=== PATIENT | male | born 1955 ===

== ENCOUNTER 2018-12-29 13:56 | Inpatient (IN) | payer MEDICARE, MEDICAID ==
[~2018-12-29] VITALS: Ht 172.7 cm; Wt 90.1 kg
[2018-12-29] VITALS (33 sets, daily range): BP systolic 80–128; BP diastolic 47–98; BMI 29.4
--- NOTE | 2018-12-29 15:40 | NUR ---
REC'D VIA STRETCHER, AFVSS ON LEVOPHED.
--- NOTE | 2018-12-29 16:00 | NUR ---
ASSESSED. SPEECH UNCLEAR BUT CAN STATE NAME AND THAT HE IS IN HOSPITAL. BLE CEDRICK-WRAPPED TOES TO ABOVE KNEE- REMOVED- SKIN INTACT.
--- NOTE | 2018-12-29 17:00 | NUR ---
FAMILY IN AND UPDATED, HISTORY OBTAINED FROM DTR & MOM.
--- NOTE | 2018-12-29 17:45 | NUR ---
CONSENTS FOR CVL/ BLOOD TRANSFUSION OBTAINED FROM DTR.
--- NOTE | 2018-12-29 18:20 | NUR ---
UNSUCCESFUL IN PLACING NGT X 20MIN.
[2018-12-29 20:18] LABS: APTT 34.1 SECONDS (22.8-39.4); INR 1.62 (0.85-1.17); PROTIME 18.6 SECONDS (11.6-15.0)
[2018-12-29 20:48] LABS: BASOPHILS 0.6 % (0-2); HEMOGLOBIN 14.9 g/dL (13.5-17.5); IMMATURE GRANULOCYTES 1.6 % (0-5); LYMPHOCYTES 5.4 % (15-50); MCH 25.2 pg (26.0-34.0); MCHC 34.7 g/dL (31.0-37.0); MCV 72.6 fL (80.0-100.0); MONOCYTES 5.5 % (2-11); NEUTROPHILS 78.9 % (40-80); PLATELET COUNT 55 10x3/uL (130-400); RBC 5.92 10x6/uL (4.20-6.10); RDW 21.2 % (11.5-14.5); WBC 12.4 10x3/uL (4.8-10.8)
[2018-12-29 20:49] LABS: % SATURATION 90 % (15-55); IRON 104 ug/dl (35-150); TOTAL IRON BIND CAPACITY 115 ug/dl (260-445)
[2018-12-29 20:50] LABS: UNSAT IRON BIND CAPACITY 11 ug/dl (150-375)
[2018-12-29 21:05] LABS: ALBUMIN 1.8 g/dL (3.4-5.0); ANION GAP 21.5 mmol/L (8-16); CARBON DIOXIDE 10.6 mmol/L (21.0-32.0); CREATININE - SERUM 4.6 mg/dL (0.6-1.3); MAGNESIUM - SERUM 1.6 mg/dL (1.8-2.4); POTASSIUM - SERUM 4.1 mmol/L (3.5-5.1); PROTEIN - SERUM 4.7 g/dL (6.4-8.2)
[2018-12-29 21:07] LABS: CALCIUM 6.5 mg/dL (8.5-10.1)
[2018-12-29 21:08] LABS: PLATELET ESTIMATE DECREASED
[2018-12-30] VITALS (109 sets, daily range): BP systolic 72–130; BP diastolic 47–96; Ht 172.7 cm; Wt 90.1 kg
--- NOTE | 2018-12-30 00:27 | NUR ---
1900 ASSEMENT COMPLETED AT THIS TIME, GETTING SETUP FOR BEDSIE CVL PLACEMENT. PT ALERT AND AWAKES. PT ORIENTED ONLY TO PERSON. 1934 DR NGUYEN AT BEDSIDE FOR CVL PLACEMENT 1944 LAB AT BESIDE, BLOOD DRAWN AND GIVEN TO COMMERCIAL INTERN FOR PROCESSING
--- NOTE | 2018-12-30 00:34 | NUR ---
6934 DR RALPH CALLED ABOUT ABNORMAL PABS. NEW ORDERS GIVEN AT THIS TIME
--- NOTE | 2018-12-30 00:35 | NUR ---
1939 CVL IN GOOD PLACEMENT, AND OK TO USE PER DR. NGUYEN
--- NOTE | 2018-12-30 00:36 | NUR ---
2300 REASSESSMENT COMPLETED AT THIS TIME. PT MORE ALERT AND TALKING AT THIS TIME. HEMODYNAMICS STABLE AND WILL CONTINUE TO MONITOR
--- NOTE | 2018-12-30 01:09 | NUR ---
PT O2 SAT DECREASED TO 85 %, PT COULD NOT UNDERSTAND TO CLOSE HIS MOUTH TO BREATH. PT WAS PLACED ON VENT-MASK AT 40% SPO2 INCREASED TO 92%
--- NOTE | 2018-12-30 01:22 | NUR ---
PT IV TO LEFT HAND WAS NOTED TO BE LEAKING, IVF WAS MOVED TO THE IV IN LEFT FOREARM
--- NOTE | 2018-12-30 05:36 | NUR ---
DR RALPH CALLED ABOUT ABG RESULTS, ORDERED TO CALL ANESTHIA FOR INTUBATION
[2018-12-30 06:08] LABS: ALBUMIN 1.6 g/dL (3.4-5.0); BILIRUBIN - DIRECT 3.04 mg/dL (0.00-0.30); BILIRUBIN - INDIRECT 0.95 mg/dL (0.00-1.00); BILIRUBIN - TOTAL 3.99 mg/dL (0.2-1.3); CREATININE - SERUM 4.8 mg/dL (0.6-1.3); MAGNESIUM - SERUM 1.6 mg/dL (1.8-2.4); POTASSIUM - SERUM 4.5 mmol/L (3.5-5.1); PROTEIN - SERUM 4.9 g/dL (6.4-8.2)
--- NOTE | 2018-12-30 06:15 | NUR ---
PT INTUBATED WITH 8.0 ETT @ 22 CM AT THE LIP PLACEMENT CONFIRMED WITH COLOMETERIC ETCO2 AND 5 POINT AUSCULTATION
--- NOTE | 2018-12-30 06:16 | NUR ---
PROFILE GRINDER AT BEDSIDE FOR INTUBATION
[2018-12-30 06:20] LABS: HEMATOCRIT 43.4 % (42.0-54.0); MCH 25.4 pg (26.0-34.0); MCHC 34.6 g/dL (31.0-37.0); MCV 73.6 fL (80.0-100.0); PLATELET COUNT 54 10x3/uL (130-400); RDW 21.7 % (11.5-14.5); WBC 12.9 10x3/uL (4.8-10.8)
[2018-12-30 06:39] LABS: ANION GAP 17.3 mmol/L (8-16); CALCIUM 6.3 mg/dL (8.5-10.1); CARBON DIOXIDE 14.2 mmol/L (21.0-32.0)
--- NOTE | 2018-12-30 07:00 | NUR ---
REPORT RECEIVED. ASSESSMENT COMPLETE PER FLOW SHEET. VSS. PT RESTING COMFORTABLY WILL CONTINUE TO MONITOR
--- NOTE | 2018-12-30 07:54 | NUR ---
RADIOLOGY CALLED GIVEN UDPATE STATED PT ETT MAY NEED REPOSITIONING TO REVIEW WITH PHYSICIAN. RESP GIVEN UDPATE.
--- NOTE | 2018-12-30 09:25 | NUR ---
DR RIDLEY GIVEN UPDATE REGAURDING CONSULT
[2018-12-30 09:52] LABS: EOSINOPHILS 5 % (0-7); LYMPHOCYTES 7 % (15-50); MONOCYTES 16 % (2-11); NEUTROPHILS 66 % (40-80); PLATELET ESTIMATE DECREASED
[2018-12-30 09:53] LABS: ACANTHOCYTES OCC; ANISOCYTOSIS OCC; BURR CELLS OCC; CRENATED CELLS 1+
--- NOTE | 2018-12-30 11:15 | NUR ---
REASSESSMENT COMPLET EPER FLOW SHEET. VSS. NO NEW CHANGES WILL CONTINUE TO MONITOR
--- NOTE | 2018-12-30 13:15 | NUR ---
DR NGUYEN AT BEDSIDE GIVEN UPDATE NEW ORDERS RECEIVED
--- NOTE | 2018-12-30 15:00 | NUR ---
REASSESSMENT COMPLETE PER FLOW SHEET. VSS. NO NEW CHANGES WILL CONTINUE TO MONITOR
--- NOTE | 2018-12-30 17:20 | NUR ---
FAMILY CALLED GIVEN UPDATE NO NEW CHANGES
--- NOTE | 2018-12-30 18:18 | NUR ---
CHG BATH ADM
[2018-12-31] VITALS (99 sets, daily range): BP systolic 78–130; BP diastolic 40–99
--- NOTE | 2018-12-31 07:00 | NUR ---
REPORT RECEIVED. ASSESSMENT COMPLETE PER FLOW SHEET. VSS. PT RESTING COMFORTABLY WILL CONTINUE TO MONITOR
[2018-12-31 07:10] LABS: BASOPHILS 0.5 % (0-2); EOSINOPHILS 0.4 % (0-7); HEMATOCRIT 34.9 % (42.0-54.0); HEMOGLOBIN 12.4 g/dL (13.5-17.5); IMMATURE GRANULOCYTES 2.2 % (0-5); LYMPHOCYTES 7.4 % (15-50); MCH 25.2 pg (26.0-34.0); MCHC 35.5 g/dL (31.0-37.0); MONOCYTES 4.5 % (2-11); RBC 4.92 10x6/uL (4.20-6.10); RDW 20.9 % (11.5-14.5); WBC 10.2 10x3/uL (4.8-10.8)
--- NOTE | 2018-12-31 07:13 | NUR ---
1900 ASSESSMENT COMPLETED AT THIS TIME, TEMP WAS NOTED TO BE 94.6, WARMING BLANKET PLACED ON PATIENT. 2100 MEDICINES GIVEN AT THIS TIME. TEMP WAS IMPROVING. 2300 REASSESSMENT COMPLETED AT THIS TIME, TEMP IMPROVING 0100 PT TUENED AND REPOSTITIONED AT THIS TIME. NO CHANGES NOTED. 0300 REASSESSMENT COMPLETED AT THIS TIME. NO DISTRESS NOTED. WILL CONTINUE TO MONITOR. 0500 PT WAS TURNED AT THIS TIME AND SMALL BM NOTED, PERICARE WAS GIVEN. PT ILAN WELL.
[2018-12-31 07:16] LABS: MCV 70.9 fL (80.0-100.0)
[2018-12-31 07:17] LABS: PLATELET COUNT 41 10x3/uL (130-400)
[2018-12-31 07:31] LABS: CREATININE - SERUM 4.6 mg/dL (0.6-1.3); MAGNESIUM - SERUM 1.6 mg/dL (1.8-2.4); PHOSPHOROUS 3.3 mg/dL (2.5-4.9)
[2018-12-31 07:38] LABS: CARBON DIOXIDE 18.3 mmol/L (21.0-32.0)
--- NOTE | 2018-12-31 08:12 | NUR ---
DR NGUYEN AT BEDSIDE. GIVEN UDPATE REGUARDING CRITICAL LABS. NO NEW ORDERS AT THIS TIME WILL CONTINUE TO MONITOR
[2018-12-31 08:26] LABS: ANION GAP 17.2 mmol/L (8-16); POTASSIUM - SERUM 3.5 mmol/L (3.5-5.1)
--- NOTE | 2018-12-31 09:20 | NUR ---
DR RIDLEY AT BEDSIDE GIVEN UDPATE
--- NOTE | 2018-12-31 10:15 | NUR ---
DR RALPH AT BEDSIDE GIVEN UDPATE
--- NOTE | 2018-12-31 11:00 | NUR ---
REASSESSMENT COMPLETE PER FLOW SHEET. VSS. NO NEW CHNGES WILL CONTINUE TO MONITOR
--- NOTE | 2018-12-31 12:10 | NUR ---
DR SEAMAN CALLED [facility] CONSULT. STATED OKAY
--- NOTE | 2018-12-31 12:11 | NUR ---
DR WALTERS OFFICE CALLED GIVEN UPDATE REGUARIND CONSULT
[2018-12-31 12:50] LABS: COMPLEMENT C4 8.1 mg/dL (17.4-52.2)
[2018-12-31 13:05] LABS: APTT 39.3 SECONDS (22.8-39.4); INR 1.59 (0.85-1.17); PROTIME 18.3 SECONDS (11.6-15.0)
[2018-12-31 13:07] LABS: APPEARANCE CLOUDY (CLEAR); BILIRUBIN NEGATIVE (NEGATIVE); COLOR DK YELLOW (YELLOW); EPITHELIAL CELLS 0-5 /hpf (0-5); GLUCOSE NEGATIVE (NEGATIVE); KETONE NEGATIVE (NEGATIVE); NITRITE NEGATIVE (NEGATIVE); PROTEIN TRACE mg/dL (NEGATIVE); SPECIFIC GRAVITY 1.015 (1.005-1.020); UROBILINOGEN NORMAL (NORMAL)
[2018-12-31 13:08] LABS: AMORPHOUS SEDIMENT >1+ /lpf (NONE SEEN); BACTERIA FEW /hpf (NONE SEEN); GRANULAR CAST 0-5 /lpf (NONE SEEN); MUCUS <1+ /lpf (NONE SEEN)
[2018-12-31 14:25] LABS: ERYTHROCYTE SEDIMENTATION RATE 0 mm/hr (0-20)
--- NOTE | 2018-12-31 15:15 | NUR ---
REASSESSMENT COMPLETE PER FLOW SHEET. VSS. NO NEW CHANGES WILL CONTINUE TO MONTIOR
--- NOTE | 2018-12-31 15:54 | MORECARE ---
CASE MANAGEMENT DISCHARGE SUMMARY PATIENT: GUMARO EVANS UNIT: [id number] ADM DATE: 12/29/18 AGE: 63 : 53 SEX: M ROOM/BED: D.2301 AUTHOR: CAROLINE PARKER PHYSICIAN: REFERRING PHYSICIAN: KEMAL RALPH MD DATE OF SERVICE: 12/31/18 Discharge Plan Patient Name: GUMARO EVANS [facility] : 1955 Planned Disposition: Home Anticipated Discharge Date: Discharge Date: Expected LOS: Initial Reviewer: [email or web address] Initial Review Date: 12/31/2018 Generated: 12/31/18 4:54 pm DCPIA - Discharge Planning Initial Assessment Updated by [email or web address]: Amelia Fontaine on 12/31/18 3:47 pm * Is the patient Alert and Oriented? No * How many steps to enter\exit or inside your home? * PCP Faith Paige APN * Pharmacy [facility] currently doesn't have one in [place] * Preadmission Environment Home with Family * ADLs Independent * Equipment Cane * List name and contact numbers for known caregivers / representatives who currently or will assist patient after discharge: Dasha Ellington - mother- [phone], lBanche Aguilar - daughter- [phone] * Verbal permission to speak to the caregivers and representatives has been obtained from the patient. N/A * Community resources currently utilized None * Additional services required to return to the preadmission environment? No * Can the patient safely return to the preadmission environment? Yes * Has this patient been hospitalized within the prior 30 days at any hospital? No Patient Name: GUMARO EVANS Page [phone] at 1554 All edits/amendments must be made on the electronic document DICTATION DATE: 12/31/181553 PEN RIDER: ROBERTO 12/31/181553 RPT#: [id number] DC DATE: STATUS: ADM IN [facility] [address] [place] [address] END OF REPORT
--- NOTE | 2018-12-31 16:04 | MORECARE ---
CASE MANAGEMENT DISCHARGE SUMMARY PATIENT: GUMARO EVANS UNIT: [id number] ADM DATE: 12/29/18 AGE: 63 : 53 SEX: M ROOM/BED: D.2301 AUTHOR: KEITH,DOC PHYSICIAN: REFERRING PHYSICIAN: KEMAL RALPH MD DATE OF SERVICE: 12/31/18 Discharge Plan Patient Name: GUMARO EVANS Facility: [facility]:[place] : 1955 Planned Disposition: Home Anticipated Discharge Date: Discharge Date: Expected LOS: Initial Reviewer: [email or web address] Initial Review Date: 12/31/2018 Generated: 12/31/18 5:03 pm Comments DCP- Discharge Planning Updated by [email or web address]: Amelia Fontaine on 12/31/18 2:[address] Patient Name: GUMARO EVANS Admission Status: Elective Accout number: [id number] Admission Date: 12-29-2018 : 1955 Admission Diagnosis: Attending: KEMAL RALPH Current LOS: 2 Anticipated DC Date: Planned Disposition: Home Primary Insurance: [facility] [employer] [employer]UT[employer] Discharge Planning Comments: CM met with patient's Mother Dasha and daughter Blanche at bedside after explaining CM role and obtaining verbal consent. Patient is currently sedated on vent. Patient lives at home with his mother and plans to return there upon discharge. Dasha states that she recently moved the patient in with her in [place] from [place]. CM discussed availability / needs of home health and medical equipment. Dasha states that the patient has a cane but no other medical equipment. Dasha states he may need home health upon discharge. Patient may require Hemodialysis as an outpatient CM will continue to follow and assist as needed with discharge planning / needs. Paving Contractor: Amelia Fontaine DCPIA - Discharge Planning Initial Assessment Updated by [id number]: Amelia Fontaine on 12/31/18 3:47 pm * Is the patient Alert and Oriented? No * How many steps to enter\exit or inside your home? * PCP Faith Paige APN * Pharmacy [facility] currently doesn't have one in [place] * Preadmission Environment Home with Family * ADLs Independent * Equipment Cane * List name and contact numbers for known caregivers / representatives who currently or will assist patient after discharge: Dasha Ellington - mother- [phone], Blanche Aguilar - daughter- [phone] * Verbal permission to speak to the caregivers and representatives has been obtained from the patient. N/A * Community resources currently utilized None * Additional services required to return to the preadmission environment? No * Can the patient safely return to the preadmission environment? Yes * Has this patient been hospitalized within the prior 30 days at any hospital? No Last DP export: 12/31/18 2:54 p Patient Name: GUMARO EVANS Page [phone] at 1604 All edits/amendments must be made on the electronic document DICTATION DATE: 12/31/181602 TRAINING SYSTEMS OFFICER: ROBERTO 12/31/181602 RPT#: [id number] DC DATE: STATUS: ADM IN [facility] [address] [place] [address] END OF REPORT
--- NOTE | 2018-12-31 16:15 | NUR ---
DR NGUYEN CALLED AWAITING CALL BACK
--- NOTE | 2018-12-31 17:50 | NUR ---
DR NGUYEN AT BEDSIDE. L IJ TRAIALYSIS CATH ADM
--- NOTE | 2018-12-31 19:00 | NUR ---
REPORT RECEIVED. RECEIVED PATIENT IN BED, SEDATED/INTUBATED. ROUSES TO LIGHT TOUCH. ETT INTACT/SECURE/PATENT AND CONNECTED TO [facility] VENT WITH SETTINGS ORDERED. HOB UP 30 DEGREES. MONITORS CONNECTED TO PATIENT WITH ALARMS SET. VSS. ON LEVOPHED GTT TITRATED PER ORDER. RECEIVING HD AT THIS TIME. DIALYSIS NURSE AT BEDSIDE. SHIFT ASSESSMENT COMPLETED PER FLOW SHEET.
--- NOTE | 2018-12-31 20:50 | NUR ---
SPOKE WITH DR. RIDLEY. UPDATED ON PATIENT CONDITION. NEW ORDERS RECEIVED.
--- NOTE | 2018-12-31 21:45 | NUR ---
PT RESTING ON AC 550, 18, 70% SATS 99%. I CHANGED THE FIO2 TO 60% SATS 97% AND HOLDING. WILL CONTINUE TO MONITOR
[2019-01-01] VITALS (48 sets, daily range): BP systolic 84–139; BP diastolic 54–98
[2019-01-01 05:41] LABS: INR 1.45 (0.85-1.17)
[2019-01-01 05:42] LABS: CREATININE - SERUM 3.6 mg/dL (0.6-1.3); HEMATOCRIT 30.5 % (42.0-54.0); MCHC 36.1 g/dL (31.0-37.0); MCV 69.3 fL (80.0-100.0)
[2019-01-01 05:45] LABS: ANION GAP 14.2 mmol/L (8-16); CARBON DIOXIDE 23.8 mmol/L (21.0-32.0)
[2019-01-01 05:46] LABS: WBC 13.2 10x3/uL (4.8-10.8)
[2019-01-01 05:47] LABS: PLATELET COUNT 35 10x3/uL (130-400)
--- NOTE | 2019-01-01 07:00 | NUR ---
REPORT RECEIVED. ASSESSMENT COMPLETE PER FLOW SHEET. VSS. NO NEW CHANGES WILL CONTINUE TO MONITOR
[2019-01-01 08:48] LABS: EOSINOPHILS 1 % (0-7); LYMPHOCYTES 4 % (15-50); MONOCYTES 5 % (2-11); NEUTROPHILS 83 % (40-80); SMUDGE CELLS OCC
[2019-01-01 08:49] LABS: ANISOCYTOSIS OCC; PLATELET ESTIMATE DECREASED
--- NOTE | 2019-01-01 09:10 | NUR ---
COMPLETE BB LINEN CHANGE ADM LARGE LOOSE BM NOTED. WILL CONTINUE TOMONITOR
--- NOTE | 2019-01-01 09:12 | NUR ---
Nutrition follow-up: Pt remains NPO Intubated, sedated on propofol Levophed in use Labs reviewed Will start nutrition support as soon as medically feasible. RDN following.
[2019-01-01 10:10] LABS: HAPTOGLOBIN 105 mg/dL (34-200); HAPTOGLOBIN 107 mg/dL (34-200); HEPATITIS C ANTIBODY <0.1 S/CO RAT (0.0-0.9)
--- NOTE | 2019-01-01 10:16 | NUR ---
DIALYSIS AT BEDSIDE. GIVEN UPDATE. WILL CONTINUE TO MONITOR
--- NOTE | 2019-01-01 11:00 | NUR ---
REASSESSMENT COMPLETE PER FLOW SHEET.V SS. NO NEW CHANGES WILL CONTINUE TO MONITOR
--- NOTE | 2019-01-01 11:00 | NUR ---
REASSESSMENT COMPELTE PER FLOW SHEET. VSS. NO NEW CHANGES WILL CONTINUET O MONITOR
[2019-01-01 12:09] LABS: ANA REFLEX - DIRECT Negative (Negative)
--- NOTE | 2019-01-01 12:50 | NUR ---
ATTEMPT TO CALL IN CONSULT FOR DERMATOLOGY. CLINIC STATED TYSON ANTHONY WAS PHOTOCOMPOSING KEYBOARD OPERATOR AT THIS TIME CLINIC GAVE ME HER PHONE NUMBER [phone]. NO ANSWER LEFT VOICE MAIL. WILL ATTEMPT AGAIN AT LATER TIME IF NO CALL BACK.
--- NOTE | 2019-01-01 12:56 | NUR ---
TYSON MIXON CALLED BACK STATED SHE WOULD NEED A DOC TO DOC BEFORE SEEING THE PATIENT. DR RALPH GIVEN THE PHONE DOC TO DOC ADM.
--- NOTE | 2019-01-01 14:30 | NUR ---
PROPOFOL D.C.'D PER ORDER
--- NOTE | 2019-01-01 15:00 | NUR ---
REASSESSMENT COMPLETE PER FLOW SHEET. VSS. NO NEW CHANGES WILL CONTINUET O MONITOR
[2019-01-01 17:08] LABS: SPE - A/G RATIO 0.8 (0.7-1.7); SPE - ALBUMIN 1.5 g/dL (2.9-4.4); SPE - ALPHA-1 GLOBULIN 0.2 g/dL (0.0-0.4); SPE - ALPHA-2 GLOBULIN 0.4 g/dL (0.4-1.0); SPE - BETA GLOBULIN 0.4 g/dL (0.7-1.3); SPE - GAMMA GLOBULIN 0.8 g/dL (0.4-1.8); SPE - M-SPIKE Not Observed g/dL (Not Observed); SPE - TOTAL PROTEIN 3.3 g/dL (6.0-8.5)
--- NOTE | 2019-01-01 17:15 | NUR ---
REPOSITIONED FOR COMFORT ORAL CARE ADM. NEEDS MET
[2019-01-02] VITALS (27 sets, daily range): BP systolic 92–156; BP diastolic 63–108
[2019-01-02 07:02] LABS: ANION GAP 11.5 mmol/L (8-16); CARBON DIOXIDE 26.6 mmol/L (21.0-32.0); CREATININE - SERUM 3.3 mg/dL (0.6-1.3); POTASSIUM - SERUM 3.1 mmol/L (3.5-5.1)
[2019-01-02 07:12] LABS: HEMATOCRIT 26.4 % (42.0-54.0); HEMOGLOBIN 9.3 g/dL (13.5-17.5); MCH 24.3 pg (26.0-34.0); MCHC 35.2 g/dL (31.0-37.0); MCV 68.9 fL (80.0-100.0); RBC 3.83 10x6/uL (4.20-6.10); RDW 19.4 % (11.5-14.5); WBC 12.3 10x3/uL (4.8-10.8)
[2019-01-02 07:13] LABS: CALCIUM 6.7 mg/dL (8.5-10.1)
[2019-01-02 07:14] LABS: PLATELET COUNT 34 10x3/uL (130-400)
--- NOTE | 2019-01-02 07:34 | NUR ---
UP IN BED ON VENT AT THIS TIME. PT AWAKE, NOT ON ANY SEDATION. ABLE TO ANSWER YES AND NO QUESTIONS AND FOLLOW COMMANDS. NO ACUTE DISTRESS NOTED. OGT TO LOW INT SUCTION. VSS. WILL CONTINUE PLAN OF CARE.
[2019-01-02 08:36] LABS: APTT 30.3 SECONDS (22.8-39.4); INR 1.37 (0.85-1.17); PROTIME 16.3 SECONDS (11.6-15.0)
[2019-01-02 09:02] LABS: EOSINOPHILS 1 % (0-7); LYMPHOCYTES 10 % (15-50); MONOCYTES 6 % (2-11); NEUTROPHILS 80 % (40-80)
[2019-01-02 09:10] LABS: PLATELET ESTIMATE DECREASED
[2019-01-02 09:11] LABS: ANISOCYTOSIS OCC; CRENATED CELLS 1+; HYPOCHROMASIA OCC; ROULEAUX OCC; SMUDGE CELLS OCC
--- NOTE | 2019-01-02 09:35 | NUR ---
ON CPAP TRIALS AT THIS TIME. TOLERATING WELL. NO ACUTE DISTRESS NOTED. VSS. PT REQUESTED TO WATCH TV, TV TURNED ON TO PT. PT DENIES ANY NEEDS. WILL CONTINUE PLAN OF CARE.
--- NOTE | 2019-01-02 11:35 | NUR ---
NO CHANGE. NO ACUTE DISTRESS NOTED. TURNED Q2H, ORAL CARE PROVIDED Q2H. WILL CONTINUE PLAN OF CARE.
--- NOTE | 2019-01-02 13:10 | NUR ---
NO CHANGE. NO ACUTE DISTRESS NOTED. PT ABLE TO COMMUNICATE NEEDS. STILL ON CPAP TRIAL. PT TURNED Q2H, ORAL CARE PROVIDED Q2H. WILL CONTINUE PLAN OF CARE.
[2019-01-02 13:40] LABS: MAGNESIUM - SERUM 1.6 mg/dL (1.8-2.4)
[2019-01-02 13:42] LABS: PHOSPHOROUS 2.4 mg/dL (2.5-4.9)
[2019-01-02 14:09] LABS: EHRLICHIA CHAFF IGG Negative (Neg:<1:64); EHRLICHIA CHAFF IGM Negative (Neg:<1:20); HGE IGG TITER Negative (Neg:<1:64); HGE IGM TITER Negative (Neg:<1:20)
--- NOTE | 2019-01-02 15:41 | NUR ---
NO ACUTE DISTRESS NOTED. NO CHANGE. VSS. TURNED Q2H. WILL CONTINUE PLAN OF CARE.
--- NOTE | 2019-01-02 17:03 | NUR ---
LYING IN BED ON VENT AT THIS TIME. EYES OPEN. DENIES ANY NEEDS. NO ACUTE DISTRESS NOTED. TURNED Q2H. ORAL CARE PROVIDE Q2H. WILL CONTINUE PLAN OF CARE.
[2019-01-02 17:08] LABS: ANCA - ANTIMYELOPEROXIDASE <9.0 U/mL (0.0-9.0); ANCA - ANTIPROTEINASE 3 <3.5 U/mL (0.0-3.5); ANCA - ATYPICAL <1:20 titer (Neg:<1:20); ANCA - CYTOPLASMIC <1:20 titer (Neg:<1:20); ANCA - PERINUCLEAR <1:20 titer (Neg:<1:20)
--- NOTE | 2019-01-02 18:56 | NUR ---
UNABLE TO DETERMINE PREFERRED PHARMACY OR MED REC AT THIS TIME. PER NEXT SHIFT NURSE WILL ASK FAMILY TONIGHT.
[2019-01-02 19:08] LABS: UPE RAND - ALBUMIN 49.6 % (()); UPE RAND - ALPHA 1 GLOBULIN 5.4 % (()); UPE RAND - ALPHA 2 GLOBULIN 14.8 % (()); UPE RAND - GAMMA GLOBULIN 13.3 % (())
[2019-01-03] VITALS (23 sets, daily range): BP systolic 97–150; BP diastolic 70–112
[2019-01-03 04:07] LABS: FIBRIN SPLIT PRODUCTS 10 ug/mL (<5)
[2019-01-03 05:15] LABS: BASOPHILS 0.3 % (0-2); EOSINOPHILS 0 % (0-7); HEMATOCRIT 27.8 % (42.0-54.0); HEMOGLOBIN 9.5 g/dL (13.5-17.5); IMMATURE GRANULOCYTES 2.3 % (0-5); LYMPHOCYTES 7.8 % (15-50); MCH 24.9 pg (26.0-34.0); MCHC 34.2 g/dL (31.0-37.0); MONOCYTES 6.7 % (2-11); NEUTROPHILS 82.9 % (40-80); RBC 3.82 10x6/uL (4.20-6.10); RDW 20.3 % (11.5-14.5)
[2019-01-03 05:18] LABS: MCV 72.9 fL (80.0-100.0); PLATELET COUNT 41 10x3/uL (130-400)
[2019-01-03 05:31] LABS: ANION GAP 14.9 mmol/L (8-16); CARBON DIOXIDE 23.9 mmol/L (21.0-32.0); CREATININE - SERUM 3.5 mg/dL (0.6-1.3); MAGNESIUM - SERUM 1.9 mg/dL (1.8-2.4); PHOSPHOROUS 2.8 mg/dL (2.5-4.9); POTASSIUM - SERUM 3.8 mmol/L (3.5-5.1)
--- NOTE | 2019-01-03 08:51 | NUR ---
ORAL CONTRANST FOR CT GIVEN AT THIS TIME THROUGH OG TUBE. CT WILL BE HERE TO GET PATIENT IN 1HR.
--- NOTE | 2019-01-03 09:41 | NUR ---
NUTRITION F/U CHART, LABS REVIEWED. PT REMAINS ON VENT, TPN INFUSING AT 40 CC/HR. 20% INTRALIPIDS 250 CC/Q [address] FOLLOWING
--- NOTE | 2019-01-03 09:45 | NUR ---
DR. RIDLEY AT BEDSIDE. ORDERED 25MCG FENTANYL X 1. ASSESS HR AND BP AFTER FENTANYL IS GIVEN.
[2019-01-03 10:10] LABS: ANTI-GLOMERULAR BASMENT MEMBRN 2 units (0-20)
--- NOTE | 2019-01-03 10:20 | NUR ---
PT TRANSPORTED TO RADIOLOGY FOR CT SCAN OF ABDOMEN.
--- NOTE | 2019-01-03 11:37 | NUR ---
TEMPERATURE 101.3. DR. RALPH NOTIFIED. ORDERED BLOOD CULTURES AND TYLENOL 650 SUPPOSITORY.
--- NOTE | 2019-01-03 11:49 | NUR ---
SPOKE WITH DR. RIDLEY TO UPDATE ON HR AND BP AFTER FENTANYL WAS GIVEN. ALSO TOLD HIM PT HAS FEVER. HE ORDERED DIETARY CONSULT FOR ADVISE ON TUBE FEEDINGS.
--- NOTE | 2019-01-03 12:06 | NUR ---
SMALL AMOUNT OF LOOSE, DARK GREEN STOOL NOTED AT THIS TIME. PARTIAL LINEN AND PERICARE PROVIDED AT THIS TIME.
--- NOTE | 2019-01-03 13:55 | NUR ---
DIALYSIS NURSE IN ROOM AT THIS TIME. ORAL TEMP 98.2. WILL CONTINUE TO MONITOR.
--- NOTE | 2019-01-03 14:41 | NUR ---
HR WENT UP INTO 130-140S WHEN DIALYSIS WAS STARTED. DR. RIDLEY NOTIFIED. ORDERED FENTANYL 25MCG Q 2HR PRN FOR AGITATION. FENTANYL GIVEN AT THIS TIME. WILL CONTINUE TO MONITOR.
[2019-01-03 15:10] LABS: RMSF IGM 0.29 index (0.00-0.89)
--- NOTE | 2019-01-03 16:31 | NUR ---
DIALYSIS FINISHED AT THIS TIME. TOOK 1.5L OFF WITH DIALYSIS. PT RESTING COMFORTABLY. WILL CONTINUE TO MONITOR.
--- NOTE | 2019-01-03 17:43 | NUR ---
CHG BATH GIVEN. COMPLETE LINEN CHANGED. AQUAPHOR CREAM APPLIED TO SKIN. SKIN TEAR NOTED ON R-FOREARM, LEFT ARM, AND LEFT KNEE. MODERATED AMOUNT OF DARK, GREEN, LOOSE STOOL NOTED AT THIS TIME. PERICARE AND XIAO CARE PROVIDED. PT TOLERATED WELL. REPOSITIONED FOR COMFORT. WILL CONTINUE TO MONITOR.
--- NOTE | 2019-01-03 18:02 | NUR ---
OSMOLITE 1.0 TUBE FEEDING INITIATED AT THIS TIME VIA OGT. RATE OF 22CC/HR WITH 100CC WATER FLUSH Q 4HR.
[2019-01-03 18:08] LABS: ADAMTS13 ACTIVITY 20.7 % (>66.8)
--- NOTE | 2019-01-03 21:20 | NUR ---
NO VISITORS PRESENT AT THIS TIME, VSS, CONT TO MONITOR.
[2019-01-04] VITALS (23 sets, daily range): BP systolic 107–132; BP diastolic 76–97
--- NOTE | 2019-01-04 01:00 | NUR ---
PT POSITIONED FOR COMFORT SUPPORTED WITH PILLOWS, ORAL CARE AND SUCTIONING PROVIDED, VSS.
--- NOTE | 2019-01-04 05:22 | NUR ---
NO VISITORS PRESENT AT THIS TIME, VSS, CONT POC.
[2019-01-04 05:42] LABS: HEMATOCRIT 25.9 % (42.0-54.0); HEMOGLOBIN 8.8 g/dL (13.5-17.5); MCH 24.5 pg (26.0-34.0); MCV 72.1 fL (80.0-100.0); RBC 3.59 10x6/uL (4.20-6.10); RDW 20.5 % (11.5-14.5); WBC 11.5 10x3/uL (4.8-10.8)
[2019-01-04 05:43] LABS: PLATELET COUNT 37 10x3/uL (130-400)
[2019-01-04 06:01] LABS: ANION GAP 15.3 mmol/L (8-16); CARBON DIOXIDE 24.5 mmol/L (21.0-32.0); CREATININE - SERUM 3.3 mg/dL (0.6-1.3); MAGNESIUM - SERUM 1.9 mg/dL (1.8-2.4); POTASSIUM - SERUM 3.8 mmol/L (3.5-5.1)
[2019-01-04 06:05] LABS: PHOSPHOROUS 3.6 mg/dL (2.5-4.9)
[2019-01-04 06:29] LABS: EOSINOPHILS 1 % (0-7); LYMPHOCYTES 21 % (15-50); MONOCYTES 8 % (2-11); NEUTROPHILS 70 % (40-80); PLATELET ESTIMATE DECREASED
--- NOTE | 2019-01-04 08:26 | NUR ---
UP IN BED ON VENT AT THIS TIME. NO ACUTE DISTRESS NOTED. VSS. PT OPENS EYES WHEN SPOKEN TO AND FOLLOWS COMMANDS. TURNED Q2H. ORAL CARE PROVIDED Q2H. WILL CONTINUE PLAN OF CARE.
--- NOTE | 2019-01-04 08:32 | NUR ---
Nutrition follow-up: TPN infusing @ 40 ml/hr; intralipids Q 72 hrs Osmolite @ 20 ml/hr per Dr Damon until Sunday Labs reviewed Continue current TPN RDN following.
--- NOTE | 2019-01-04 09:33 | NUR ---
PER DR RIDLEY, PLACE PT ON CPAP TRIAL, DC TPN AFTER THIS CURRENT BAG COMPLETES, DC ALL OTHER IV FLUID.
--- NOTE | 2019-01-04 11:02 | NUR ---
NO CHANGE. NO ACUTE DISTRESS NOTED. VSS. PT TURNED Q2H. ORAL CARE PROVIDED Q2H. WILL CONTINUE PLAN OF CARE.
--- NOTE | 2019-01-04 12:32 | NUR ---
BLOOD GLUCOSE 406, PER DR RALPH INCREASE SLIDING SCALE RESISTANCE FROM LOW RESISTANCE TO INTERMEDIATE RESISTANCE. PTS FAMILY AT BEDSIDE. NO ACUTE DISTRESS NOTED. VSS. PT AWAKE ON VENT, FOLLOWS COMMANDS AND ANSWERS QUESTIONS. WILL CONTINUE PLAN OF CARE.
[2019-01-04] MEDS ORDERED: POTASSIUM CHLO20 MEQ PO (12:44)
[2019-01-04] MEDS ORDERED: LASIX80 MG PO (12:44)
[2019-01-04] MEDS ORDERED: GLUCOPHAGE500 MG PO (12:44)
--- NOTE | 2019-01-04 12:46 | NUR ---
MED REC AND PREFERRED PHARMACY CONFIRMED WITH PTS MOTHER AT THIS TIME.
--- NOTE | 2019-01-04 14:40 | NUR ---
CURRENTLY ON DIALYSIS, PT HAS BEEN ON CPAP TRIAL SINCE AROUND 929, NOW APPEARS TO EXPERIENCE DISTRESS WITH HEART RATE NOW INCREASED TO 118 SINUS TACH. BY REPIRATORY THERAPIST, VENT SETTINGS CHANGED BACK TO ASSIST CONTROL TO ALLOW PT TO REST. PT TURNED Q2H. ORAL CARE PROVIDED Q2H. WILL CONTINUE TO CLOSELY OBSERVE.
--- NOTE | 2019-01-04 15:47 | NUR ---
WILL HOLD SCHEDULED ANTIBIOTIC UNTIL DIALYSIS COMPLETE.
--- NOTE | 2019-01-04 16:35 | NUR ---
CHG BATH GIVEN AT THIS TIME, TOTAL LINEN CHANGE PROVIDED. NO ACUTE DISTRESS NOTED. PT TURNED Q2H, ORAL CARE PROVIDED Q2H. WILL CONTINUE PLAN OF CARE.
--- NOTE | 2019-01-04 18:05 | NUR ---
NO ACUTE DISTRESS NOTED. NO CHANGE. VSS. PT AWAKE ON VENT, FOLLOWS COMMANDS. WILL CONTINUE PLAN OF CARE.
--- NOTE | 2019-01-04 19:00 | NUR ---
REPORT RECEIVED INITIAL ASSESSMENT COMPLETE. PT OPENS EYES SPONTANEOUSLY FOLLOWS COMMANDS AND NODS HEAD TO QUESTIONS. CVP READING 17. CM READING SR WITHOUT ECTOPY ALARMS ON AND AUDIBLE. NO S/S OF DISTRESS WILL MONITOR
[2019-01-04] MEDS ORDERED: COREG6.25 MG PO (19:40)
[2019-01-04] MEDS ORDERED: ULTRAM50 MG PO (19:41)
--- NOTE | 2019-01-04 20:45 | NUR ---
PTS MOTHER CALLED GAVE PASSCODE AND THEN REPORTED COUPLE OF MEDICINES SHE COULD NOT REMEMBER WHEN SHE WAS ASKED ABOUT HIS HOME MEDICATIONS.
--- NOTE | 2019-01-04 23:00 | NUR ---
REASSESSMENT MADE NO CHANGES PTS CVP HAVE BEEN 17-19. VSS NO S/S OF PAIN OR DISTRESS CPOC
[2019-01-05] VITALS (24 sets, daily range): BP systolic 96–136; BP diastolic 73–95
--- NOTE | 2019-01-05 01:00 | NUR ---
PT RESTING QUIETLY VSS NO DISTRESS NOTED CPOC
--- NOTE | 2019-01-05 03:00 | NUR ---
REASSESSMENT MADE PT NODS HEAD NO TO QUESTION OF PAIN REPOSITIONED FOR COMFORT. CPOC
--- NOTE | 2019-01-05 06:15 | NUR ---
PT ACCUCHECK 295 THIS AM COVERED PER SS SEE EMAR. CPOC
[2019-01-05 06:40] LABS: ANION GAP 14.6 mmol/L (8-16); CALCIUM 7.3 mg/dL (8.5-10.1); CARBON DIOXIDE 24.4 mmol/L (21.0-32.0); CREATININE - SERUM 2.8 mg/dL (0.6-1.3)
[2019-01-05 07:04] LABS: BASOPHILS 0.2 % (0-2); EOSINOPHILS 0.1 % (0-7); HEMATOCRIT 25.5 % (42.0-54.0); HEMOGLOBIN 8.9 g/dL (13.5-17.5); IMMATURE GRANULOCYTES 2.1 % (0-5); LYMPHOCYTES 3.8 % (15-50); MCH 24.9 pg (26.0-34.0); MCHC 34.9 g/dL (31.0-37.0); MCV 71.2 fL (80.0-100.0); MONOCYTES 7.2 % (2-11); NEUTROPHILS 86.6 % (40-80); RBC 3.58 10x6/uL (4.20-6.10); RDW 20.2 % (11.5-14.5); WBC 13.3 10x3/uL (4.8-10.8)
[2019-01-05] MEDS ORDERED: COREG6.25 MG PO (07:18)
[2019-01-05] MEDS ORDERED: ZYLOPRIM300 MG PO (07:19)
[2019-01-05 07:26] LABS: PLATELET COUNT 42 10x3/uL (130-400)
--- NOTE | 2019-01-05 08:06 | NUR ---
LYING IN BED ON VENT AT THIS TIME WITH EYES OPEN, FOLLOWS COMMANDS. NO ACUTE DISTRESS NOTED. OGT TUBE FEEDING RESIDUAL NOTED AT 5ML. PT CALM. VSS. TURNED Q2H, ORAL CARE PROVIDED Q2H. WILL CONTINUE PLAN OF CARE.
--- NOTE | 2019-01-05 10:03 | NUR ---
PT HAS BEEN EXTUBATED AT 1000 ON 3L NC. OXYGEN SATURATION AT 97%. AT THIS TIME PTS BROTHER CALLED FOR UPDATE, NOTIFIED THAT PT HAS BEEN EXTUBATED. HE STATED HE WAS ON HIS WAY TO SEE PT AND WOULD NOTIFY THE REST OF THE FAMILY. NO ACUTE DISTRESS NOTED. VSS. WILL CONTINUE PLAN OF CARE.
--- NOTE | 2019-01-05 11:45 | NUR ---
HEART RATE NOTED TRENDING 136 SINUS TACH. EKG OBTAINED AND CONFIRMED SINUS TACH. EKG WAS OBTAINED PER DR RALPH ORDERS. OXYGEN SATURATION NOTED TO TREND 89%-91% ON 4L NC. PER DR RIDLEY, PLACE BIPAP. BIPAP IN PLACE AT THIS TIME FIO2 AT 40%. WILL CONTINUE PLAN OF CARE.
--- NOTE | 2019-01-05 12:23 | NUR ---
PT RESTING IN BED WITH EYES CLOSED ON BIPAP AT THIS TIME. NO ACUTE DISTRESS NOTED. HEART RATE SINUS IN 90S. WILL CONTINUE TO OBSERVE.
--- NOTE | 2019-01-05 14:22 | NUR ---
LYING IN BED ON BIPAP AT THIS TIME. NO ACUTE DISTRESS NOTED. PT EYES CLOSED. RESPIRATIONS UNLABORED AND STEADY. VSS. WILL CONTINUE PLAN OF CARE.
--- NOTE | 2019-01-05 14:55 | NUR ---
PER DR SEAMAN; KEEP PT NPO UNTIL SPEECH EVAL FOR TOMORROW THEN WILL DECIDE HOW TO PROGRESS DIRECTED BY SURGEON.
--- NOTE | 2019-01-05 16:08 | NUR ---
NO ACUTE DISTRESS NOTED. NO CHANGE. PT TURNED Q2H. ORAL CARE PROVIDED Q2H. VSS. WILL CONTINUE PLAN OF CARE.
--- NOTE | 2019-01-05 18:52 | NUR ---
NO ACUTE DISTRESS NOTED. VSS. PT RECIEVING DIALYSIS AT THIS TIME. WILL CONTINUE PLAN OF CARE.
--- NOTE | 2019-01-05 19:00 | NUR ---
REPORT RECIEVED, PATIENT IN BED RECIEVING DIALYSIS AT THIS TIME. ASESSMENT COMPLETED, SEE FLOWSHEET. RT SUBCLAVIAN IV INFUSING, SEE IV FLOWSHEET. LT IJ TRIALYSIS IN PLACE. SCD'S IN PLACE AND ON, PT ON BIPAP AT 40% FIO2. VITALS STABLE, NO ACUTE DISTRESS NOTED AT THIS TIME.
--- NOTE | 2019-01-05 21:00 | NUR ---
TOTAL ORAL CARE DONE, PT GIVEN BREAK FROM BIPAP, 4L NC, TOLERATING WELL WITH O2 AT 96%. NO ACUTE DISTRESS NOTED.
--- NOTE | 2019-01-05 23:00 | NUR ---
CHG BATH GIVEN, COMPLETE LINEN CHANGE, ORAL CARE GIVEN. BREAK FROM BIPAP WITH 4L NC, TOLERATING WELL AT 94% O2. NO ACUTE DISRESS NOTED. VITALS STABLE WILL CONTINUE TO MONITOR.
[2019-01-06] VITALS (24 sets, daily range): BP systolic 113–130; BP diastolic 79–96
--- NOTE | 2019-01-06 01:07 | NUR ---
PT RESTING IN BED, NO SIGNS OF ACUTE DISTRESS. VITALS STABLE, WILL CONTINUE TO MONITOR.
--- NOTE | 2019-01-06 03:00 | NUR ---
PT RESTING, BIPAP ON, NO SIGNS OF ACUTE DISTRESS.
[2019-01-06 05:21] LABS: HEMATOCRIT 25.4 % (42.0-54.0); HEMOGLOBIN 8.8 g/dL (13.5-17.5); MCHC 34.6 g/dL (31.0-37.0); MCV 72.2 fL (80.0-100.0); RBC 3.52 10x6/uL (4.20-6.10); RDW 20.8 % (11.5-14.5); WBC 12.5 10x3/uL (4.8-10.8)
[2019-01-06 05:22] LABS: PLATELET COUNT 48 10x3/uL (130-400)
[2019-01-06 05:42] LABS: LYMPHOCYTES 13 % (15-50); MONOCYTES 7 % (2-11); NEUTROPHILS 78 % (40-80)
[2019-01-06 05:43] LABS: CALCIUM 7.4 mg/dL (8.5-10.1); CARBON DIOXIDE 24.9 mmol/L (21.0-32.0); CREATININE - SERUM 2.9 mg/dL (0.6-1.3); MAGNESIUM - SERUM 2.1 mg/dL (1.8-2.4); PHOSPHOROUS 4.9 mg/dL (2.5-4.9); PLATELET ESTIMATE DECREASED; POTASSIUM - SERUM 3.9 mmol/L (3.5-5.1)
--- NOTE | 2019-01-06 07:00 | NUR ---
REC'D REPORT AND RESUMED CARE, AWAKE, FOLLOWS SIMPLE COMMANDS, DENIES PAIN, CPAP IN USE AT 40%, RIGHT IJ HEMESPLIT AND RT TLSC, SL, SKIN SLOUGHING AND SCALY, VSS, ASSESSMENT COMPLETED PER FLOWSHEET, REPOSITIONED UP TO THE BACK WITH HEELS FLOATED, ORAL COMPLETED, SPEAKS IN A WHISPER, HARD TO UNDERSTAND
--- NOTE | 2019-01-06 09:00 | NUR ---
MORNING MEDS GIVEN PER AUG FLOWSHEET
--- NOTE | 2019-01-06 09:30 | NUR ---
Nutrition follow-up: Pt extubated 01/05 NPO until seen by speech labs reviewed wt: 235# BIPAP Continues with HD RDN following
--- NOTE | 2019-01-06 10:00 | NUR ---
CPAP OFF AND CHANGED TO HF NC AR 4L BY RT
--- NOTE | 2019-01-06 11:00 | NUR ---
RESTING WITH EYES OPEN, VSS, NO ACUTE CHANGE FROM PREVIOUS ASSESSMENT
--- NOTE | 2019-01-06 13:55 | OP ---
PATIENT NAME: GUMARO EVANS MEDICAL RECORD: [id number] :51 LOCATION:[facility] D.2301 ADMISSION DATE:12/29/18 SURGEON: DERIAN CAMPOS MD DATE OF OPERATION: 01/02/2019 After general sedation via TIVA via anesthesia, transesophageal Omniplane probe was placed in the distal esophagus and the proximal stomach without any difficulties. FINDINGS: No LVH. LV internal dimensions are normal. LV is globally hypokinetic with marked septal hypokinesis. Overall LV function is reduced at 20% to 25%. Aortic valve is tricuspid. No evidence of stenosis by Doppler interrogation. There is a trivial AI by color-flow imaging. Left atrium appears dilated. Mitral valve is status post repair, well visualized, with no evidence of endocarditis. Probably mild MR by color-flow imaging. Right-sided chambers are grossly normal. [id number]-[id number] TR by color-flow imaging. At the end of procedure, transesophageal Omniplane probe was turned posteriorly and this showed atherosclerotic debris in the descending aorta. IMPRESSION: No evidence of vegetation in all 4 cardiac valves, but cardiomyopathy present with EF 20% to 25%. TRANSINT:[id number] Voice Confirmation ID: [id number] DOCUMENT ID: [id number] DERIAN CAMPOS MD at 1355 CC: [id number] DICTATION DATE: 01/02/19 1443 DIRECTOR HUMAN SERVICES: 01/02/19 1553 ADM IN [facility] [id number] [place] [address]
--- NOTE | 2019-01-06 15:00 | NUR ---
ASSESSMENT COMPLETED, NO ACUTE CHANGE FROM PREVIOUS, CONTINUES ON HF NC AT 4L, CALL LIGHT IN REACH
--- NOTE | 2019-01-06 17:00 | NUR ---
CHG BATH GIVEN, AQUAPHOR OINTMENT APPLIED, LINENS CHANGED, REPOSITIONED UP AND TO RIGHT SIDE
--- NOTE | 2019-01-06 19:00 | NUR ---
REPORT RECIEVED, PT ALERT, DISORIENTED TO PLACE. S1S2, VITALS STABLE. ASSESSMENT COMPLETED, SEE FLOWSHEET. LT JUGULAR TRIALYSIS, CDI. RIGHT SUBCLAVIAN CVL DRESSING CDI. PT ON 4L HIGH FLOW NC, NO ACUTE DISTRESS NOTED.
--- NOTE | 2019-01-06 21:08 | NUR ---
PT RECIEVING DIALYSIS, VITALS STABLE, WILL CONTINUE TO MONITOR.
--- NOTE | 2019-01-06 23:56 | NUR ---
PT RECIEVING DIALYSIS. LAYING IN BED, VITALS STABLE, NO ACUTE DISTRESS NOTED.
[2019-01-07] VITALS (24 sets, daily range): BP systolic 112–133; BP diastolic 77–103
--- NOTE | 2019-01-07 00:39 | NUR ---
PT COMPLETED DIALYSIS. VITALS STABLE, NO SIGNS OF ACUTE DISTRESS.
--- NOTE | 2019-01-07 00:53 | NUR ---
PT ALERT, LAYING IN BED COMFORTABLY, VITALS STABLE. WILL CONTINUE TO MONITOR.
--- NOTE | 2019-01-07 02:56 | NUR ---
ORAL CARE PROVIDED. BIPAP TAKEN OFF FOR BREAK, PLACED ON 4L HIGH FLOW NC. TOLERATING WELL, VITALS STABLE, WILL CONTINUE TO MONITOR.
[2019-01-07 05:09] LABS: APTT 27.9 SECONDS (22.8-39.4); INR 1.55 (0.85-1.17)
--- NOTE | 2019-01-07 05:17 | NUR ---
XIAO CARE COMPLETED, PT IN BED RESTING, TURNED BED TO FACE TV, ALL LINES SECURE, CALL LIGHT IN REACH, VITALS STABLE.
[2019-01-07 05:19] LABS: BASOPHILS 0.1 % (0-2); EOSINOPHILS 0.1 % (0-7); HEMOGLOBIN 9.1 g/dL (13.5-17.5); IMMATURE GRANULOCYTES 1.1 % (0-5); LYMPHOCYTES 5.1 % (15-50); MCH 25.3 pg (26.0-34.0); MCHC 33.7 g/dL (31.0-37.0); MONOCYTES 3.5 % (2-11); NEUTROPHILS 90.1 % (40-80); RDW 22.1 % (11.5-14.5); WBC 9.5 10x3/uL (4.8-10.8)
[2019-01-07 05:21] LABS: PLATELET COUNT 48 10x3/uL (130-400)
[2019-01-07 05:22] LABS: ALBUMIN 3.6 g/dL (3.4-5.0); ANION GAP 16.3 mmol/L (8-16); BILIRUBIN - DIRECT 4.36 mg/dL (0.00-0.30); BILIRUBIN - INDIRECT 1.76 mg/dL (0.00-1.00); BILIRUBIN - TOTAL 6.12 mg/dL (0.2-1.3); CALCIUM 7.4 mg/dL (8.5-10.1); CARBON DIOXIDE 26.5 mmol/L (21.0-32.0); CREATININE - SERUM 2.3 mg/dL (0.6-1.3); MAGNESIUM - SERUM 1.9 mg/dL (1.8-2.4); PHOSPHOROUS 4.9 mg/dL (2.5-4.9); POTASSIUM - SERUM 3.8 mmol/L (3.5-5.1); PROTEIN - SERUM 5.9 g/dL (6.4-8.2)
--- NOTE | 2019-01-07 07:00 | NUR ---
REC'D REPORT, AND RESUMED CARE, SLEEPING AROUSABLE TO VERBAL STIMULI, VSS, FOLLOWS COMMANDS, DENIES PAIM, ASSESSMENT COMPLETE PER FLOWSHEET. REPOSOTIONED UP AND TO LEFT SIDE WITH PILLOW TO BACK AND HEELS FLOATED, NOTED SKIN: SCALY AND PEELING, CALL LIGHT IN REACH, VOICES NO NEEDS AT THIS TIME.
--- NOTE | 2019-01-07 09:00 | NUR ---
MORNING MEDS GIVEN PER PATITO FLOWHSHEET
--- NOTE | 2019-01-07 11:00 | NUR ---
ORAL CARE AND SUCTION COMPLETED, VOICES NO NEEDS AT THIS TIME. NO OTHER ACUTE CHANGE FROM PREVIOUS
--- NOTE | 2019-01-07 12:31 | NUR ---
NUTRITION F/U CHART/LABS REVIEWED. TPN AND INTRALIPID ORDERS WRITTEN. WILL MONITOR LABS AND ADJUST TPN NEEDED. RD FOLLOWING
--- NOTE | 2019-01-07 13:40 | NUR ---
HD BEGAN, PATIENT AWAKE AND ALERT, VSS, NO SIGNS OF DISTRESS
--- NOTE | 2019-01-07 15:00 | NUR ---
CONTINUES ON HD, VSS, AWAKE AND ALERT, NO ACUTE CHANGE FROM PREVIOUS
[2019-01-07 15:10] LABS: F. TULARENSIS - IGG Negative (Negative); F. TULARENSIS - IGM Negative (Negative)
--- NOTE | 2019-01-07 15:23 | NUR ---
F/U SWALLOW EVAL COMPLETE, REG DIET MECH SOFT WITH THIN LIQUIDS
--- NOTE | 2019-01-07 15:30 | NUR ---
OT NOTE: PT COMPLETED BED MOB WITH MAX A X 3 FOR SUPINE TO SIT AND SIDE ROLLING WITH HYGIENE TASKS. PT COMPLETED HYGIENE TASKS WITH MAX/TOTAL A. PT PLEASANT AND MOTIVATED. THANK YOU, BONY MCKEON
--- NOTE | 2019-01-07 19:10 | NUR ---
Received patient resting in bed with eyes open, assessment completed per mita. Patient AO x4, answers appropriately/soft spoken. L IJ trialysis dressing CDI. S1/S2 noted NSR on telemetry with HR 80, rythmic/regular with no pacing noted. Breathing is shallow on 4L via NC with O2 sat 97%, lung sounds clear bilateral upper with slight expiratory wheeze mid and diminished lower. Abdomen is distended/soft with bowel sounds active x4, non-tender. Carmona secured, clear slight grace urine noted. Generalized edema/moderate weakness noted all extremities, all pulses palpable with cap refill < 3 sec. Skin warm/slight moisture noted, flaking skin/scabs noted generalized. Denies pain or other needs at this time, see flowsheet for details. All VSS and will continue to monitor.
--- NOTE | 2019-01-07 21:00 | NUR ---
HS meds given as ordered, no s/s of distress at this time. Patient denies pain or other needs at this time, all VSS and will continue to monitor.
--- NOTE | 2019-01-07 23:00 | NUR ---
Reassessment completed per flowsheet, no changes noted from previous assessment. S1/S2 with rare pacing noted on telemetry, rythmic and regular. Breathing is shallow on BiPAP 30% with O2 sat 94%. All pulses palpable with cap refill < 3 sec, skin warm/dry. Denies pain or other needs at this time, see flowsheet for details. All VSS and will continue to monitor.
[2019-01-08] VITALS (11 sets, daily range): BP systolic 116–137; BP diastolic 84–98
--- NOTE | 2019-01-08 01:00 | NUR ---
Patient sleeping in bed on BiPAP 30% with O2 sat 93%, no s/s of distress at this time. Repositioned for comfort, no further needs and will continue to monitor.
--- NOTE | 2019-01-08 03:00 | NUR ---
Reassessment completed per flowsheet, no changes noted from previous assessment. S1/S2 noted NSR with no pacing on telemetry, rythmic and regular. Breathing is shallow on BiPAP 30% with O2 sat 93%, lung sounds clear bilateral upper and mid with diminished lower. All pulses palpable with cap refill < 3 sec, skin warm/dry. See flowsheet for details, all VSS and will continue to monitor.
--- NOTE | 2019-01-08 07:00 | NUR ---
PATIENT REPORT RECEIVED SHIFT ASSESSMENT COMPLETED. PT ON 4L NC ALL PULSES PALPABLE LUNG SOUNDS CLEAR, NSR. BED IN LOW POSITION LOCKED, CALL LIGHT WITHIN REACH, WILL CONTINUE TO MONITOR
[2019-01-08 07:10] LABS: ANION GAP 16.2 mmol/L (8-16); CALCIUM 7.3 mg/dL (8.5-10.1); CARBON DIOXIDE 25.7 mmol/L (21.0-32.0); CREATININE - SERUM 2.7 mg/dL (0.6-1.3); MAGNESIUM - SERUM 2.2 mg/dL (1.8-2.4); PHOSPHOROUS 5.6 mg/dL (2.5-4.9); POTASSIUM - SERUM 3.9 mmol/L (3.5-5.1); PRE-ALBUMIN 18.1 mg/dL (18.0-35.7)
[2019-01-08 08:09] LABS: BASOPHILS 0.1 % (0-2); EOSINOPHILS 0 % (0-7); HEMATOCRIT 27.1 % (42.0-54.0); HEMOGLOBIN 8.7 g/dL (13.5-17.5); IMMATURE GRANULOCYTES 0.6 % (0-5); LYMPHOCYTES 1.4 % (15-50); MCH 25.8 pg (26.0-34.0); MCHC 32.1 g/dL (31.0-37.0); MONOCYTES 6.2 % (2-11); NEUTROPHILS 91.7 % (40-80); RBC 3.37 10x6/uL (4.20-6.10); RDW 23.6 % (11.5-14.5); WBC 8.4 10x3/uL (4.8-10.8)
[2019-01-08 08:16] LABS: MCV 80.4 fL (80.0-100.0); PLATELET COUNT 46 10x3/uL (130-400)
--- NOTE | 2019-01-08 09:00 | NUR ---
PT OBSERVED LYING IN BED WATCHING TV. NO PAIN NOTED AT TIME CALL LIGHT WITHIN REACH BED IN LOWEST POSITION AND LOCKED. PT TAUGHT TO USE CALL LIGHT IF IN NEED OF ASSISTANCE. WILL CONTINUE TO MONITOR
[2019-01-08 09:47] LABS: PLATELET ESTIMATE DECREASED
[2019-01-08 09:49] LABS: ANISOCYTOSIS OCC; HYPOCHROMASIA OCC; ROULEAUX OCC
--- NOTE | 2019-01-08 11:14 | NUR ---
OT NOTE: PT DOING BETTER TODAY. DECREASED EDEMA IN L HAND AND INCREASED MOVEMENT IN UE/LEs. PRACTICED BED MOB TO INCLUDE ROLLING FROM SIDE TO SIDE WITH MAX ASSIST; SUPINE TO SIT WITH MAX ASSIST. TODAY, AFTER POSITIONING PT ON EOB, HE WAS ABLE TO MAINTAIN STATIC SITTING WITHOUT SUPPORT X 5 MIN. OCCASSIONAL REPORTS OF DIZZINESS AND WEAKNESS WHILE SITTING. PERFORMED A/AROM EXS WITH UE/LE; TRUNK STABILITY ACTIVITIES ; GROSS MOTOR ACT TO ASSIST WITH ADLS. VENECIA AUSTIN, OTR/L
--- NOTE | 2019-01-08 11:30 | NUR ---
PT LYING IN BED RESTING. REASSESSMENT PERFORMED. REPOSITIONED PT WITH CALL LIGHT WITHIN REACH. TURNED LIGHT OFF AT PATIENT REQUEST, WILL CONTINUE TO MONITOR
--- NOTE | 2019-01-08 16:46 | NUR ---
RECEIVED PT FROM ICU. PT IS AAO AND BEDFAST. PT IS ON A 1ST STEP OVERLAY. XIAO IN PLACE AND DRAINING URINE. TPN INFUSING @40ML/HR VIA R.SUB CVL. RR EVEN AND UNLABORED ON 4L 02. PT HAD ONE LARGE LOOSE BROWN BM. CLEANED PT, APPLIED NEW LINEN. NO S/S OF DISTRESS NOTED. PT DENIES ANY NEEDS. QUICKSTART COMPLETE. WILL CTM.
--- NOTE | 2019-01-08 19:20 | NUR ---
PT LAYING IN BED. EYES CLOSED. BED LOW AND CALL LIGHT IN REACH. NAME AND DATE PLACED ON BOARD. NO S/S OF DISTRESS. WILL CPOC
--- NOTE | 2019-01-08 23:37 | NUR ---
NIGHT MEDICATIONS GIVEN. LOTION APPLIED TO PT. PT REPOSITIONED. DENIES ANY NEEDS. WILL CPOC
[2019-01-09] VITALS: BP 131/86
--- NOTE | 2019-01-09 00:03 | NUR ---
AQUAPHOR APPLIED FROM HEAD TO TOE. PT NOW SITTING UP IN BED 45 DEGREES. FSBS IS 240 8 UNITS GIVEN AND SNACK PROVIDED. PT COUGHING AT TIMES WHEN EATING. ENCOURAGED TO EAT SMALL BITES WITH SMALL SIPS OF WATER. PT VERBALIZED UNDERSTANDING. NO S/S OF DISTRESS. SCD'S ON BIALTERAL. 1ST STEP OVERLAY NOTED. TPN INFUSING ORDERED WILL CPOC
[2019-01-09 04:00] VITALS: BP 128/84
--- NOTE | 2019-01-09 05:30 | NUR ---
MORNING LABS DRAWN. PT LAYING IN BED WITH EYES CLOSED. NO S/S OF DISTRESS. DENIES ANY NEEDS. STARTED TPN BACK INFUSING AT 40 ORDERED. PT HAS CALL LIGHT IN REACH. BED LOW AND CALL LIGHT IN REACH. WILL CPOC
[2019-01-09 06:16] LABS: ANION GAP 12.6 mmol/L (8-16); CALCIUM 7.2 mg/dL (8.5-10.1); CARBON DIOXIDE 29.4 mmol/L (21.0-32.0); CREATININE - SERUM 2.7 mg/dL (0.6-1.3); MAGNESIUM - SERUM 2.1 mg/dL (1.8-2.4); PHOSPHOROUS 6.3 mg/dL (2.5-4.9)
--- NOTE | 2019-01-09 06:33 | NUR ---
NURSE FLUSHED RIGHT SUBCLAVIN CVL AND FLUSHED LEFT IJ TRIALYSIS. PT GLUCOSE WAS 164 4 UNITS GIVEN ORDERED. PT DENIES ANY NEEDS. NO S/S OF DISTRESS. WILL CPOC
[2019-01-09 06:56] LABS: HEMATOCRIT 27.7 % (42.0-54.0); HEMOGLOBIN 9.3 g/dL (13.5-17.5); MCH 26.1 pg (26.0-34.0); MCHC 33.6 g/dL (31.0-37.0); PLATELET COUNT 52 10x3/uL (130-400); RBC 3.57 10x6/uL (4.20-6.10); RDW 24.1 % (11.5-14.5)
[2019-01-09 07:11] LABS: MCV 77.6 fL (80.0-100.0); WBC 12.4 10x3/uL (4.8-10.8)
[2019-01-09 08:21] VITALS: BP 150/94
[2019-01-09 09:52] LABS: ANISOCYTOSIS OCC; EOSINOPHILS 2 % (0-7); HYPOCHROMASIA OCC; LYMPHOCYTES 4 % (15-50); MONOCYTES 6 % (2-11); NEUTROPHILS 86 % (40-80); PLATELET ESTIMATE DECREASED; POLYCHROMASIA OCC; SMUDGE CELLS OCC
--- NOTE | 2019-01-09 11:29 | MORECARE ---
CASE MANAGEMENT DISCHARGE SUMMARY PATIENT: GUMARO EVANS UNIT: [id number] ADM DATE: 12/29/18 AGE: 63 : 51 SEX: M ROOM/BED: D.2135 AUTHOR: KEITH,DOC PHYSICIAN: REFERRING PHYSICIAN: KEMAL RALPH MD DATE OF SERVICE: 01/09/19 Discharge Plan Patient Name: GUMARO EVANS Facility: [facility]:[place] : 1955 Planned Disposition: Inpatient Rehab Anticipated Discharge Date: 01/09/19 Discharge Date: Expected LOS: 11 Initial Reviewer: [email or web address] Initial Review Date: 12/31/2018 Generated: 01/09/19 12:29 pm DCP- Discharge Planning Updated by [id number]: Amelia Fontaine on 12/31/18 2:[address] Patient Name: GUMARO EVANS Admission Status: Elective Accout number: [id number] Admission Date: 12-29-2018 : 1955 Admission Diagnosis: Attending: KEMAL RALPH Current LOS: 2 Anticipated DC Date: Planned Disposition: Home Primary Insurance: [facility] MEDICARE SOLUTIONS Discharge Planning Comments: CM met with patient's Mother Dasha and daughter Blanche at bedside after explaining CM role and obtaining verbal consent. Patient is currently sedated on vent. Patient lives at home with his mother and plans to return there upon discharge. Dasha states that she recently moved the patient in with her in [place] from [place]. CM discussed availability / needs of home health and medical equipment. Dasha states that the patient has a cane but no other medical equipment. Dasha states he may need home health upon discharge. Patient may require Hemodialysis as an outpatient CM will continue to follow and assist as needed with discharge planning / needs. Switchboard Wirer: Amelia Fontaine DCPIA - Discharge Planning Initial Assessment Updated by [id number]: Amelia Fontaine on 12/31/18 3:47 pm * Is the patient Alert and Oriented? No * How many steps to enter\exit or inside your home? * PCP Faith Paige APN * Pharmacy [facility] currently doesn't have one in [place] * Preadmission Environment Home with Family * ADLs Independent * Equipment Cane * List name and contact numbers for known caregivers / representatives who currently or will assist patient after discharge: Dasha Ellington - mother- [phone], Blanche Aguilar - daughter- [phone] * Verbal permission to speak to the caregivers and representatives has been obtained from the patient. N/A * Community resources currently utilized None * Additional services required to return to the preadmission environment? No * Can the patient safely return to the preadmission environment? Yes * Has this patient been hospitalized within the prior 30 days at any hospital? No Coverage Notice Reviewer: [id number] Rishi Sanders Notice Issued Date-Time: 01/09/2019 11:05 Notice Type: IM Discharge Notice Notice Delivered To: Patient Relationship to Patient: Expander Machine Operator Name: Delivery Method: - Dorie Days: Prior Verbal Notification: Recipient Understood Notice: Recipient Signature: Med Rec Note Co-signed by Attending: Coverage Notice Comment: Last DP export: 12/31/18 3:03 p Patient Name: GUMARO EVANS Page [phone] at 1129 All edits/amendments must be made on the electronic document DICTATION DATE: 01/09/19 1129 HEALTH ECONOMIST: ROBERTO 01/09/19 112 RPT#: [id number] DC DATE: STATUS: ADM IN [facility] [address] [place] [address] END OF REPORT
--- NOTE | 2019-01-09 11:45 | MORECARE ---
CASE MANAGEMENT DISCHARGE SUMMARY PATIENT: GUMARO EVANS UNIT: [id number] ADM DATE: 12/29/18 AGE: 63 : 51 SEX: M ROOM/BED: D.2135 AUTHOR: CAROLINE PARKER PHYSICIAN: REFERRING PHYSICIAN: KEMAL RALPH MD DATE OF SERVICE: 01/09/19 Discharge Plan Patient Name: GUMARO EVANS [facility] [facility] 1955 Planned Disposition: Inpatient Rehab Anticipated Discharge Date: 01/09/19 Discharge Date: Expected LOS: 11 Initial Reviewer: [email or web address] Initial Review Date: 12/31/2018 Generated: 01/09/19 12:44 pm Comments DCP- Discharge Planning Updated by [email or web address]: Karlos Sanders on 01/09/19 10:[address] Patient Name: GUMARO EVANS Encounter No: [id number] : 1955 Primary Insurance: [facility] MEDICARE SOLUTIONS Anticipated DC Date: 01-09-2019 Planned Disposition: Inpatient Rehab External Planned Provider: [facility] DCP follow-up note: CM SPOKE TO NATUROPATHIC DOCTOR SEJAL FONTAINE WHO ADVISED CM THAT PT IS PENDING INSURANCE AUTHORIZATION FOR INPATIENT REHAB AT [place]. CM SPOKE TO FRANCES OF [facility] WHO ADVISED THAT AUTHORIZATION WAS SUBMITTED YESTERDAY TO PT'S INSURANCE COMPANY, THEY ARE WAITING INSURANCE DECISION. CM SPOKE TO PT IN ROOM, PT IS WILLING FOR REHAB AT [place] WITH PLAN TO MOVE IN WITH HIS MOTHER AT DISCHARGE FROM REHAB. IMPORTANT MESSAGE FROM MEDICARE PROVIDED AND EXPLAINED. CM WAITING INSURANCE AUTHORIZATION FOR INPATIENT REHAB AT [facility]. NAIN Gu DCP- Discharge Planning Updated by [email or web address]: Amelia Fontaine on 12/31/18 2:[address] Patient Name: GUMARO EVANS Admission Status: Elective Accout number: [id number] Admission Date: 12-29-2018 : 1955 Admission Diagnosis: Attending: KEMAL RALPH Current LOS: 2 Anticipated DC Date: Planned Disposition: Home Primary Insurance: [facility] MEDICARE SOLUTIONS Discharge Planning Comments: CM met with patient's Mother Dasha and daughter Blanche at bedside after explaining CM role and obtaining verbal consent. Patient is currently sedated on vent. Patient lives at home with his mother and plans to return there upon discharge. Dasha states that she recently moved the patient in with her in [place] from [place]. CM discussed availability / needs of home health and medical equipment. Dasha states that the patient has a cane but no other medical equipment. Dasha states he may need home health upon discharge. Patient may require Hemodialysis as an outpatient CM will continue to follow and assist as needed with discharge planning / needs. Market Researcher: Amelia Fontaine DCPIA - Discharge Planning Initial Assessment Updated by [id number]: Amelia Fontaine on 12/31/18 3:47 pm * Is the patient Alert and Oriented? No * How many steps to enter\exit or inside your home? * PCP Faith Paige APN * Pharmacy [facility] currently doesn't have one in [place] * Preadmission Environment Home with Family * ADLs Independent * Equipment Cane * List name and contact numbers for known caregivers / representatives who currently or will assist patient after discharge: Dasha Ellington - mother- [phone], Blanche Aguilar - daughter- [phone] * Verbal permission to speak to the caregivers and representatives has been obtained from the patient. N/A * Community resources currently utilized None * Additional services required to return to the preadmission environment? No * Can the patient safely return to the preadmission environment? Yes * Has this patient been hospitalized within the prior 30 days at any hospital? No Coverage Notice Reviewer: [id number] - Karlos Sanders Notice Issued Date-Time: 01/09/2019 11:05 Notice Type: IM Discharge Notice Notice Delivered To: Patient Relationship to Patient: Drying Oven Tender Name: Delivery Method: HAND - Hand Delivered Dorie Days: Prior Verbal Notification: Recipient Understood Notice: Yes Recipient Signature: Yes Med Rec Note Co-signed by Attending: Coverage Notice Comment: Last DP export: 01/09/19 10:30 am Patient Name: GUMARO EVANS Page [id number] at 1145 All edits/amendments must be made on the electronic document DICTATION DATE: 01/09/19 1147 FRAME SAMPLE AND PATTERN SUPERVISOR: ROBERTO 01/09/19 1144 RPT#: [id number] DC DATE: STATUS: ADM IN [facility] [address] [place] [address] END OF REPORT
[2019-01-09 11:55] VITALS: BP 133/84
--- NOTE | 2019-01-09 13:15 | MORECARE ---
CASE MANAGEMENT DISCHARGE SUMMARY PATIENT: GUMARO EVANS UNIT: [id number] ADM DATE: 12/29/18 AGE: 63 : 51 SEX: M ROOM/BED: D.2135 AUTHOR: KEITH,DOC PHYSICIAN: REFERRING PHYSICIAN: KEMAL RALPH MD DATE OF SERVICE: 01/09/19 Discharge Plan Patient Name: GUMARO EVANS Facility: [facility]:[place] : 1955 Planned Disposition: Inpatient Rehab Anticipated Discharge Date: 01/09/19 Discharge Date: Expected LOS: 11 Initial Reviewer: [email or web address] Initial Review Date: 12/31/2018 Generated: 01/09/19 2:14 pm Comments DCP- Discharge Planning Updated by [email or web address]: Karlos Sanders on 01/09/19 12:[address] Patient Name: GUMARO EVANS Encounter No: [id number] : 1955 Primary Insurance: [facility] MEDICARE SOLUTIONS Anticipated DC Date: 01-09-2019 Planned Disposition: Inpatient Rehab External Planned Provider: [facility] DCP follow-up note: CM SPOKE TO [facility]ANCES OF [facility], INSURANCE AUTHORIZATION FOR REHAB RECEIVED. CM NOTIFIED ALBA ADAM. WHEN DISCHARGED, NOTIFY [facility] WHO WILL THEN CONTACT MED 2 NURSE WITH ROOM NUMBER WHEN READY TO ACCEPT PT AND NURSE REPORT. Karlos Sanders, CASE MANAGEMENT DCP- Discharge Planning Updated by [email or web address]: Karlos Sanders on 01/09/19 10:[address] Patient Name: GUMARO EVANS Encounter No: [id number] : 1955 Primary Insurance: [facility] MEDICARE SOLUTIONS Anticipated DC Date: 01-09-2019 Planned Disposition: Inpatient Rehab External Planned Provider: [facility] DCP follow-up note: CM SPOKE TO BUILDING COMPONENTS DESIGNER SEJAL FONTAINE WHO ADVISED CM THAT PT IS PENDING INSURANCE AUTHORIZATION FOR INPATIENT REHAB AT [place]. CM SPOKE TO FRANCES OF [facility] WHO ADVISED THAT AUTHORIZATION WAS SUBMITTED YESTERDAY TO PT'S INSURANCE COMPANY, THEY ARE WAITING INSURANCE DECISION. CM SPOKE TO PT IN ROOM, PT IS WILLING FOR REHAB AT [place] WITH PLAN TO MOVE IN WITH HIS MOTHER AT DISCHARGE FROM REHAB. IMPORTANT MESSAGE FROM MEDICARE PROVIDED AND EXPLAINED. CM WAITING INSURANCE AUTHORIZATION FOR INPATIENT REHAB AT [facility]. Karlos Sanders, CASE MANAGEMENT DCP- Discharge Planning Updated by [id number]: Amelia Fontaine on 12/31/18 2:[address] Patient Name: GUMARO EVANS Admission Status: Elective Accout number: [id number] Admission Date: 12-29-2018 : 1955 Admission Diagnosis: Attending: KEMAL RALPH Current LOS: 2 Anticipated DC Date: Planned Disposition: Home Primary Insurance: [facility] MEDICARE SOLUTIONS Discharge Planning Comments: CM met with patient's Mother Dasha and daughter Blanche at bedside after explaining CM role and obtaining verbal consent. Patient is currently sedated on vent. Patient lives at home with his mother and plans to return there upon discharge. Dasha states that she recently moved the patient in with her in [place] from [place]. CM discussed availability / needs of home health and medical equipment. Dasha states that the patient has a cane but no other medical equipment. Dasha states he may need home health upon discharge. Patient may require Hemodialysis as an outpatient CM will continue to follow and assist as needed with discharge planning / needs. Software Qa Manager: Amelia Fontaine DCPIA - Discharge Planning Initial Assessment Updated by [id number]: Amelia Fontaine on 12/31/18 3:47 pm * Is the patient Alert and Oriented? No * How many steps to enter\exit or inside your home? * PCP Faith Paige APN * Pharmacy [facility] currently doesn't have one in [place] * Preadmission Environment Home with Family * ADLs Independent * Equipment Cane * List name and contact numbers for known caregivers / representatives who currently or will assist patient after discharge: Dasha Ellington - mother- [phone], Blanche Aguilar - daughter- [phone] * Verbal permission to speak to the caregivers and representatives has been obtained from the patient. N/A * Community resources currently utilized None * Additional services required to return to the preadmission environment? No * Can the patient safely return to the preadmission environment? Yes * Has this patient been hospitalized within the prior 30 days at any hospital? No Coverage Notice Reviewer: [id number] - Karlos Elizondowell Notice Issued Date-Time: 01/09/2019 11:05 Notice Type: IM Discharge Notice Notice Delivered To: Patient Relationship to Patient: Proposal Analyst Name: Delivery Method: HAND - Hand Delivered Dorie Days: Prior Verbal Notification: Recipient Understood Notice: Yes Recipient Signature: Yes Med Rec Note Co-signed by Attending: Coverage Notice Comment: Last DP export: 01/09/19 10:45 am Patient Name: GUMARO EVANS Page [phone] at 1315 All edits/amendments must be made on the electronic document DICTATION DATE: 01/09/19 1314 PHP LAMP DEVELOPER: ROBERTO 01/09/19 1314 RPT#: [id number] DC DATE: STATUS: ADM IN [facility] [address] [place] [address] END OF REPORT
--- NOTE | 2019-01-09 14:17 | NUR ---
Recieved a call from Micha Hoffman at [facility], this patient has been approved for acute inpatient rehab when medically stable. Visited with the patient who is agreeable to this plan when stronger. Auth # [id number]. Clinical updates will be needed 7 days after admit date to [facility] # [phone] or . Discussed at length with the CM Kermit Sanders. Harini Uribe RN Clinical Liaison, Rehab
--- NOTE | 2019-01-09 14:21 | NUR ---
OT NOTE: PT PERFORMED VERY WELL TODAY. ATTEMPTED TO WASH FACE AND HANDS WITH WASHCLOTH, HOWEVER, DUE TO EDEMA AND WEAKNESS IN B HANDS, HE WAS UNABLE TO DO ADEQUATE JOB. BED MOB WITH MAX ASSIST FOR SUPINE TO SIT; UE AROM EXS TO INCLUDE ALL JOINTS. EDUCATED PT ON IMPORTANCE OF PERFORMING THROUGHOUT THE DAY. STATIC SITTING ON EOB WITHOUT SUPPORT FOR APPROX 2 MIN BEFORE FATIGUING. AT THIS TIME, REQUIRED MIN/MOD ASSIST SECONDARY TO TRUNK WEAKNESS. ATTEMPTED SIT TO STAND WITH MAX ASSIST X 2 AND USE OF WALKER. PT ABLE TO STAND AND BEAR WT THROUGH LES FOR APPROX 1 MIN. BACK TO BED WITH MAX ASSIST. PT DOING MUCH BETTER TODAY. VENECIA AUSTIN, OTR/L
[2019-01-09 16:24] VITALS: BP 177/99
--- NOTE | 2019-01-09 16:35 | NUR ---
OT NOTE: PT COMPLETED BED MOB WITH MAX A. PT COMPLETED SIT TO STAND WITH MAX A. PT ORAL HYGIENE WITIH CASSIDY Harris. THANK YOU, BONY MCKEON
--- NOTE | 2019-01-09 19:10 | NUR ---
BED SIDE REPORT RECEIVED. PT IN DIALYSIS AT THIS TIME, NAME AND DATE PLACED ON BOARD. WILL UPDATE ONCE DIALYSIS NURSE CALLS AND PT IS BACK INTO ROOM. WILL CPOC
--- NOTE | 2019-01-09 20:40 | NUR ---
PT ARRIVED FROM DIALYSIS. REPORTED 3L OFF AND PT TOLERATED WELL. PT NOW IN ROOM, PLACED ON 3L O2 NC. HEATED UP DINNER TRAY AND ASSISTED PT WITH EATING. WASHED HANDS AND FACE. PT HAS CALL LIGHT IN REACH. WILL CPOC
--- NOTE | 2019-01-09 21:02 | NUR ---
MAX ASSIST ON FEEDING. SMALL BITES WITH SMALL SIPS OF THICKEND WATER IN BETWEEN. PT COUGHED AFTER EATING THE CORN WHICH HAD CHUNCKS OF CORN IN IT. PT ATE LESS THAN 10% THAN ASKED ABOUT A BREAK. TPN INFUSING AT 40 BAG EMPTY. STARTED A NEW BAG WITH NEW TUBING. FLUSHED ALL LUMENS IN RIGHT SUBCLAVIN CVL. PT HAS NO S/S OF DISTRESS AT THIS TIME CALL LIGHT IN REACH. WILL CPOC
--- NOTE | 2019-01-09 21:05 | NUR ---
PT TPN IS DISCONTINUED IN EMAR. DID NOT START NEW BAG, LIPIDS STILL INFUSING ORDERED. WILL CPOC
[2019-01-10] VITALS: BP 145/83
--- NOTE | 2019-01-10 01:27 | NUR ---
PT LAYING IN BED WITH EYES CLOSED. MOUTH OPEN. RESP EVEN AND UNLABORED. 3L O2 NC. PT HAS NO S/S OF DISTRESS. BED LOW AND CALL LIGHT IN REACH. WILL CPOC
[2019-01-10 04:30] VITALS: BP 139/77
--- NOTE | 2019-01-10 06:50 | NUR ---
4 UNITS GIVEN TO RIGHT ARM FOR FSBS OF 178 PT WOKE UP TALKING ABOUT BEING READY TO GO HOME. SPOKE WITH PT ABOUT THE PLAN OF CARE. PT VERBALIZED UNDERSTANDING. PUT A MOISTURE BARRIER ON SORE THAT IS UNDER NOSE FROM OXYGEN TUBING AND GAVE PT A FEW SIPS OF WATER TO DRINK PT DENIES ANY OTHER NEEDS. WILL CPOC
[2019-01-10 08:05] LABS: ANION GAP 13.5 mmol/L (8-16); CALCIUM 7.5 mg/dL (8.5-10.1); CARBON DIOXIDE 29.2 mmol/L (21.0-32.0); POTASSIUM - SERUM 3.7 mmol/L (3.5-5.1)
[2019-01-10 08:06] LABS: PHOSPHOROUS 4.2 mg/dL (2.5-4.9)
[2019-01-10 08:07] LABS: CREATININE - SERUM 1.9 mg/dL (0.6-1.3)
[2019-01-10 08:21] LABS: BASOPHILS 0.1 % (0-2); EOSINOPHILS 0 % (0-7); HEMATOCRIT 27.3 % (42.0-54.0); IMMATURE GRANULOCYTES 0.6 % (0-5); LYMPHOCYTES 4.9 % (15-50); MCH 26.2 pg (26.0-34.0); MONOCYTES 5.8 % (2-11); NEUTROPHILS 88.6 % (40-80); PLATELET COUNT 56 10x3/uL (130-400); RBC 3.43 10x6/uL (4.20-6.10); RDW 25.2 % (11.5-14.5); WBC 12.4 10x3/uL (4.8-10.8)
[2019-01-10 08:42] LABS: MCV 79.6 fL (80.0-100.0)
[2019-01-10 08:59] VITALS: BP 147/78
--- NOTE | 2019-01-10 09:06 | NUR ---
RECIEVED REPORT. PATIENT IS RESTING QUIETLY ON HIS BACK AT THIS TIME. DENIES ANY NEEDS.
--- NOTE | 2019-01-10 09:50 | MORECARE ---
CASE MANAGEMENT DISCHARGE SUMMARY PATIENT: GUMARO EVANS UNIT: [id number] ADM DATE: 12/29/18 AGE: 63 : 53 SEX: M ROOM/BED: D.2135 AUTHOR: CAROLINE PARKER PHYSICIAN: REFERRING PHYSICIAN: KEMAL RALPH MD DATE OF SERVICE: 01/10/19 Discharge Plan Patient Name: GUMARO EVANS Facility: [facility]:[place] : 1955 Planned Disposition: Inpatient Rehab Anticipated Discharge Date: 01/09/19 Discharge Date: Expected LOS: 11 Initial Reviewer: [id number] Initial Review Date: 12/31/2018 Generated: 01/10/19 10:50 am Comments DCP- Discharge Planning Updated by [id number]: Karlos Sanders on 01/09/19 12:[address] Patient Name: GUMARO EVANS Encounter No: [id number] : 1955 Primary Insurance: [facility] MEDICARE SOLUTIONS Anticipated DC Date: 01-09-2019 Planned Disposition: Inpatient Rehab External Planned Provider: [facility] DCP follow-up note: CM SPOKE TO [facility], INSURANCE AUTHORIZATION FOR REHAB RECEIVED. CM NOTIFIED ALBA ADAM. WHEN DISCHARGED, NOTIFY [facility] WHO WILL THEN CONTACT MED 2 NURSE WITH ROOM NUMBER WHEN READY TO ACCEPT PT AND NURSE REPORT. Karlos Sanders, CASE MANAGEMENT DCP- Discharge Planning Updated by [id number]: Karlos Sanders on 01/09/19 10:[address] Patient Name: GUMARO EVANS Encounter No: [id number] : 1955 Primary Insurance: [facility] MEDICARE SOLUTIONS Anticipated DC Date: 01-09-2019 Planned Disposition: Inpatient Rehab External Planned Provider: [facility] DCP follow-up note: CM SPOKE TO SAFETY ADMINISTRATOR SEJAL FONTAINE WHO ADVISED CM THAT PT IS PENDING INSURANCE AUTHORIZATION FOR INPATIENT REHAB AT [facility]. CM SPOKE TO [facility] WHO ADVISED THAT AUTHORIZATION WAS SUBMITTED YESTERDAY TO PT'S INSURANCE COMPANY, THEY ARE WAITING INSURANCE DECISION. CM SPOKE TO PT IN ROOM, PT IS WILLING FOR REHAB AT [facility] WITH PLAN TO MOVE IN WITH HIS MOTHER AT DISCHARGE FROM REHAB. IMPORTANT MESSAGE FROM MEDICARE PROVIDED AND EXPLAINED. CM WAITING INSURANCE AUTHORIZATION FOR INPATIENT REHAB AT [facility]. Karlos Sanders, CASE MANAGEMENT DCP- Discharge Planning Updated by [id number]: Amelia Fontaine on 12/31/18 2:[address] Patient Name: GUMARO EVANS Admission Status: Elective Accout number: [id number] Admission Date: 12-29-2018 : 1955 Admission Diagnosis: Attending: KEMAL RALPH Current LOS: 2 Anticipated DC Date: Planned Disposition: Home Primary Insurance: [facility] MEDICARE SOLUTIONS Discharge Planning Comments: CM met with patient's Mother Dasha and daughter Blanche at bedside after explaining CM role and obtaining verbal consent. Patient is currently sedated on vent. Patient lives at home with his mother and plans to return there upon discharge. Dasha states that she recently moved the patient in with her in [place] from [place]. CM discussed availability / needs of home health and medical equipment. Dasha states that the patient has a cane but no other medical equipment. Dasha states he may need home health upon discharge. Patient may require Hemodialysis as an outpatient CM will continue to follow and assist as needed with discharge planning / needs. Hand Fabric Cutter: Amelia Fontaine DCPIA - Discharge Planning Initial Assessment Updated by [id number]: Amelia Fontaine on 12/31/18 3:47 pm * Is the patient Alert and Oriented? No * How many steps to enter\exit or inside your home? * PCP Faith Paige APN * Pharmacy [facility] currently doesn't have one in [place] * Preadmission Environment Home with Family * ADLs Independent * Equipment Cane * List name and contact numbers for known caregivers / representatives who currently or will assist patient after discharge: Dasha Ellington - mother- [phone], Blanche Aguilar - daughter- [phone] * Verbal permission to speak to the caregivers and representatives has been obtained from the patient. N/A * Community resources currently utilized None * Additional services required to return to the preadmission environment? No * Can the patient safely return to the preadmission environment? Yes * Has this patient been hospitalized within the prior 30 days at any hospital? No Coverage Notice Reviewer: [id number] - Karlos Elizondowell Notice Issued Date-Time: 01/09/2019 11:05 Notice Type: IM Discharge Notice Notice Delivered To: Patient Relationship to Patient: Egg Smeller Name: Delivery Method: HAND - Hand Delivered Dorie Days: Prior Verbal Notification: Recipient Understood Notice: Yes Recipient Signature: Yes Med Rec Note Co-signed by Attending: Coverage Notice Comment: Last DP export: 01/09/19 12:15 pm Patient Name: GUMARO EVANS Page [phone] at 0950 All edits/amendments must be made on the electronic document DICTATION DATE: 01/10/19949 SCANNING SUPERVISOR: ROBERTO 01/10/1952 RPT#: [id number] DC DATE: STATUS: ADM IN [facility] [address] [place] [address] END OF REPORT
--- NOTE | 2019-01-10 12:41 | NUR ---
OT NOTE: PT CONTINUES TO PROGRESS DAILY. BED MOB WITH MOD ASSIST BUT PT ABLE TO ASSIST MORE WITH ROLLING TO SIDE AND PUSHING UP WITH R ARM. STATIC SITTING WITHOUT SUPPORT TODAY. SIT TO STAND WITH MOD ASSIST X 2; ATTEMPTED TO SIDE STEP A FEW SMALL STEPS. REPORTS THAT HES SO WEAK THAT HE CANT MOVE HIS LEGS. PERFORMED SIT TO STAND X 3 TRIALS AND EACH TIME, PT ABLE TO STAND AT LEAST 1 MIN. PT UNAWARE THAT HE HAD A BM. CLEANED PT AND CHANGED LINENS. CONTINUES TO HAVE DIFFICULTY WITH GROSS/FINE MOTOR MOVEMENTS DUE TO EDEMA IN HANDS. PERFORMED UE AROM EXS AND EDUCATED PT AGAIN ON IMPORTANCE OF PERFORMING THESE EXS WHILE IN BED. PT CONFIRMED UNDERSTANDING. VENECIA AUSTIN, OTR/L
--- NOTE | 2019-01-10 15:25 | NUR ---
Nutrition consult: Spoke with Gina Rivas APN re: nutrition support Agreed that Dobhoff tube placement and TF would be best for pts nutrition needs at this time. Order for tube placement and Osmolite 1.0 to start @ 15 ml with increase to goal rate of 50 ml/hr was placed in chart. RDN following.
--- NOTE | 2019-01-10 15:48 | NUR ---
ACKNOWLEDGED ORDER FOR DOPOFF PLACEMENT. CALLED ICU NURSE TO SEND A NURSE OVER TO PLACE THAT.
[2019-01-10 16:17] VITALS: BP 143/85
--- NOTE | 2019-01-10 16:24 | NUR ---
DOBHOFF PLACED TO R NARE AFTER EXPLANING PROCEDURE TO PT. 8FR AND 61CM SECURED BY NGT ATTACHMENT DEVICE. KUB ORDERED FOR PLACEMENT. STYLETTE IN PLACE AWAITING XR. PT ILAN WELL.
--- NOTE | 2019-01-10 16:42 | NUR ---
AWAITING XRAY, TO VERIFY PLACEMENT OF DOPOFF.
--- NOTE | 2019-01-10 17:03 | NUR ---
OT NOTE: PT COMPLETED SUPINE TO SIT WITH MAX A. PT COMPLETED SIT TO STAND WITH MOD A. PT COMPLETED POSITIONING IN BED WITH MAX A. PT COMPLETED ORAL HYGIENE WITH MIN A. PT IS IMPROVING AND IS MOTIVATED. THANK YOU, BONY MCKEON
--- NOTE | 2019-01-10 18:15 | NUR ---
CALLED ICU TO ASK IF A ICU NURSE CAN COME REMOVE THE STILETT BECASUE THE NURSE THAT PLACED THE DOPOFF WENT HOME. THE ICU NURSE I SPOKE TO WAS SUPRISED THAT I COULD NOT REMOVE THE STYLETTE. HOWEVER, I WAS TOLD DIRECTLY BY MY ROLL SHOP SUPERVISOR NOT TO REMOVE IT. ICU NURSE INFORMED ME THAT IT WILL BE AFTER SHIFT CHANGE BEFORE THEY CAN COME REMOVE IT.
--- NOTE | 2019-01-10 18:49 | NUR ---
DOBPOFF IS A 8 MONTENEGRIN TAPE IS MARKED AT 61.
--- NOTE | 2019-01-10 19:17 | NUR ---
BEDSIDE REPORT RECEIVED FROM DAY SHIFT. PT CARE ASSUMED. PT LYING IN BED WITH EYES CLOSED, RESPIRATIONS EVEN AND NONLABORED, NO S/S OF DISTRESS, EASILY AROUSED BY VOICE. INTRODUCED SELF AND WROTE NAME ON BOARD. DENIES PAIN OR ANY OTHER NEEDS AT THIS TIME. BED IN LOWEST POSITION, SR X3, CALL LIGHT WITHIN REACH. WILL CONTINUE TO MONITOR.
[2019-01-10 20:00] VITALS: BP 134/88
[2019-01-11 00:30] VITALS: BP 136/84
[2019-01-11 04:30] VITALS: BP 122/81
[2019-01-11 06:59] LABS: HEMATOCRIT 26.6 % (42.0-54.0); HEMOGLOBIN 8.9 g/dL (13.5-17.5); MCH 26.4 pg (26.0-34.0); MCHC 33.5 g/dL (31.0-37.0); MCV 78.9 fL (80.0-100.0); PLATELET COUNT 54 10x3/uL (130-400); RBC 3.37 10x6/uL (4.20-6.10); RDW 25.9 % (11.5-14.5); WBC 9.4 10x3/uL (4.8-10.8)
[2019-01-11 07:18] LABS: ANION GAP 14.6 mmol/L (8-16); CALCIUM 7.8 mg/dL (8.5-10.1); CARBON DIOXIDE 27.3 mmol/L (21.0-32.0); CREATININE - SERUM 2.1 mg/dL (0.6-1.3); PHOSPHOROUS 4.7 mg/dL (2.5-4.9); POTASSIUM - SERUM 3.9 mmol/L (3.5-5.1)
--- NOTE | 2019-01-11 07:51 | NUR ---
PATIENT IS RESTING ON HIS BACK IN BED. RECIEVED REPORT. HE IS RECIEVING OSMOLITE THROUGH THE DOBPOFF IN HIS RIGHT NARE . A 8 MALIAN THAT WAS PLACED YESTERDAY BY ICU NURSE. XRAY CONFERMED PLACEMENT, AND THE MED 2 NURSE REMOVED THE STYLETT AND STARTED FEEDINGS ORDERED. PATIENT IS TOLERATING WELL. HE DENIES ANY NEEDS AT THIS TIME.
[2019-01-11 08:43] VITALS: BP 111/78
[2019-01-11 09:17] LABS: BASOPHILS 1 % (0-2); LYMPHOCYTES 8 % (15-50); MONOCYTES 3 % (2-11); NEUTROPHILS 87 % (40-80)
[2019-01-11 09:18] LABS: PLATELET ESTIMATE DECREASED; TARGET CELLS 2+
[2019-01-11 09:19] LABS: ANISOCYTOSIS 2+; POIKILOCYTOSIS 1+
--- NOTE | 2019-01-11 12:53 | NUR ---
Rehab Note- Reviewed medical record, looking at possible BM biopsy & possible PEG placement- will need to be done prior to inpatient acute rehab admit. Will continue to follow at this time. Thank you for this referral! Lucero Bah RN Clinical Liaison, [facility] Rehab
--- NOTE | 2019-01-11 19:15 | NUR ---
REPORT RECEIVED FROM DAY SHIFT. PT CARE ASSUMED. WROTE NAME ON BOARD, PT AAOX4, SITTING UP IN BED. REQUESTED FACE WASHED THIS PM. DENIES PAIN AND OTHER NEEDS AT THIS TIME. BED IN LOWEST POSITION, SR X3, CALL LIGHT WITHIN REACH. WILL CONTINUE TO MONITOR.
[2019-01-11 20:00] VITALS: BP 136/96
[2019-01-12] VITALS: BP 129/88
[2019-01-12 04:30] VITALS: BP 141/91
[2019-01-12 04:34] LABS: BASOPHILS 0.1 % (0-2); EOSINOPHILS 0 % (0-7); HEMATOCRIT 27.3 % (42.0-54.0); HEMOGLOBIN 8.9 g/dL (13.5-17.5); IMMATURE GRANULOCYTES 0.4 % (0-5); LYMPHOCYTES 3.1 % (15-50); MCH 26.4 pg (26.0-34.0); MCHC 32.6 g/dL (31.0-37.0); MONOCYTES 2.9 % (2-11); NEUTROPHILS 93.5 % (40-80); PLATELET COUNT 50 10x3/uL (130-400); RBC 3.37 10x6/uL (4.20-6.10); RDW 26.7 % (11.5-14.5); WBC 10.3 10x3/uL (4.8-10.8)
[2019-01-12 04:46] LABS: ANION GAP 12.2 mmol/L (8-16); CALCIUM 7.8 mg/dL (8.5-10.1); CARBON DIOXIDE 29.4 mmol/L (21.0-32.0); CREATININE - SERUM 2.2 mg/dL (0.6-1.3); PHOSPHOROUS 4.2 mg/dL (2.5-4.9); POTASSIUM - SERUM 3.6 mmol/L (3.5-5.1)
--- NOTE | 2019-01-12 05:27 | NUR ---
FSBS 217, 8 UNITS INSULIN ADMINISTERED, PER SLIDING SCALE.
--- NOTE | 2019-01-12 05:30 | NUR ---
PT TOLERATING WELL FEEDING RATE OF 35 ML/HR. INCREASED RATE TO 45 ML/HR, PER ORDER. BED BATH ADMINISTERED, PER PRASHANT BURROUGHS CNA, AQUAPHOR APPLIED. PT TOLERATED WELL. BED IN LOWEST POSITION, SR X3, CALL LIGHT WITHIN REACH. WILL CONTINUE TO MONITOR.
--- NOTE | 2019-01-12 07:15 | NUR ---
INITIAL ROUNDING, BEDSIDE SHIFT REPORT COMPLETED, WHITE BOARD UPDATED. PATIENT IS SLEEPING SOUNDLY, HOB AT 40 DEGREES, NG TUBE IN PLACE AND TUBE FEEDING INFUSING. NINOSKA TO BSG. CALL LIGHT IN REACH
[2019-01-12 09:06] VITALS: BP 154/92
[2019-01-12 11:43] VITALS: BP 171/98
--- NOTE | 2019-01-12 19:44 | NUR ---
PT RESTING IN BED WITH EYES CLOSED RR EVEN AND UNLABORED. NO S/S OF DISTRESS AT THIS TIME. BED LOW CALL LIGHT WITHIN REACH. WILL CONTINUE TO MONITOR.
[2019-01-12 20:00] VITALS: BP 170/103
[2019-01-13 00:14] VITALS: BP 159/101
--- NOTE | 2019-01-13 02:58 | NUR ---
I have reviewed this patient and I concur with the Shift Assessment completed by the Licensed Practical Nurse today this shift.
[2019-01-13 03:52] LABS: BASOPHILS 0.1 % (0-2); EOSINOPHILS 0.2 % (0-7); HEMATOCRIT 27.5 % (42.0-54.0); HEMOGLOBIN 9.1 g/dL (13.5-17.5); IMMATURE GRANULOCYTES 0.3 % (0-5); LYMPHOCYTES 3.8 % (15-50); MCH 26.4 pg (26.0-34.0); MCHC 33.1 g/dL (31.0-37.0); MCV 79.7 fL (80.0-100.0); MONOCYTES 7.4 % (2-11); NEUTROPHILS 88.2 % (40-80); PLATELET COUNT 52 10x3/uL (130-400); RBC 3.45 10x6/uL (4.20-6.10); RDW 27.3 % (11.5-14.5); WBC 12.6 10x3/uL (4.8-10.8)
[2019-01-13 04:07] LABS: ALBUMIN 4.2 g/dL (3.4-5.0); BILIRUBIN - TOTAL 3.64 mg/dL (0.2-1.3); CALCIUM 8.1 mg/dL (8.5-10.1); CARBON DIOXIDE 27.4 mmol/L (21.0-32.0); CREATININE - SERUM 2.1 mg/dL (0.6-1.3); POTASSIUM - SERUM 3.4 mmol/L (3.5-5.1); PROTEIN - SERUM 6.1 g/dL (6.4-8.2)
[2019-01-13 04:15] VITALS: BP 154/100
--- NOTE | 2019-01-13 04:22 | NUR ---
TRIALYSIS DRESSING CHANGED USING STERIL TECHNIQUE. NO COMPLAINTS OF PAIN OR FURTHER NEEDS FROM PT. BED LOW CALL LIGHT WITHIN REACH. WILL CONTINUE TO MONITOR.
[2019-01-13 04:29] LABS: PLATELET ESTIMATE DECREASED
[2019-01-13 07:33] VITALS: BP 165/99
--- NOTE | 2019-01-13 07:45 | NUR ---
INITIAL ROUNDING, BEDSIDE SHIFT REPORTS COMPLETE. WHITE BOARD UPDATED. FEEDING INCREASED TO 50 ML/HR ORDERED. HOB AT 35 DEGREES, DUBHOFF IN PLACE, SECURED WITH TAPE. SCD'S TURNED ON AT THIS TIME. O2 VIA NC IN PLACE. CALL LIGTH IN REACH. PHONE IN REACH
--- NOTE | 2019-01-13 08:21 | NUR ---
CLEANED THE PATIENT AFTER A LOOSE BM, SCD'S ON, BREAKFAST TRAY SET UP, CALL LIGHT AND PHONE IN REACH, FEEDING RESTARTED. POSITIONED PATIENT FOR SAFETY WHILE EATING,
--- NOTE | 2019-01-13 09:55 | NUR ---
THE DUBHOFF TUBE IS CLOGGED, AND UNABLE TO PASS FEEDING THROUGH. CHARGE NURSE SIVA NOTIFIED, SHE STATED IT NEEDS TO BE EXCHANGED AND AN ICU NURSE HAS TO COME DO IT. ICU CALLED AT THIS TIME
[2019-01-13 11:16] VITALS: BP 143/86
[2019-01-13 16:07] VITALS: BP 152/78
--- NOTE | 2019-01-13 17:25 | NUR ---
OT NOTE: PT COMPLETED BED MOB WITH MOD/MIN A. PT COMPLETED TRANSFER WITH MOD/MAX. PT COMPLETED SELF FEEDING TASK WITH SET UP. PT [id number] BUE AROM AX. THANK YOU, BONY MCKEON
--- NOTE | 2019-01-13 19:00 | NUR ---
PATIENT LAYING IN BED, HOB AT 90 DEGREES. PATIENT HAS NO COMPLAINTS AT THIS TIME. NO DISTRESS NOTED.
[2019-01-13 20:00] VITALS: BP 164/117
[2019-01-13 20:06] LABS: INR 1.43 (0.85-1.17); PROTIME 16.8 SECONDS (11.6-15.0)
--- NOTE | 2019-01-13 22:09 | NUR ---
PATIENT'S TRIALYSIS DRESSING CHANGED PER PROTOCOL. URINE SPECIMAN COLLECTED.
[2019-01-13 23:00] LABS: APPEARANCE HAZY (CLEAR); BILIRUBIN NEGATIVE (NEGATIVE); COLOR BROWN (YELLOW); GLUCOSE NEGATIVE (NEGATIVE); KETONE NEGATIVE (NEGATIVE); NITRITE NEGATIVE (NEGATIVE); PROTEIN 1+ mg/dL (NEGATIVE); UROBILINOGEN NORMAL (NORMAL)
[2019-01-13 23:01] LABS: RED CELLS - URINE >50 /hpf (0-5)
[2019-01-13 23:02] LABS: BACTERIA FEW /hpf (NONE SEEN)
[2019-01-14 00:02] VITALS: BP 166/106
--- NOTE | 2019-01-14 02:49 | NUR ---
PATIENT THROWING UP TUBE FEEDING. TUBE FEEDING STOPPED AT THIS TIME AND OTILIA WILLIS PAGED. NEW ORDERS FOR RESIDUAL CHECKS Q6HRS AND TO HOLD TUBE FEEDING AT THIS TIME FOR 4 HOURS AND CHECK RESIDUAL.
--- NOTE | 2019-01-14 03:30 | NUR ---
I have reviewed this patient and I concur with the Shift Assessment completed by the Licensed Practical Nurse today this shift.
[2019-01-14 04:08] VITALS: BP 172/108
--- NOTE | 2019-01-14 07:22 | NUR ---
REPORT RECIEVED. UPON ENTERING ROOM, NG TUBE LEAKING OUT OF NARE. FEEDING STOPPED. SPOKE WITH REY BAY. KUB ORDERED TO CHECK PLACEMENT. WILL CONTINUE TO MONITOR. RR EVEN AND UNLABORED. SITTING UP 90 DEGREES. NO DISTRESS NOTED OTHERWISE. 2.5L NC.
[2019-01-14 07:48] LABS: APTT 27.3 SECONDS (22.8-39.4); INR 1.4 (0.85-1.17); PROTIME 16.6 SECONDS (11.6-15.0)
[2019-01-14 07:55] VITALS: BP 119/52
[2019-01-14 08:15] LABS: ALBUMIN 4.4 g/dL (3.4-5.0); ANION GAP 19.2 mmol/L (8-16); BILIRUBIN - TOTAL 4.34 mg/dL (0.2-1.3); CALCIUM 8.7 mg/dL (8.5-10.1); CARBON DIOXIDE 24.4 mmol/L (21.0-32.0); POTASSIUM - SERUM 3.6 mmol/L (3.5-5.1); PROTEIN - SERUM 6.5 g/dL (6.4-8.2)
[2019-01-14 09:09] LABS: HEMATOCRIT 29.6 % (42.0-54.0); HEMOGLOBIN 9.7 g/dL (13.5-17.5); MCH 26.9 pg (26.0-34.0); MCHC 32.8 g/dL (31.0-37.0); RBC 3.61 10x6/uL (4.20-6.10); WBC 13.8 10x3/uL (4.8-10.8)
[2019-01-14 09:10] LABS: PLATELET COUNT 49 10x3/uL (130-400)
--- NOTE | 2019-01-14 10:00 | NUR ---
NG TUBE DISCONNECTED. WHEN ATTEMPTING TO FLUSH, PT STARTED COUGHING UP FEED THAT WAS IN THE LINE. PT SUCTIONED AND LIFTED HOB FROM 45 DEGREES TO 90. AIRWAY CLEARED. PT TRASPORTED TO RADIOLOGY WITH HOB AT 90 DEGREES AND OXYGEN ATTACHED.
--- NOTE | 2019-01-14 10:14 | NUR ---
IR- PICKED PT UP FOR BMB. DUBHOFF TUBE NOT IN PLACE. NURSE MED II FLUSH AND FLUID CAME OUT MOUTH. I D'C DUBHOFF TUBE ONLY 12CM IN PT NOSE.
[2019-01-14 10:25] LABS: LYMPHOCYTES 8 % (15-50); MONOCYTES 6 % (2-11); NEUTROPHILS 84 % (40-80); PLATELET ESTIMATE DECREASED
[2019-01-14 10:26] LABS: ANISOCYTOSIS OCC; HYPOCHROMASIA OCC
--- NOTE | 2019-01-14 10:50 | NUR ---
PT RETURNED FROM RADIOLOGY. NG TUBE WAS REMOVED IN RADIOLOGY. STATED JEANETTE WOULD BE BY LATER TO REINSERT
--- NOTE | 2019-01-14 11:53 | NUR ---
SPOKE WITH MEHREEN FROM ICU ABOUT REINSERTING DOBBHOFF. STATED THIS WAS THE 3RD TIME IT HAS BEEN INSERTED. CALLED AND SPOKE WITH REY BAY. SHE SAID TO CONTINUE WITH REINSERTION. WILL CALL ICU AGAIN.
--- NOTE | 2019-01-14 12:00 | NUR ---
SPOKE WITH ANGELINA VERDE AND DR. RALPH. HE STATED TO HOLD REINSERTION OF DOBBHOFF AND SEE IF PT CAN TOLERATE THICKENED LIQUIDS AND PUREE DIET.
[2019-01-14 12:25] VITALS: BP 138/69
[2019-01-14 14:46] VITALS: BP 126/55
--- NOTE | 2019-01-14 14:47 | NUR ---
Nutrition Follow-up: Dubhoff tube removed 2/[address], pt able to tolerate mechanical soft diet with nectar thick liquids without any overt s/s aspiration. Per chart, tube reinsertion held to determine if pt can tolerate PO intake. Diet: Renal ADA; mechanical soft with ground meat/gravy with nectar thick liquids No new wt Labs reviewed Meds reviewed Concerned that pt will be unable to meet nutritional needs with PO intake. Will monitor PO tolerance/intake.
--- NOTE | 2019-01-14 16:08 | NUR ---
OT NOTE: PT REQUIRED TOTAL A WITH BATHING TASKS AND HYGIENE TASKS. PT COMPLETED BED MOB WITH MAX A. PT NOT FEELING WELL. MD REQUESTED THAT NURSING CHECK BLOOD SUGAR LEVELS. PT REQUIRED EXTENSIVE ASSIST THIS AM COMPARED TO PRIOR SESSION. PT IS PLEASANT AND COOPERATIVE. THANK YOU, BONY MCKEON
--- NOTE | 2019-01-14 16:47 | NUR ---
I have reviewed this patient and I concur with the Shift Assessment completed by the Licensed Practical Nurse today this shift.
--- NOTE | 2019-01-14 16:48 | NUR ---
Rehab Note- Spoke with Kaitlin Pedroza call ref#[id number], informed her that the patient has not yet been admitted to our acute inpatient rehab unit, that he continues to have an acuute medical work up- she made a note in their system that we will contact them prior to the patient's admit- she stated that the Auth was just stating anticipated admit date of 01/10/19. Will continue to follow at this time. Lucero Bah RN Clinical Liaison, [facility] Rehab
--- NOTE | 2019-01-14 19:02 | NUR ---
PT CAN TOLERATE APPLESAUCE AND JELLO WELL THICKENED LIQUIDS.
[2019-01-14 20:00] VITALS: BP 168/112
[2019-01-15] VITALS: BP 148/88
[2019-01-15 04:00] VITALS: BP 147/93
--- NOTE | 2019-01-15 04:19 | NUR ---
PATIENT HAS ORDERED BLOOD SUGAR CHECKS Q6HRS. AT 0100 CHECK PATIENT'S SUGAR AT 69. PATIENT IS ALERT AND ORIENTED AT THIS TIME AND IS NPO FOR PROCEDURE DUE TODAY. PATIENT GIVEN ONE PACKET OF SUGAR. AT 0054, PATIENT'S BLOOD SUGAR IS AT 79. AT 0130, PATIENT'S SUGAR DROPPED BACK TO 67. PATIENT REMAINS ALERT AND ORIENTED. 15 ML OF D50W WAS GIVEN IV THROUGH RIGHT SUB-CLAVIAN. AT 0210 PATIENT'S BLOOD SUGAR TO 87. AT 0310 PATIENT'S BLOOD SUGAR IS AT 63. PATIENT IS ALERT AND ORIENTED. 10ML OF D50W GIVEN IV THROUGH RIGHT SUB-CLAVIAN. AT 0345, PATIENT'S BLOOD SUGAR IS 71 AND WAS ADVISED BY RN TO GIVE D50W 25ML THROUGH RIGHT SUB-CLAVIAN DUE TO PATIENT'S BLOOD SUGAR DROPPING. AT 0415, PATIENT'S BLOOD SUGAR AT 91. WILL CONTINUE TO MONITOR FSBS.
--- NOTE | 2019-01-15 05:08 | NUR ---
PATIENT'S FSBS AT 81.
[2019-01-15 06:10] LABS: ALBUMIN 4.3 g/dL (3.4-5.0); ANION GAP 18.2 mmol/L (8-16); CALCIUM 8.7 mg/dL (8.5-10.1); CARBON DIOXIDE 26.4 mmol/L (21.0-32.0); CREATININE - SERUM 2.2 mg/dL (0.6-1.3); POTASSIUM - SERUM 3.6 mmol/L (3.5-5.1); PROTEIN - SERUM 6.3 g/dL (6.4-8.2)
--- NOTE | 2019-01-15 06:32 | NUR ---
PATIENT'S FSBS 92.
[2019-01-15 07:03] LABS: BASOPHILS 0 % (0-2); EOSINOPHILS 0 % (0-7); HEMATOCRIT 26.7 % (42.0-54.0); HEMOGLOBIN 8.7 g/dL (13.5-17.5); IMMATURE GRANULOCYTES 0.2 % (0-5); LYMPHOCYTES 4.4 % (15-50); MCH 27.2 pg (26.0-34.0); MCHC 32.6 g/dL (31.0-37.0); MCV 83.4 fL (80.0-100.0); MONOCYTES 4.3 % (2-11); NEUTROPHILS 91.1 % (40-80)
[2019-01-15 07:07] LABS: WBC 8.9 10x3/uL (4.8-10.8)
[2019-01-15 07:08] LABS: PLATELET COUNT 39 10x3/uL (130-400)
--- NOTE | 2019-01-15 07:30 | NUR ---
REPORT RECIEVED. PT RESTING QUIETLY. R SUBCLAVIN INFUSING D5 @ 50 and L SUBCLAVIN SL. XIAO DRAINING DARK BROWN URINE. PT CURRENTLY ON 2.5L NC. RR EVEN AND UNLABORED, NO DISTRESS NOTED. BED LOCK AND IN LOWEST POSITION, CALL LIGHT WITHIN REACH. WILL CTM.
[2019-01-15 07:58] VITALS: BP 136/66
--- NOTE | 2019-01-15 09:05 | NUR ---
PT RETURNED TO ROOM FROM BONE MARROW BIPOSY. VS BP 134/88, HR 101, RR 16, O2 94% ON 2.5L NC. PT ALERT AND ORIENTED. WILL CTM
[2019-01-15 12:45] VITALS: BP 144/64
--- NOTE | 2019-01-15 14:46 | NUR ---
OT NOTE: PT COMPLETED BED MOB WITH MOD A. PT COMPLETED FACE WASH WITH MOD A. PT COMPLETED ORAL HYGIENE WITH MOD A. PT COMPLETED EOB SITTING BALANCE WITH CGA. THANK YOU, BONY MCKEON
[2019-01-15 16:15] VITALS: BP 133/66
--- NOTE | 2019-01-15 19:59 | NUR ---
PT CARE ASSUMED. RESTING QUITELY. RR EVEN AND UNLABORED. NO S/S OF DISTRESS NOTED. NO NEEDS EXPRESSED. WILL CPOC.
[2019-01-15 20:00] VITALS: BP 167/105
[2019-01-16 00:30] VITALS: BP 146/76
[2019-01-16 04:00] VITALS: BP 135/106
[2019-01-16 06:14] LABS: ALBUMIN 4.4 g/dL (3.4-5.0); ANION GAP 21.7 mmol/L (8-16); BILIRUBIN - TOTAL 5.61 mg/dL (0.2-1.3); CALCIUM 8.7 mg/dL (8.5-10.1); CARBON DIOXIDE 22.1 mmol/L (21.0-32.0); CREATININE - SERUM 2.2 mg/dL (0.6-1.3); POTASSIUM - SERUM 3.8 mmol/L (3.5-5.1); PROTEIN - SERUM 6.5 g/dL (6.4-8.2)
[2019-01-16 06:34] LABS: BASOPHILS 0.1 % (0-2); EOSINOPHILS 0 % (0-7); HEMATOCRIT 27.1 % (42.0-54.0); HEMOGLOBIN 8.7 g/dL (13.5-17.5); IMMATURE GRANULOCYTES 0.1 % (0-5); LYMPHOCYTES 2.8 % (15-50); MCH 27.3 pg (26.0-34.0); MCHC 32.1 g/dL (31.0-37.0); MONOCYTES 2.9 % (2-11); NEUTROPHILS 94.1 % (40-80); RBC 3.19 10x6/uL (4.20-6.10)
[2019-01-16 06:48] LABS: PLATELET COUNT 34 10x3/uL (130-400)
--- NOTE | 2019-01-16 07:40 | NUR ---
REPORT RECIEVED. PT LYING FOWLERS RESTING QUITELY. PT HAS A R SUBCLAVIN INFUSING 1/2 NS @50. XIAO DRAINING DARK BROWN URINE. BED LOCKED AND IN LOWEST POSITION. CALL LIGHT WITHIN REACH. WILL CTM
[2019-01-16 08:57] VITALS: BP 158/111
--- NOTE | 2019-01-16 09:58 | NUR ---
PT GIVEN JELLO AND THICKEN TEA AND HANDLED IT VERY WELL. WILL CTM
[2019-01-16 11:24] LABS: PLATELET ESTIMATE DECREASED
[2019-01-16 11:25] LABS: ANISOCYTOSIS OCC; ROULEAUX OCC
[2019-01-16 13:07] VITALS: BP 172/103
[2019-01-16 13:33] LABS: INR 1.52 (0.85-1.17); PROTIME 17.7 SECONDS (11.6-15.0)
--- NOTE | 2019-01-16 15:10 | NUR ---
OT NOTE: PT COMPLETED SUPINE TO SIT SIT WITH MAX/MOD A. PT COMPLETED BED TO CHAIR TSF WITH MAX A. PT REQUIRED MAX A WITH HYGIENE TASKS. THANK YOU, BONY MCKEON
[2019-01-16 16:37] VITALS: BP 138/97
--- NOTE | 2019-01-16 19:30 | NUR ---
PT CARE ASSUMED. UP IN BED WATCHING TV. A&O RR EVEN AND UNLABORED. DENIES NEEDS AT THIS TIME. NO S/S OF DISTRESS NOTED. WILL CPOC.
[2019-01-16 20:00] VITALS: BP 146/98
[2019-01-17] VITALS: BP 148/102
[2019-01-17 04:30] VITALS: BP 144/100
[2019-01-17 06:24] LABS: ALBUMIN 3.9 g/dL (3.4-5.0); ANION GAP 15.5 mmol/L (8-16); BILIRUBIN - TOTAL 4.36 mg/dL (0.2-1.3); CALCIUM 8.2 mg/dL (8.5-10.1); CREATININE - SERUM 2.4 mg/dL (0.6-1.3); POTASSIUM - SERUM 3.5 mmol/L (3.5-5.1); PROTEIN - SERUM 6.1 g/dL (6.4-8.2)
[2019-01-17 07:11] LABS: BASOPHILS 0.1 % (0-2); EOSINOPHILS 0 % (0-7); HEMOGLOBIN 8.7 g/dL (13.5-17.5); IMMATURE GRANULOCYTES 0.4 % (0-5); MCH 27.5 pg (26.0-34.0); MCHC 32.2 g/dL (31.0-37.0); MCV 85.4 fL (80.0-100.0); NEUTROPHILS 93.5 % (40-80); RBC 3.16 10x6/uL (4.20-6.10)
--- NOTE | 2019-01-17 07:31 | NUR ---
RECIEVED REPORT. PATIENT IS RESTING QUIETLY AT THIS TIME. DENIES ANY NEEDS AT THIS TIME. HE HAS JUST RECIEVED HIS BREATHING TREATMENT.
[2019-01-17 07:37] LABS: PLATELET COUNT 31 10x3/uL (130-400)
--- NOTE | 2019-01-17 08:45 | NUR ---
PATIENT IS BEING PREOPED NOW TO HAVE A PEG TUBE PLACED BY DR SEAMAN. PATIENT SIGNED THE CONSENTS THIS MORNING AND HAS HAD NOTHING TO EAT OR DRINK SINCE BEFORE MIDNIGHT LAST NIGHT.
[2019-01-17 09:04] VITALS: BP 158/106
--- NOTE | 2019-01-17 10:48 | NUR ---
Patient returned from surgery. He is stable and vital signs are good. He is resting quietly at this time. He has successfully had a PEG tube placed. Acknowledged orders to remove the right side trialysis. Will ask dr urrutia is we can remove the right side cvl. will attempt to obtain a PIV.
[2019-01-17 12:20] VITALS: BP 152/87
--- NOTE | 2019-01-17 12:28 | NUR ---
WOUND CARE CONSULT ADDED ABOUT THE SORE UNDER PATIENTS NOSE. HE IS STILL RESTING QUIETLY.VITAL SIGNS ARE STABLE.
--- NOTE | 2019-01-17 12:30 | NUR ---
CALLING [employer] TO GET THEM TO BRING AN ABDOMINAL BINDER ORDERED.
--- NOTE | 2019-01-17 12:32 | NUR ---
NUTRITION F/U RECEIVED CONSULT FOR TUBE FEED RECOMMENDATIONS. S/P PEG PLACEMENT. 1)OSMOLITE 1.0 CARLOTTA @15 CC/HR 2)INCREASE 10 CC/HR Q 8 HOURS TOLERATED TO CURRENT GOAL RATE 50 CC/HR 3)50 CC H2O FLUSH Q 4 HOURS TUBE FEED GOAL RATE MAY REQUIRE ADJUSTMENT DEPENDING ON PT PO INTAKE RD FOLLOWING
--- NOTE | 2019-01-17 13:22 | NUR ---
REMOVED RIGHT SIDE TRIALYSIS WITH CATHETER INTACT. REMOVED TWO SUTURES FIRST. APPLIED PRESSURE FOR 20 MINUTES TO THE SITE AND THEN APPLIED A PRESSURE DRESSING. FRANECS WILLIS ORDERED THE REMOVAL.
[2019-01-17 17:00] VITALS: BP 147/91
[2019-01-17 20:00] VITALS: BP 125/98; BP 152/98
--- NOTE | 2019-01-17 20:18 | NUR ---
EVENING ROUNDS COMPLETED. REPORT RECEIVED. PT SITTING UP IN BED WITH EYES OPEN, RR EVEN AND UNLABORED. OXYGEN AT 2.5 LITERS BY NASAL CANNULA. BED IN LOW POSITION. INTRODUCED SELF TO PT. PT REQUESTED WARM BLANKET. INFORMED PT ALL BLANKETS HAVE BEEN RECENTLY PLACED IN BLANKET WARMER AND WOULD BE READY IN A FEW MINUTES. PT APPEARS UPSET BUT NODS HEAD IN UNDERSTANDING. CALL LIGHT IN REACH. WILL CTM.
[2019-01-18 04:00] VITALS: BP 155/81
--- NOTE | 2019-01-18 05:55 | NUR ---
I have reviewed this patient and I concur with the Shift Assessment completed by the Licensed Practical Nurse today this shift.
--- NOTE | 2019-01-18 07:30 | NUR ---
A/A/OX4. DENIES ANY PAIN OR SOB. NO REQUESTS VOICED. ASSESSMENT COMPLETED AND WILL CONTINUE POC. PEG TUBE CONNECTED TO BEDSIDE DRAINAGE WITH SMALL AMT OF BROWN DRAINAGE IN BAG. BED IN LOW LOCKED POSITION AND CALL LIGHT IN REACH. XIAO PATENT AND DRAINING BLOOD COLORED URINE
[2019-01-18 07:55] VITALS: BP 131/72
--- NOTE | 2019-01-18 10:20 | NUR ---
Nutrition consult: PEG tube placed 01/17/19. Chart reviewed. Osmolite 1.0 dominic ordered to start at 15 ml/hr with gradual increase to goal rate of 50 ml/hr with 50 ml H2O flush q [address]N following.
[2019-01-18 10:36] LABS: BASOPHILS 0.1 % (0-2); EOSINOPHILS 1.8 % (0-7); HEMATOCRIT 28.1 % (42.0-54.0); HEMOGLOBIN 9.1 g/dL (13.5-17.5); IMMATURE GRANULOCYTES 0.1 % (0-5); LYMPHOCYTES 4.5 % (15-50); MCH 27.8 pg (26.0-34.0); MCHC 32.4 g/dL (31.0-37.0); MCV 85.9 fL (80.0-100.0); NEUTROPHILS 89.5 % (40-80); RBC 3.27 10x6/uL (4.20-6.10); WBC 7.8 10x3/uL (4.8-10.8)
[2019-01-18 10:44] LABS: PLATELET COUNT 25 10x3/uL (130-400)
[2019-01-18 10:51] LABS: ALBUMIN 3.5 g/dL (3.4-5.0); ANION GAP 13.1 mmol/L (8-16); BILIRUBIN - TOTAL 3.9 mg/dL (0.2-1.3); CALCIUM 8.1 mg/dL (8.5-10.1); CARBON DIOXIDE 28.1 mmol/L (21.0-32.0); CREATININE - SERUM 2.2 mg/dL (0.6-1.3); POTASSIUM - SERUM 3.2 mmol/L (3.5-5.1); PROTEIN - SERUM 5.8 g/dL (6.4-8.2)
--- NOTE | 2019-01-18 11:21 | NUR ---
TUBE FEEDING STARTED WITH OSMOLITE AT 15CC HR WITH 50CC H20 FLUSH Q 4 HRS.
[2019-01-18 11:34] LABS: PLATELET ESTIMATE DECREASED
[2019-01-18 12:25] VITALS: BP 141/82
--- NOTE | 2019-01-18 14:28 | NUR ---
PATIENT RESTING WITH EYES CLOSED. RESP EVEN AND UNLABORED. NO DISTRESS NOTED. CALL LIGHT WITHIN REACH.
[2019-01-18 16:02] VITALS: BP 133/69
--- NOTE | 2019-01-18 16:30 | NUR ---
RESIDUAL OF 3 CC. TUBE FEEDING INCREASED TO 25CC HR. ABD DRESSING WITH MOD AMT BLOOD AND DRESSING CHANGED. PT IS RESTING WELL WITHOUT COMPLAINTS OR REQEUSTS. STATES HE IS READY TO GET STRONGER AND BE ABLE TO GET OUT OF BED
[2019-01-18 20:00] VITALS: BP 167/94
--- NOTE | 2019-01-18 23:57 | NUR ---
INITIAL ROUNDS COMPLETED AT 1915 HRS. PT RESTING WITH EYES CLOSED. RESP EVEN AND REGULAR. ASSESSMENT COMPLETED AT 2009 HRS. VSS. ALERT AND ORIENTED. SANCHEZ. O2 3LNC. LUNGS DIMINISHED IN BASES BILAT. ABDLARGEWITH ACTIVE BS NOTED. OSMOLITE 1.0 AT 25CC/HR TO PEG TUBE. SITE CLEAN,DRY AND INTACT. PT ON AIR OVERLAY MATTRESS. DRESSING TO L NECK CLEAN,DRY AND INTACT. RTLSC SL. PT REFUSED TO TURN TO ALLOW NURSE TO DO SKIN ASSESSMENT TO BACKSIDE. XIAO DRAINING YELLOW URINE. PM MEDS GIVEN VIA PEG TUBE AT 2235HRS. 20CC RESIDUAL NOTED. RATE INCREASED TO 35CC/HR PER ORDERS. FSBS 243. 8 UNITS REG INSULIN GIVEN SUB-Q TO UPPER R [facility]. IV TO RTLSC WITH D5W AT 75CC/HR. PT CURRENTLY RESTING WITH EYES CLOSED. RESP EVEN AND REGULAR. SR UP X2,CALL LIGHT WITHIN REACH.
[2019-01-19] VITALS: BP 118/58
--- NOTE | 2019-01-19 01:43 | NUR ---
PT RESTING WITH EYES CLOSED. RESP EVEN AND REGULAR. SR UP X2, CALL LIGHT WITHIN REACH.
--- NOTE | 2019-01-19 04:36 | NUR ---
PT RESTING WITH EYES CLOSED. RESP EVEN AND REGULAR. RESIDUAL CHECK DONE WITH 20CC NOTED. OSMOLITE INCREASED TO 45CC/HR. FSBS 257. 10 UNITS REG INSULIN GIVEN SUB-Q TO UPPER R ARM. SR UP X2, CALL LIGHT WITHIN REACH.
[2019-01-19 05:29] LABS: BASOPHILS 0.1 % (0-2); EOSINOPHILS 0 % (0-7); HEMOGLOBIN 8.7 g/dL (13.5-17.5); IMMATURE GRANULOCYTES 0.7 % (0-5); LYMPHOCYTES 2.8 % (15-50); MCH 28.2 pg (26.0-34.0); MCHC 32.2 g/dL (31.0-37.0); MCV 87.4 fL (80.0-100.0); MONOCYTES 1.3 % (2-11); NEUTROPHILS 95.1 % (40-80); RBC 3.09 10x6/uL (4.20-6.10); WBC 7.2 10x3/uL (4.8-10.8)
[2019-01-19 05:30] LABS: PLATELET COUNT 30 10x3/uL (130-400)
[2019-01-19 05:41] LABS: ANION GAP 13.7 mmol/L (8-16); CARBON DIOXIDE 26.9 mmol/L (21.0-32.0); POTASSIUM - SERUM 3.6 mmol/L (3.5-5.1)
[2019-01-19 05:43] VITALS: BP 149/68
--- NOTE | 2019-01-19 06:40 | NUR ---
VSS THROUGHOUT NIGHT. PT DENIED AN DISCOMFORT. NEEDS MET; WILL CONTINUE TO MONITOR.
--- NOTE | 2019-01-19 07:30 | NUR ---
REPORT RECIEVED. PT LYING FOWLERS PT HAS R SUBCLAVIN INFUSING D5 @ 75 AND PEG TUBE FEEDINGS AT 45ML. HES CURRENTLY ON 3L NC. XIAO DRAINING DARK URINE. HE ALERT AND ORIENTED X3, RR EVEN AND UNLABORED. BED LOCKED AND IN LOWEST POSITION, CALL LIGHT WITHIN REACH. WILL CTM
[2019-01-19 07:58] VITALS: BP 142/63
--- NOTE | 2019-01-19 09:24 | TEE ---
PATIENT:GUMARO EVANS MEDICAL RECORD: [id number] LOCATION:D. D213 AGE OF PATIENT: 63 ADMISSION DATE: 12/29/18 SEX: M REFERRING PHYSICIAN: INTERPRETING PHYSICIAN: DERIAN CAMPOS MD TRANSESOPHAGEAL ECHOCARDIOGRAM Date: 01/02/19 SHARIF CHARGE INDICATIONS: PREMEDICATIONS: PATIENT'S RESPONSE PROCEDURE DOPPLER MEASUREMENTS: LVIT LA PA 161 RA LVOT 132 RVOT 73 Asc. Ao 190 AV Gradient Peak 14.48 AV Mean 8.32 AV Area 2.1 MV Gradient Peak 13.42 MV Mean 8.20 MV Area INTERPRETATION: Doppler: 2-D: COLOR FLOW DOPPLER NORMAL SALINE STUDY: MISCELLANOUS: DIAGNOSIS: PLAN: Systems Support Specialist:3 Dr. Francisco Camera Prototyping Engineer: Noe WAGNER COMMENTS: DATE OF SERVICE: PROCEDURE: SHARIF. DESCRIPTION OF PROCEDURE: After general sedation via TIVA via anesthesia, transesophageal Omniplane probe was placed down to the distal esophagus and proximal stomach without difficulty. No LVH. LV internal dimension is dilated. LV is globally hypokinetic with reduced EF, estimated EF 25%. Aortic valve is tricuspid. No evidence of stenosis by Doppler interrogation. Left atrium is TRANSESOPHAGEAL ECHOCARDIOGRAM REPORT [id number] GUMARO EVANS dilated. Mitral valve shows mitral valve repair with successful excursion, no more than mild MR. Right-sided chambers appear grossly dilated. Severe TR by color flow imaging. TRANSINT:[id number] Voice Confirmation ID: [id number] DOCUMENT ID: [id number] at 0924 CC: [id number] DICTATION DATE: 01/16/19 1323 HEAD INSPECTOR: 01/16/19 1340 ADM IN [place] [id number] [place] [address]
[2019-01-19 11:57] VITALS: BP 132/66
--- NOTE | 2019-01-19 12:51 | NUR ---
G-TUBE RISIDUAL AT 60ML. INCREASED FEEDINGS TO 50ML PER ORDER. FLUSHED WITH 60MLS. WILL CTM
[2019-01-19 14:55] VITALS: BP 146/74
--- NOTE | 2019-01-19 15:47 | MORECARE ---
CASE MANAGEMENT DISCHARGE SUMMARY PATIENT: GUMARO EVANS UNIT: [id number] ADM DATE: 12/29/18 AGE: 63 : [birth year] SEX: M ROOM/BED: D.2135 AUTHOR: KEITH,DOC PHYSICIAN: REFERRING PHYSICIAN: KEMAL RALPH MD DATE OF SERVICE: 01/19/19 Discharge Plan Patient Name: GUMARO EVANS [facility] [facility] 1955 Planned Disposition: Inpatient Rehab Anticipated Discharge Date: 01/09/19 Discharge Date: Expected LOS: 11 Initial Reviewer: [email or web address] Initial Review Date: 12/31/2018 Generated: 01/19/19 4:47 pm Comments DCP- Discharge Planning Updated by [email or web address]: Pebbles Muniz on 01/19/19 2:[address] Order received stating the the patient will need rehab or snf at [facility]. Chart reviewed and cm noted this patient has already been accepted and auth by insurance has been given for the patient to go to Inpatient Rehab. This is a managed policy with requires rehab to call to verify auth still good and notify them of admit date. No further consults are required as plan is in place and all arrangements are pending a discharge order from physician. Pebbles Muniz RN, [facility] [phone] DCP- Discharge Planning Updated by [id number]: Karlos Sanders on 01/09/19 12:[address] Patient Name: GUMARO EVANS Encounter No: [id number] : 1955 Primary Insurance: [facility] [employer] Anticipated DC Date: 01-09-2019 Planned Disposition: Inpatient Rehab External Planned Provider: [facility] DCP follow-up note: CM SPOKE TO [facility], INSURANCE AUTHORIZATION FOR REHAB RECEIVED. CM NOTIFIED ALBA ADAM. WHEN DISCHARGED, NOTIFY [facility] WHO WILL THEN CONTACT MED 2 NURSE WITH ROOM NUMBER WHEN READY TO ACCEPT PT AND NURSE REPORT. Karlos Sanders, CASE MANAGEMENT DCP- Discharge Planning Updated by [email or web address]: Karlos Sanders on 01/09/19 10:[address] Patient Name: GUMARO EVANS Encounter No: [id number] : 1955 Primary Insurance: [facility] [employer] [employer] Anticipated DC Date: 01-09-2019 Planned Disposition: Inpatient Rehab External Planned Provider: [facility] DCP follow-up note: CM SPOKE TO PEARL HAND SEJAL FONTAINE WHO ADVISED CM THAT PT IS PENDING INSURANCE AUTHORIZATION FOR INPATIENT REHAB AT [place]. CM SPOKE TO [facility] WHO ADVISED THAT AUTHORIZATION WAS SUBMITTED YESTERDAY TO PT'S INSURANCE COMPANY, THEY ARE WAITING INSURANCE DECISION. CM SPOKE TO PT IN ROOM, PT IS WILLING FOR REHAB AT [place] WITH PLAN TO MOVE IN WITH HIS MOTHER AT DISCHARGE FROM REHAB. IMPORTANT MESSAGE FROM MEDICARE PROVIDED AND EXPLAINED. CM WAITING INSURANCE AUTHORIZATION FOR INPATIENT REHAB AT [facility]. Karlos Sanders, CASE MANAGEMENT DCP- Discharge Planning Updated by [id number]: Amelia Fontaine on 12/31/18 2:[address] Patient Name: GUMARO EVANS Admission Status: Elective Accout number: [id number] Admission Date: 12-29-2018 : 1955 Admission Diagnosis: Attending: KEMAL RALPH Current LOS: 2 Anticipated DC Date: Planned Disposition: Home Primary Insurance: [facility] [employer]UT[employer] Discharge Planning Comments: CM met with patient's Mother Dasha and daughter Blanche at bedside after explaining CM role and obtaining verbal consent. Patient is currently sedated on vent. Patient lives at home with his mother and plans to return there upon discharge. Dasha states that she recently moved the patient in with her in [place] from [place]. CM discussed availability / needs of home health and medical equipment. Dasha states that the patient has a cane but no other medical equipment. Dasha states he may need home health upon discharge. Patient may require Hemodialysis as an outpatient CM will continue to follow and assist as needed with discharge planning / needs. Hall Clerk: Amelia Fontaine DCPIA - Discharge Planning Initial Assessment Updated by [email or web address]: Amelia Fontaine on 12/31/18 3:47 pm * Is the patient Alert and Oriented? No * How many steps to enter\exit or inside your home? * PCP Faith Paige APN * Pharmacy [facility] currently doesn't have one in [place] * Preadmission Environment Home with Family * ADLs Independent * Equipment Cane * List name and contact numbers for known caregivers / representatives who currently or will assist patient after discharge: Dasha Ellington - mother- [phone], Blanche Aguilar - daughter- [phone] * Verbal permission to speak to the caregivers and representatives has been obtained from the patient. N/A * Community resources currently utilized None * Additional services required to return to the preadmission environment? No * Can the patient safely return to the preadmission environment? Yes * Has this patient been hospitalized within the prior 30 days at any hospital? No Coverage Notice Reviewer: [email or web address] Rishi Sanders Notice Issued Date-Time: 01/09/2019 11:05 Notice Type: IM Discharge Notice Notice Delivered To: Patient Relationship to Patient: Curing Room Supervisor Name: Delivery Method: HAND - Hand Delivered Dorie Days: Prior Verbal Notification: Recipient Understood Notice: Yes Recipient Signature: Yes Med Rec Note Co-signed by Attending: Coverage Notice Comment: Last DP export: 01/10/19 8:51 am Patient Name: GUMARO EVANS Page [phone] at 1547 All edits/amendments must be made on the electronic document DICTATION DATE: 01/19/19 154 AREA MECHANIC: ROBERTO 01/19/191546 RPT#: [id number] DC DATE: STATUS: ADM IN [facility] [address] [place] [address] END OF REPORT
--- NOTE | 2019-01-19 17:04 | NUR ---
PATIENT RESTING IN BED WITH EYES CLOSED. EASILY AROUSED. RESP EVEN AND UNLABORED. 1ST STEP OVERLAY NOTED. PATIENT CONTINUES TO TOLERATE IV FLUIDS AND GASTRIC TUBE FEEDINGS WELL. NO DISTRESS. CALL LIGHT WITHIN REACH.
[2019-01-19 20:00] VITALS: BP 143/87
--- NOTE | 2019-01-19 23:38 | NUR ---
EVENING ROUNDS COMPLETED. REPORT RECEIVED. PT SITTING UP IN BED WITH EYES OPEN, RR EVEN AND UNLABORED. BED IN LOW POSITION. TUBE FEEDING INFUSING ORDERED. INTRODUCED SELF TO PT. PT DENIES FURTHER NEEDS AT THIS TIME, CALL LIGHT IN REACH. WILL CTM.
[2019-01-20] VITALS: BP 133/83; BP 137/89
--- NOTE | 2019-01-20 02:59 | NUR ---
I have reviewed this patient and I concur with the Shift Assessment completed by the Licensed Practical Nurse today this shift.
[2019-01-20 04:00] VITALS: BP 130/94
[2019-01-20 05:22] LABS: BASOPHILS 0 % (0-2); EOSINOPHILS 0 % (0-7); HEMATOCRIT 26.4 % (42.0-54.0); HEMOGLOBIN 8.6 g/dL (13.5-17.5); IMMATURE GRANULOCYTES 0.4 % (0-5); LYMPHOCYTES 2.9 % (15-50); MCH 28.1 pg (26.0-34.0); MCHC 32.6 g/dL (31.0-37.0); MCV 86.3 fL (80.0-100.0); MONOCYTES 4.4 % (2-11); NEUTROPHILS 92.3 % (40-80); RBC 3.06 10x6/uL (4.20-6.10); WBC 8.1 10x3/uL (4.8-10.8)
[2019-01-20 05:30] LABS: CALCIUM 8.1 mg/dL (8.5-10.1); CARBON DIOXIDE 25.6 mmol/L (21.0-32.0); CREATININE - SERUM 1.9 mg/dL (0.6-1.3); POTASSIUM - SERUM 3.6 mmol/L (3.5-5.1)
[2019-01-20 05:31] LABS: PLATELET COUNT 23 10x3/uL (130-400)
[2019-01-20 08:39] VITALS: BP 157/91
[2019-01-20 09:13] LABS: PLATELET ESTIMATE DECREASED
[2019-01-20 09:16] LABS: ANISOCYTOSIS OCC; HYPOCHROMASIA OCC
--- NOTE | 2019-01-20 11:26 | NUR ---
XIAO WAS NOT DRAINING WELL. EMPTIED STERILE WATER INSERTED A 2 INCHES, AND REINFLATED STERILE WATER WITH 10CC NS. PATIENT TOLERATED. CHANGED THE XIAO COLLECTION BAG, AND NOW IT IS DRAINING WELL. THERE WAS ALOT OF BUILD UP IN THE TUBING . PATIENT IS STILL EXPERIENCING SOME GAS PAINS. CHANGED ALL LININS, TREATED ULCER UNDER NOSE. CLEANED PATIENT UP WELL.
[2019-01-20 11:43] VITALS: BP 163/104
--- NOTE | 2019-01-20 13:23 | NUR ---
CHECKED RESIDULA AND FOUND 30 ML RESIDUAL, HOWEVER THERE WAS 180 OF AIR IN THE STOMACH. PATIENT REPORTED RELIEF WHEN I REMOVED THE AIR. CONTINUING TUBE FEEDS ORDERED. I JUST CHANGED THE TUBING AND BAGS OUT, BECAUSE FOR SOME REASON IT HAS BEEN FALLING ON DAYS. PATIENT DENIES ANY NEEDS, HE WAS UP IN THE CHAIR WITH PT. NOW HE IS BACK IN BED.
--- NOTE | 2019-01-20 15:15 | NUR ---
OT NOTE: PT COMPLETED BED MOB WITH MAX A. PT COMPLETED UE AROM AXS. PT COMPLETED FACE WASH WITH SET UP. PT REQUIRED EXTENSIVE CUES FOR INCREASED PARTICIPATION WITH THERAPY. PT IS PLEASANT BUT EXHIBITS DECREASED MOTIVATION WITH EXERTION. THANK YOU, BONY MCKEON
[2019-01-20 18:18] VITALS: BP 146/87
[2019-01-20 20:00] VITALS: BP 155/91
--- NOTE | 2019-01-21 05:30 | NUR ---
PAN PATIENTS MORNING LABS, RUBBED LOTION ON PATIENTS FACE AND HANDS. PATIENT HAS NO OTHER NEEDS AT THIS TIME. CALL LIGHT WITHIN REACH.
[2019-01-21 05:54] LABS: ANION GAP 9.7 mmol/L (8-16); CARBON DIOXIDE 28.1 mmol/L (21.0-32.0); CREATININE - SERUM 1.8 mg/dL (0.6-1.3); POTASSIUM - SERUM 3.8 mmol/L (3.5-5.1)
[2019-01-21 05:55] LABS: BASOPHILS 0.1 % (0-2); HEMATOCRIT 26.2 % (42.0-54.0); HEMOGLOBIN 8.5 g/dL (13.5-17.5); IMMATURE GRANULOCYTES 0.3 % (0-5); LYMPHOCYTES 4.3 % (15-50); MCH 28.3 pg (26.0-34.0); MCHC 32.4 g/dL (31.0-37.0); MCV 87.3 fL (80.0-100.0); MONOCYTES 3.1 % (2-11); NEUTROPHILS 91.2 % (40-80)
[2019-01-21 05:59] LABS: PLATELET COUNT 21 10x3/uL (130-400)
--- NOTE | 2019-01-21 08:38 | NUR ---
PT AWAKE AND SPEAKING. TUBE FEEDING INFUSING WELL. WILL CONTIUE WITH POC
[2019-01-21 09:20] VITALS: BP 148/98
--- NOTE | 2019-01-21 12:47 | NUR ---
OT NOTE: PT SEEN BY OT ON THIS DATE. HAVE NOT SEEN PT IN OVER A WEEK, BUT HIS LE STRENGTH HAS DECREASED SIGNIFICANT SINCE LAST SEEN BY THIS THERAPIST. REQUIRED MAX ASSIST WITH BED MOB; MIN ASSIST FOR STATIC SITTING ON EOB; TOTAL LIFT FOR TRANSFER FROM BED TO CHAIR. PT ABLE TO DEMONSTRATE B LE KNEE FLEX AND EXT WITH FAIR AROM, HOWEVER, STRENGTH WAS GROSSLY 3/5..ABLE TO TOLERATE MINIMAL PRESSURE AND UNABLE TO BEAR WT IN LES WHEN STANDING. UE AROM REMAINS GOOD AND B UE STRENGTH IS 3+/5. CONTINUED WITH EXS FOR UE AND LE STRENGTHENING. ENCOURAGED PT TO PERFORM THROUGHOUT THE DAY WHILE SITTING UP IN CHAIR. DR WALTERS REPORTS THAT SHE IS GOING TO GIVE HIM PLATELETTS TODAY. VENECIA AUSTIN, OTR/L
[2019-01-21 13:35] VITALS: BP 137/59
--- NOTE | 2019-01-21 14:39 | NUR ---
Nutrition Follow-up: Pt tolerating Osmolite 1.0 @ goal rate of 50 mL/hr. Also receiving puree low Na diet with nectar thick liquids & Ensure with lunch. PO intake remains poor (10% avg meal intake yesterday 01/20). Wt: 204# Last BM: 01/20 per chart Labs reviewed Meds reviewed Continue current TF/diet as tolerated. RD following.
--- NOTE | 2019-01-21 15:27 | NUR ---
OT NOTE: PT COMPLETED BED MOB TASKS WITH MOD/MAX A. PT DOES NOT BEAR WT IN LEGS. PT COMPLETED UE AROM . PT COMPLETED FACE WASH WITH SET UP. THANK YOU, BONY MCKEON
[2019-01-21 17:42] VITALS: BP 135/71
--- NOTE | 2019-01-21 17:48 | NUR ---
1645 PLATELET INFUSIONS X 2 COMPLETE DRESSING TO PEG TUBE SITE WITH MODERATE DRAINAGE NOTED CLEANSED AREA WITH NS AND DRAIN SPONGES AND ABD PADS APPLIED
[2019-01-21 20:00] VITALS: BP 178/95
--- NOTE | 2019-01-21 21:00 | NUR ---
PT RESTING IN BED WITH EYES CLOSED. RR EVEN AND UNLABORED. NO S/S OF DISTRESS AT THIS TIME. BED LOW CALL LIGHT WITHIN REACH. WILL CONTINUE TO MONITOR.
[2019-01-22] VITALS: BP 145/85
--- NOTE | 2019-01-22 02:29 | NUR ---
i have reviewed this patient and i concur with the shift assessment conducted by Licensed Practical Nurse.
[2019-01-22 04:00] VITALS: BP 144/85
--- NOTE | 2019-01-22 05:03 | NUR ---
PT RESTING COMFORTABLY IN BED WITH RR EVEN AND UNLABORED. VITALS STABLE AT THIS TIME. BED LOW CALL LIGHT WITHIN REACH. WILL CONTINUE TO MONITOR.
[2019-01-22 06:41] LABS: BASOPHILS 0 % (0-2); EOSINOPHILS 0 % (0-7); HEMATOCRIT 24.5 % (42.0-54.0); IMMATURE GRANULOCYTES 0.2 % (0-5); LYMPHOCYTES 2.4 % (15-50); MCH 28.7 pg (26.0-34.0); MCHC 32.7 g/dL (31.0-37.0); MCV 87.8 fL (80.0-100.0); MONOCYTES 1.5 % (2-11); NEUTROPHILS 95.9 % (40-80); PLATELET COUNT 58 10x3/uL (130-400); RBC 2.79 10x6/uL (4.20-6.10); WBC 5.5 10x3/uL (4.8-10.8)
[2019-01-22 07:03] LABS: CALCIUM 7.9 mg/dL (8.5-10.1); CARBON DIOXIDE 27.1 mmol/L (21.0-32.0); CREATININE - SERUM 1.7 mg/dL (0.6-1.3); POTASSIUM - SERUM 4.1 mmol/L (3.5-5.1)
--- NOTE | 2019-01-22 07:10 | NUR ---
REPORT RECEIVED FROM CUTTER BRAKE LINING AND PATIENT CARE ASSUMED. PATIENT LAYING IN BED WITH EYES CLOSED AND BREATHING EVENLY. PATIENT IS STABLE AND VSS. WILL CONTINUE WITH PLAN OF CARE. SR UP X 2 BED IN LOW POSITION AND CALL LIGHT IN REACH.
--- NOTE | 2019-01-22 07:21 | NUR ---
FSBS- 362. OTILIA PAGED. ORDERS FOR FSBS. ALBA BINGHAM STATES HE WILL LET KNOW AND ADJUSTMENTS WILL BE MADE
[2019-01-22 09:31] VITALS: BP 165/93
--- NOTE | 2019-01-22 10:31 | NUR ---
PATIENT AWAKE, ALERT AND ORIENTED X 4. PATIENT DENIES ANY NEEDS OR PAIN. WILL CONTINUE TO MONITOR. SR UP X 2 BED IN LOW POSITION AND CALL LIGHT IN REACH.
[2019-01-22 11:03] LABS: PLATELET ESTIMATE DECREASED
[2019-01-22 11:05] LABS: ANISOCYTOSIS OCC; HYPOCHROMASIA OCC
[2019-01-22 11:24] VITALS: BP 156/84
--- NOTE | 2019-01-22 14:10 | NUR ---
PATIENT IS STABLE AND VSS. WRITTEN AND VERBAL INSTRUCTIONS GIVEN. PATIENT VERBALIZED UNDERSTANDING AND SIGNED PAPERWORK. PATIENT TO FRONT DOOR VIA WC TO PRIVATED VEHICLE DRIVEN BY FRIEND.
--- NOTE | 2019-01-22 14:15 | NUR ---
PATIENT IS STABLE AND VSS. ORDERS FOR BLOOD INFUSION RECEIVED. BLOOD ACQUIRED FOR BLOOD BANK AND ALL SAFETY MEASURES FOLLOWED. SEE TRANSIFUSION SHEET FOR DETAILS. TRANSFUSION STARTED. STAYED WITH PATIENT FOR 15 MINUTES. VSS. PATIENT DENIES ANY SOB, WHEZZING, ITCHING ETC. NO TRANSFUSION REACTION NOTED. WILL CONTINUE TO MONITOR. SR UP X 2 BED IN LOW POSTION AND CALL LIGHT INREACH.
--- NOTE | 2019-01-22 14:34 | NUR ---
OT NOTE: PT REFUSED SITTING UP IN CHAIR. PT COMPLETED BED MOB TASKS WITH MOD A. PT COMPLETED BUE AROM AXS. PT COMPLETED FACE WASH WITH SET UP. PT SAID HE IS TIRED ALL THE TIME. LOVETT EDUCATED PT ON BENEFIT OF SITTING UP IN CHAIR. THANK YOU, BONY MCKEON
--- NOTE | 2019-01-22 19:35 | NUR ---
PT RESTING IN BED WITH EYES CLOSED RR EVEN AND UNLABORED. NO S/S OF DISTRESS AT THIS TIME. PT VITALS STABLE. BED LOW, CALL LIGHT WITHIN REACH, WILL CONTINUE TO MONITOR.
--- NOTE | 2019-01-22 23:30 | NUR ---
PT 2ND UNIT OF PRBC DONE INFUSING AT THIS TIME. VITALS STABLE. NO S/S OF DISTRESS. BED LOW CALL LIGHT WITHIN REACH. WILL CONTINUE TO MONITOR.
--- NOTE | 2019-01-23 05:37 | NUR ---
PT RIGHT CHEST CVL DRESSING CHANGED USING STERILE TECHNIQUE. WILL CONTINUE TO MONITOR.
[2019-01-23 06:02] LABS: ALBUMIN 2.8 g/dL (3.4-5.0); BILIRUBIN - TOTAL 2.25 mg/dL (0.2-1.3); CALCIUM 7.8 mg/dL (8.5-10.1); CARBON DIOXIDE 26.9 mmol/L (21.0-32.0); CREATININE - SERUM 1.5 mg/dL (0.6-1.3); MAGNESIUM - SERUM 1.6 mg/dL (1.8-2.4); POTASSIUM - SERUM 3.9 mmol/L (3.5-5.1); PROTEIN - SERUM 5.5 g/dL (6.4-8.2)
--- NOTE | 2019-01-23 06:11 | NUR ---
I have reviewed this patient and I concur with the Shift Assessment completed by the Licensed Practical Nurse today this shift.
[2019-01-23 06:25] LABS: BASOPHILS 0 % (0-2); EOSINOPHILS 0.5 % (0-7); HEMOGLOBIN 9.6 g/dL (13.5-17.5); IMMATURE GRANULOCYTES 0.2 % (0-5); LYMPHOCYTES 3.4 % (15-50); MCH 28.7 pg (26.0-34.0); MCHC 33.1 g/dL (31.0-37.0); MCV 86.6 fL (80.0-100.0); MONOCYTES 2.7 % (2-11); NEUTROPHILS 93.2 % (40-80); WBC 5.9 10x3/uL (4.8-10.8)
[2019-01-23 07:21] LABS: PLATELET COUNT 45 10x3/uL (130-400); RBC 3.35 10x6/uL (4.20-6.10)
[2019-01-23 08:25] VITALS: BP 139/68
[2019-01-23 08:29] LABS: PLATELET ESTIMATE DECREASED
--- NOTE | 2019-01-23 10:34 | NUR ---
UP IN BEDSIDE CHAIR BY PHY THERAPY. HAD LARGE VERY SOFT LIGHT BROWN STOOL.
[2019-01-23 11:33] VITALS: BP 126/64
--- NOTE | 2019-01-23 14:48 | NUR ---
OT NOTE: UE AROM EXS; PT VERY WEAK. ALSO ATTEMPTED LE EXS BUT PT WITH POOR STRENGTH. VENECIA AUSTIN, OTR/L
--- NOTE | 2019-01-23 14:49 | NUR ---
OT NOTE: PT COMPLETED BATHING TASKS WITH MAX A. PT REQUIRED MAX A FOR HYGIENE TASKS. PT REQUIRED MOD A FOR BED MOB SIDE ROLLING. PT AGREED TO SIT UP TODAY. REPORTED TO NURSE POSSIBLE CATH LEAK. THANK YOU, BONY MCKEON
[2019-01-23 14:51] VITALS: BP 142/69
--- NOTE | 2019-01-23 17:13 | NUR ---
BLOOD INFUSING WITHOUT ADVERSE REACTION NOTED. TF INFUSING PER PEG. CALL LIGHT IN REACH. WILL MONITOR.
[2019-01-23 20:27] VITALS: BP 156/84
--- NOTE | 2019-01-24 00:17 | NUR ---
RESTING QUITELY WITH EYES CLOSED, AROUSED EASILY TO VOICE, DENIES PAIN, GENERALIZED EDEMA NOTED, PEG TUBE IN PLACE WITH FEEDING INFUSING WITH OUT DIFFICULTY, XIAO CATH DRAINING YELLOW URINE
[2019-01-24 00:27] VITALS: BP 144/90
--- NOTE | 2019-01-24 03:20 | NUR ---
I have reviewed this patient and I concur with the Shift Assessment completed by the Licensed Practical Nurse today this shift.
[2019-01-24 04:19] VITALS: BP 140/87
[2019-01-24 06:20] LABS: ALBUMIN 2.8 g/dL (3.4-5.0); ANION GAP 9.6 mmol/L (8-16); BILIRUBIN - TOTAL 2.13 mg/dL (0.2-1.3); CARBON DIOXIDE 31.2 mmol/L (21.0-32.0); CREATININE - SERUM 1.4 mg/dL (0.6-1.3); MAGNESIUM - SERUM 1.7 mg/dL (1.8-2.4); POTASSIUM - SERUM 3.8 mmol/L (3.5-5.1); PROTEIN - SERUM 5.7 g/dL (6.4-8.2)
[2019-01-24 06:45] LABS: BASOPHILS 0 % (0-2); EOSINOPHILS 2.4 % (0-7); HEMATOCRIT 29.7 % (42.0-54.0); HEMOGLOBIN 9.5 g/dL (13.5-17.5); MCH 28.4 pg (26.0-34.0); MONOCYTES 2.4 % (2-11); NEUTROPHILS 88.2 % (40-80); RBC 3.34 10x6/uL (4.20-6.10)
--- NOTE | 2019-01-24 07:02 | NUR ---
REPORT RECEIVED. HE IS ALERT AND SMILING. HOB UP 30 DEGREES. OSMOLITE 1.5 INFUSING PER PEG. RIGHT CHEST CVL INTACT SALINE LOCKED. SITE CLEAR. F/C PATENT WITH YELLOW URINE DRAINING. CL IN REACH. DENIES ANY CURRENT NEEDS. SCD'S ARE ON AND HEELS ARE FLOATED WITH 1ST STEP OVERLAY MATTRESS ON BED. BED LOCKED AND IN LOWEST POSITION. CAREPLAN REVIEW DONE WITH SAFETY PRECAUTIONS IN PLACE
[2019-01-24 07:15] LABS: WBC 3.7 10x3/uL (4.8-10.8)
[2019-01-24 07:16] LABS: MCV 88.9 fL (80.0-100.0)
[2019-01-24 07:19] LABS: PLATELET COUNT 37 10x3/uL (130-400)
[2019-01-24 08:32] VITALS: BP 129/84
[2019-01-24 09:54] LABS: PLATELET ESTIMATE DECREASED
[2019-01-24 11:34] VITALS: BP 132/77
--- NOTE | 2019-01-24 11:39 | NUR ---
OT NOTE: PT WITH CONTINUED DIARRHEA. PT HAD 2 EPISODES OF DIARRHEA DURING THERAPY AND REUQIRED CLEANING. ATTEMPTED TO WASH FACE, HANDS, ARMS, AND UPPER LEGS, BUT DUE TO DECREASED COORDINATION AND HAND STRENGTH, PT HAD INCREASED DIFFICULTY.. REQUIRED MOD ASSIST FOR THIS. BED MOB WITH MOD ASSIST FOR ROLLING SIDE TO SIDE; PT ABLE TO MAINTAIN SIDELIEING WHILE HOLDING ON TO BED RAIL WITHOUT ASSIST X 6 TRIALS. UE AROM EXS WITH UES AND LES..HAND STRENGTHENING EXS; MAX ASSIST WITH REMAINDER OF BATHING TASKS. MET WITH TREATMENT NURSE REGARDING APPLICATION OF POWDER TO ABDOMINAL FOLDS. VENECIA AUSTIN, OTR/L
[2019-01-24 11:48] LABS: PLATELET COUNT 26 10x3/uL (130-400)
--- NOTE | 2019-01-24 13:59 | NUR ---
Nutrition Follow-up: Upon entering room, noted Osmolite 1.5 running @ 50 mL/hr. Order is for Osmolite 1.0. H20 flushes recently increased to 100 mL q 4 hrs. PO intake remains poor. Noted pt with diarrhea during OT. Diet: Puree Low Na with nectar thick liquids, Ensure with lunch Osmolite 1.0 @ 50 mL/hr No new wt Last BM: 01/24 Labs reviewed Meds reviewed Discussed TF order with pt's nurse. Osmolite 1.0 brought to floor and asked that Osmolite 1.[address] replaced [address] it[address] RD following.
--- NOTE | 2019-01-24 14:48 | NUR ---
OT NOTE: PT COMPLETED HYGIENE AND BATHING TASKS WITH MAX Kimberly. PT OCMPLETED BED MOB WITH KHOI Harris. THANK YOU,BONY MCKEON
[2019-01-24 16:23] VITALS: BP 161/92
--- NOTE | 2019-01-24 16:53 | MORECARE ---
CASE MANAGEMENT DISCHARGE SUMMARY PATIENT: GUMARO EVANS UNIT: [id number] ADM DATE: 12/29/18 AGE: 63 : [birth year] SEX: M ROOM/BED: D.2135 AUTHOR: KEITH,DOC PHYSICIAN: REFERRING PHYSICIAN: KEMAL RALPH MD DATE OF SERVICE: 01/24/19 Discharge Plan Patient Name: [facility]UMAR[facility] EVANS [facility] [facility] 1955 Planned Disposition: Jail Facility Anticipated Discharge Date: 01/27/19 Discharge Date: Expected LOS: 29 Initial Reviewer: [email or web address] Initial Review Date: 12/31/2018 Generated: 01/24/19 5:53 pm DCP- Discharge Planning Updated by [email or web address]: Pebbles Muniz on 01/19/19 2:[address] Order received stating the the patient will need rehab or snf [place]. Chart reviewed and cm noted this patient has already been accepted and auth by insurance has been given for the patient to go to Inpatient Rehab. This is a managed policy with requires rehab to call to verify auth still good and notify them of admit date. No further consults are required as plan is in place and all arrangements are pending a discharge order from physician. Pebbles Muniz RN, [facility] [phone] DCP- Discharge Planning Updated by [email or web address]: Karlos Sanders on 01/09/19 12:[address] Patient Name: GUMARO EVANS Encounter No: [id number] : 1955 Primary Insurance: [facility] [employer] Anticipated DC Date: 01-09-2019 Planned Disposition: Inpatient Rehab External Planned Provider: [facility] DCP follow-up note: CM SPOKE TO [facility], INSURANCE AUTHORIZATION FOR REHAB RECEIVED. CM NOTIFIED ALBA ADAM. WHEN DISCHARGED, NOTIFY [facility] WHO WILL THEN CONTACT MED 2 NURSE WITH ROOM NUMBER WHEN READY TO ACCEPT PT AND NURSE REPORT. Karlos Sanders, CASE MANAGEMENT DCP- Discharge Planning Updated by [id number]: Karlos Sanders on 01/09/19 10:[address] Patient Name: GUMARO EVANS Encounter No: [id number] : 1955 Primary Insurance: [facility] [employer] Anticipated DC Date: 01-09-2019 Planned Disposition: Inpatient Rehab External Planned Provider: [facility] DCP follow-up note: CM SPOKE TO COMPOUNDING PHARMACY TECHNICIAN SEJAL FONTAINE WHO ADVISED CM THAT PT IS PENDING INSURANCE AUTHORIZATION FOR INPATIENT REHAB AT [place]. CM SPOKE TO [facility] WHO ADVISED THAT AUTHORIZATION WAS SUBMITTED YESTERDAY TO PT'S INSURANCE COMPANY, THEY ARE WAITING INSURANCE DECISION. CM SPOKE TO PT IN ROOM, PT IS WILLING FOR REHAB AT [place] WITH PLAN TO MOVE IN WITH HIS MOTHER AT DISCHARGE FROM REHAB. IMPORTANT MESSAGE FROM MEDICARE PROVIDED AND EXPLAINED. CM WAITING INSURANCE AUTHORIZATION FOR INPATIENT REHAB AT [facility]. Karlos Sanders, CASE MANAGEMENT DCP- Discharge Planning Updated by [id number]: Amelia Fontaine on 12/31/18 2:[address] Patient Name: GUMARO EVANS Admission Status: Elective Accout number: [id number] Admission Date: 12-29-2018 : 1955 Admission Diagnosis: Attending: KEMAL RALPH Current LOS: 2 Anticipated DC Date: Planned Disposition: Home Primary Insurance: [facility] [employer] Discharge Planning Comments: CM met with patient's Mother Dasha and daughter Blanche at bedside after explaining CM role and obtaining verbal consent. Patient is currently sedated on vent. Patient lives at home with his mother and plans to return there upon discharge. Dasha states that she recently moved the patient in with her in [place] from [place]. CM discussed availability / needs of home health and medical equipment. Dasha states that the patient has a cane but no other medical equipment. Dasha states he may need home health upon discharge. Patient may require Hemodialysis as an outpatient CM will continue to follow and assist as needed with discharge planning / needs. Lot Porter: Amelia Fontaine DCPIA - Discharge Planning Initial Assessment Updated by [id number]: Amelia Fontaine on 12/31/18 3:47 pm * Is the patient Alert and Oriented? No * How many steps to enter\exit or inside your home? * PCP Faith Paige APN * Pharmacy [facility] currently doesn't have one in [place] * Preadmission Environment Home with Family * ADLs Independent * Equipment Cane * List name and contact numbers for known caregivers / representatives who currently or will assist patient after discharge: Dasha Ellington - mother- [phone], Blanche Aguilar - daughter- [phone] * Verbal permission to speak to the caregivers and representatives has been obtained from the patient. N/A * Community resources currently utilized None * Additional services required to return to the preadmission environment? No * Can the patient safely return to the preadmission environment? Yes * Has this patient been hospitalized within the prior 30 days at any hospital? No External Providers External Provider: [facility] Next Contact Date: 01/24/2019 Service Request Date: Service Type: Resolution: Reviewer: Comments: Coverage Notice Reviewer: [email or web address] Rishi Sanders Notice Issued Date-Time: 01/09/2019 11:05 Notice Type: IM Discharge Notice Notice Delivered To: Patient Relationship to Patient: Children[facility] Nursery Assistant Name: Delivery Method: HAND - Hand Delivered Dorie Days: Prior Verbal Notification: Recipient Understood Notice: Yes Recipient Signature: Yes Med Rec Note Co-signed by Attending: Coverage Notice Comment: Last DP export: 01/19/19 2:47 p Patient Name: GUMARO EVANS Page 12798 at 1653 All edits/amendments must be made on the electronic document DICTATION DATE: 01/24/191652 MANAGER PROGRAMMING: ROBERTO 01/24/191652 RPT#: [id number] DC DATE: STATUS: ADM IN [facility] [address] [place] [address] END OF REPORT
--- NOTE | 2019-01-24 17:16 | MORECARE ---
CASE MANAGEMENT DISCHARGE SUMMARY PATIENT: GUMARO EVANS UNIT: [id number] ADM DATE: 12/29/18 AGE: 63 : 51 SEX: M ROOM/BED: D.2135 AUTHOR: KEITH,DOC PHYSICIAN: REFERRING PHYSICIAN: KEMAL RALPH MD DATE OF SERVICE: 01/24/19 Discharge Plan Patient Name: GUMARO EVANS [facility] [facility] 1955 Planned Disposition: Fdc Facility Anticipated Discharge Date: 01/27/19 Discharge Date: Expected LOS: 29 Initial Reviewer: [id number] Initial Review Date: 12/31/2018 Generated: 01/24/19 6:16 pm DCP- Discharge Planning Updated by [email or web address]: Pebbles Muniz on 01/19/19 2:[address] Order received stating the the patient [place] [facility] [place] [place] [facility]. Chart reviewed and cm noted this patient has already been accepted and auth by insurance has been given for the patient to go to Inpatient Rehab. This is a managed policy with requires rehab to call to verify auth still good and notify them of admit date. No further consults are required as plan is in place and all arrangements are pending a discharge order from physician. Pebbles Muniz RN, [facility] [phone] DCP- Discharge Planning Updated by [email or web address]: Karlos Sanders on 01/09/19 12:[address] Patient Name: GUMARO EVANS Encounter No: [id number] : 1955 Primary Insurance: [facility] MED[facility] SOLUTIONS Anticipated DC Date: 01-09-2019 Planned Disposition: Inpatient Rehab External Planned Provider: [facility] DCP follow-up note: CM SPOKE TO [facility], INSURANCE AUTHORIZATION FOR REHAB RECEIVED. CM NOTIFIED ALBA ADAM. WHEN DISCHARGED, NOTIFY [facility] WHO WILL THEN CONTACT MED 2 NURSE WITH ROOM NUMBER WHEN READY TO ACCEPT PT AND NURSE REPORT. Karlos Sanders, CASE MANAGEMENT DCP- Discharge Planning Updated by [id number]: Karlos Sanders on 01/09/19 10:[address] Patient Name: GUMARO EVANS Encounter No: [id number] : 1955 Primary Insurance: [facility] MEDICARE SOLUTIONS Anticipated DC Date: 01-09-2019 Planned Disposition: Inpatient Rehab External Planned Provider: [facility] DCP follow-up note: CM SPOKE TO PHYSICAL PLANT MANAGER SEJAL FONTAINE WHO ADVISED CM THAT PT IS PENDING INSURANCE AUTHORIZATION FOR INPATIENT REHAB AT [place]. CM SPOKE TO [facility] WHO ADVISED THAT AUTHORIZATION WAS SUBMITTED YESTERDAY TO PT'S INSURANCE COMPANY, THEY ARE WAITING INSURANCE DECISION. CM SPOKE TO PT IN ROOM, PT IS WILLING FOR REHAB AT [place] WITH PLAN TO MOVE IN WITH HIS MOTHER AT DISCHARGE FROM REHAB. IMPORTANT MESSAGE FROM MEDICARE PROVIDED AND EXPLAINED. CM WAITING INSURANCE AUTHORIZATION FOR INPATIENT REHAB AT [facility]. Karlos Sanders, CASE MANAGEMENT DCP- Discharge Planning Updated by [id number]: Amelia Fontaine on 12/31/18 2:[address] Patient Name: GUMARO EVANS Admission Status: Elective Accout number: [id number] Admission Date: 12-29-2018 : 1955 Admission Diagnosis: Attending: KEMAL RALPH Current LOS: 2 Anticipated DC Date: Planned Disposition: Home Primary Insurance: [facility] MEDIC[facility] SOLUTIONS Discharge Planning Comments: CM met with patient's Mother Dasha and daughter Blanche at bedside after explaining CM role and obtaining verbal consent. Patient is currently sedated on vent. Patient lives at home with his mother and plans to return there upon discharge. Dasha states that she recently moved the patient in with her in [place] from [place]. CM discussed availability / needs of home health and medical equipment. Dasha states that the patient has a cane but no other medical equipment. Dasha states he may need home health upon discharge. Patient may require Hemodialysis as an outpatient CM will continue to follow and assist as needed with discharge planning / needs. Rn Vascular: Amelia Fontaine DCPIA - Discharge Planning Initial Assessment Updated by [id number]: Amelia Fontaine on 12/31/18 3:47 pm * Is the patient Alert and Oriented? No * How many steps to enter\exit or inside your home? * PCP Faith Paige APN * Pharmacy [facility] currently doesn't have one in [place] * Preadmission Environment Home with Family * ADLs Independent * Equipment Cane * List name and contact numbers for known caregivers / representatives who currently or will assist patient after discharge: Dasha Ellington - mother- [phone], Blanche Aguilar - daughter- [phone] * Verbal permission to speak to the caregivers and representatives has been obtained from the patient. N/A * Community resources currently utilized None * Additional services required to return to the preadmission environment? No * Can the patient safely return to the preadmission environment? Yes * Has this patient been hospitalized within the prior 30 days at any hospital? No Coverage Notice Reviewer: [id number] Rishi Sanders Notice Issued Date-Time: 01/09/2019 11:05 Notice Type: IM Discharge Notice Notice Delivered To: Patient Relationship to Patient: Marine Fuel Dock Attendant Name: Delivery Method: HAND - Hand Delivered Dorie Days: Prior Verbal Notification: Recipient Understood Notice: Yes Recipient Signature: Yes Med Rec Note Co-signed by Attending: Coverage Notice Comment: Last DP export: 01/24/19 3:53 p Patient Name: GUMARO EVANS Page [id number] at 1716 All edits/amendments must be made on the electronic document DICTATION DATE: 01/24/191715 GEAR SHAPER: ROBERTO 01/24/191715 RPT#: [id number] DC DATE: STATUS: ADM IN [facility] [address] [place] [address] END OF REPORT
--- NOTE | 2019-01-24 17:24 | MORECARE ---
CASE MANAGEMENT DISCHARGE SUMMARY PATIENT: GUMARO EVANS UNIT: [id number] ADM DATE: 12/29/18 AGE: 63 : 51 SEX: M ROOM/BED: D.1285 AUTHOR: KEITH,DOC PHYSICIAN: REFERRING PHYSICIAN: KEMAL RALPH MD DATE OF SERVICE: 01/24/19 Discharge Plan Patient Name: GUMARO EVANS Facility[facility]:[place] : 1955 Planned Disposition: Assisted Facility Anticipated Discharge Date: 01/27/19 Discharge Date: Expected LOS: 29 Initial Reviewer: [id number] Initial Review Date: 12/31/2018 Generated: 01/24/19 6:24 pm Comments DCP- Discharge Planning Updated by [id number]: Karlos Sanders on 01/24/19 4:[address] Patient Name: GUMARO EVANS Encounter No: [id number] : 1955 Primary Insurance: [facility] MEDICARE SOLUTIONS Anticipated DC Date: 01-27-2019 Planned Disposition: Assisted Facility External Planned Provider: [facility] [place] MEDICARE REHAB BED DCP follow-up note: CM SPOKE TO PT IN ROOM REGARDING NEED FOR LONGTERM REHAB, DISCUSSED DECREASED FUNCTIONING AND THAT INPATIENT REHAB MAY ACCEPT AT A LATER DATE IF PT CAN TOLERATE THREE HOURS OF THERAPY. PT REPORTS UNDERSTANDING. CM PROVIDED PT WITH LISTING OF LONGTERM FACILITIES IN AND AROUND [place]. PT WANTS REFERRED TO [facility] IN [place], CHOICE SIGNED. PT ASKED CM TO CALL AND NOTIFY HIS MOTHER. CM CALLED AND LEFT MESSAGE FOR PT''S MOTHER, HUGH, . SOCIAL SECURITY NUMBER OBTAINED AND PROVIDED TO REGISTRATION FOR UPDATE. CM NOTIFIED RODRIGO OF [facility] OF REFERRAL AT [phone], FAXED REFERRAL TO [facility] VIA R[employer]RIG[facility] AT [phone]. CM WAITING ADMISSION DETERMINATION FROM [facility] IN [place]. Karlos Sanders, CASE MANAGEMENT DCP- Discharge Planning Updated by [id number]: Pebbles Muniz on 01/19/19 2:[address] Order received stating the the patient [place] [facility] [place] [place]. Chart reviewed and cm noted this patient has already been accepted and auth by insurance has been given for the patient to go to [facility]. This is a managed policy with requires rehab to call to verify auth still good and notify them of admit date. No further consults are required as plan is in place and all arrangements are pending a discharge order from physician. Pebbles Muniz RN, [facility] [phone] DCP- Discharge Planning Updated by [id number]: Karlos Sanders on 01/09/19 12:[address] Patient Name: GUMARO EVANS Encounter No: [id number] : 1955 Primary Insurance: [facility] MEDICARE SOLUTIONS Anticipated DC Date: 01-09-2019 Planned Disposition: Inpatient Rehab External Planned Provider: [facility] DCP follow-up note: CM SPOKE TO [facility], INSURANCE AUTHORIZATION FOR REHAB RECEIVED. CM NOTIFIED ALBA ADAM. WHEN DISCHARGED, NOTIFY [facility] INPAT[facility] WHO WILL THEN CONTACT [facility] NURSE WITH ROOM NUMBER WHEN READY TO ACCEPT PT AND NURSE REPORT. Karlos Sanders, CASE MANAGEMENT DCP- Discharge Planning Updated by [email or web address]: Karlos Sanders on 01/09/19 10:[address] Patient Name: GUMARO EVANS Encounter No: [id number] : 1955 Primary Insurance: [facility] MEDICARE SOLUTIONS Anticipated DC Date: 01-09-2019 Planned Disposition: Inpatient Rehab External Planned Provider: [facility] DCP follow-up note: CM SPOKE TO AUXILIARY PLANT OPERATOR SEJAL FONTAINE WHO ADVISED CM THAT PT IS PENDING INSURANCE AUTHORIZATION FOR INPATIENT REHAB AT [place]. CM SPOKE TO [facility] WHO ADVISED THAT AUTHORIZATION WAS SUBMITTED YESTERDAY TO PT'S INSURANCE COMPANY, THEY ARE WAITING INSURANCE DECISION. CM SPOKE TO PT IN ROOM, PT IS WILLING FOR REHAB AT [place] WITH PLAN TO MOVE IN WITH HIS MOTHER AT DISCHARGE FROM REHAB. IMPORTANT MESSAGE FROM MEDICARE PROVIDED AND EXPLAINED. CM WAITING INSURANCE AUTHORIZATION FOR INPATIENT REHAB AT [facility]. Karlos Sanders CASE MANAGEMENT DCP- Discharge Planning Updated by [id number]: Amelia Fontaine on 12/31/18 2:[address] Patient Name: GUMARO EVANS Admission Status: Elective Accout number: [id number] Admission Date: 12-29-2018 : 1955 Admission Diagnosis: Attending: KEMAL RALPH Current LOS: 2 Anticipated DC Date: Planned Disposition: Home Primary Insurance: [facility] MEDICARE SOLUTIONS Discharge Planning Comments: CM met with patient's Mother Dasha and daughter Blanche at bedside after explaining CM role and obtaining verbal consent. Patient is currently sedated on vent. Patient lives at home with his mother and plans to return there upon discharge. Dasha states that she recently moved the patient in with her in [place] from [place]. CM discussed availability / needs of home health and medical equipment. Dasha states that the patient has a cane but no other medical equipment. Dasha states he may need home health upon discharge. Patient may require Hemodialysis as an outpatient CM will continue to follow and assist as needed with discharge planning / needs. Turbinated Bone Grinder: Amelia HARKINSA - Discharge Planning Initial Assessment Updated by [id number]: Amelia Fontaine on 12/31/18 3:47 pm * Is the patient Alert and Oriented? No * How many steps to enter\exit or inside your home? * PCP Faith Paige APN * Pharmacy [facility] currently doesn't have one in [place] * Preadmission Environment Home with Family * ADLs Independent * Equipment Cane * List name and contact numbers for known caregivers / representatives who currently or will assist patient after discharge: Dasha Ellington - mother- [phone], Blanche Aguilar - daughter- [phone] * Verbal permission to speak to the caregivers and representatives has been obtained from the patient. N/A * Community resources currently utilized None * Additional services required to return to the preadmission environment? No * Can the patient safely return to the preadmission environment? Yes * Has this patient been hospitalized within the prior 30 days at any hospital? No Coverage Notice Reviewer: [id number] Sanders Notice Issued Date-Time: 01/09/2019 11:05 Notice Type: IM Discharge Notice Notice Delivered To: Patient Relationship to Patient: Silverware Cleaner Name: Delivery Method: HAND - Hand Delivered Dorie Days: Prior Verbal Notification: Recipient Understood Notice: Yes Recipient Signature: Yes Med Rec Note Co-signed by Attending: Coverage Notice Comment: Reviewer: [id number] Sanders Notice Issued Date-Time: 01/24/2019 16:25 Notice Type: Patient Choice Letter Notice Delivered To: Patient Relationship to Patient: Silverware Cleaner Name: Delivery Method: HAND - Hand Delivered Dorie Days: Prior Verbal Notification: Recipient Understood Notice: Yes Recipient Signature: Yes Med Rec Note Co-signed by Attending: Coverage Notice Comment: RICHARD GAMBINO Last DP export: 01/24/19 4:16 p Patient Name: GUMARO EVANS Page [id number] at 1724 All edits/amendments must be made on the electronic document DICTATION DATE: 01/24/191723 ORNAMENTAL PAINTER: ROBERTO 01/24/191723 RPT#: [id number] [place] DATE: STATUS: ADM IN [facility] [address] [place] [address] END OF REPORT
--- NOTE | 2019-01-24 19:15 | NUR ---
EVENING ROUNDS COMPLETE, PT LAYING IN BED. NO C/O PAIN AT THIS TIME. NO SIGNS OF DISTRESS. CONT WITH POC.
[2019-01-24 20:00] VITALS: BP 150/90
[2019-01-25] VITALS: BP 142/87
[2019-01-25 04:00] VITALS: BP 144/90
[2019-01-25 05:01] LABS: BASOPHILS 0 % (0-2); EOSINOPHILS 0 % (0-7); HEMATOCRIT 29.5 % (42.0-54.0); HEMOGLOBIN 9.5 g/dL (13.5-17.5); IMMATURE GRANULOCYTES 0.3 % (0-5); LYMPHOCYTES 6.7 % (15-50); MCHC 32.2 g/dL (31.0-37.0); MCV 89.9 fL (80.0-100.0); MONOCYTES 2.9 % (2-11); NEUTROPHILS 90.1 % (40-80); RBC 3.28 10x6/uL (4.20-6.10); WBC 3.5 10x3/uL (4.8-10.8)
[2019-01-25 05:03] LABS: PLATELET COUNT 31 10x3/uL (130-400)
[2019-01-25 05:04] LABS: PLATELET ESTIMATE DECREASED
[2019-01-25 05:16] LABS: ALBUMIN 2.8 g/dL (3.4-5.0); ANION GAP 9.9 mmol/L (8-16); BILIRUBIN - TOTAL 2.08 mg/dL (0.2-1.3); CALCIUM 8.1 mg/dL (8.5-10.1); CARBON DIOXIDE 31.1 mmol/L (21.0-32.0); CREATININE - SERUM 1.5 mg/dL (0.6-1.3); MAGNESIUM - SERUM 2.1 mg/dL (1.8-2.4); PROTEIN - SERUM 5.7 g/dL (6.4-8.2)
--- NOTE | 2019-01-25 07:05 | NUR ---
REPORT RECEIVED. HE IS ALERT ANSWERS TO NAME. OSMOLITE 1.0 INFUSING PER PEG TUBE HOB UP. H2O FLUSHES PER ORDERS. F/C PATENT WITH YELLOW URINE DRAINING. O2 ON WITH RESP EVEN WITHOUT LABOR. RIGHT CVL SALINE LOCK INTACT. HE HAS SCAB ON HIS UPPER LIP. BED IN LOWEST POSITION AND LOCKED. CAREPLAN REVIEW DONE WITH SAFETY PRECAUTIONS IN PLACE.
[2019-01-25 09:14] VITALS: BP 180/98
[2019-01-25 12:58] VITALS: BP 175/91
[2019-01-25 16:49] VITALS: BP 178/83
--- NOTE | 2019-01-25 18:12 | NUR ---
HE HAS NO CHANGES NOTED. O2 IS ON VIA VM TO GIVE LIP REST FROM N/C. H20 FLUSHES OF 200CC WATER [id number] PER PEG TUBE PER ORDERS. HOB UP. HE WAS SPOON FED MEALS TODAY AND ATE ABOUT 25%. REMAINS ON 1ST STEP OVERLAY. CALOSEPTINE TO COCCYX. NO C/O. CL IN REACH
--- NOTE | 2019-01-25 19:30 | NUR ---
RECEIVED REPORT, WILL ASSUME CARE OF PT, RECEIVING BREATHING TREATMENT, 02-2L. [id number], PEG TUBE-OSMOLITE 1.0 @50CC-FLUSH q4-200ML, BED IS LOW, SRX2. CALL LIGHT IN REACH, WILL CONTINUE PLAN OF CARE
--- NOTE | 2019-01-25 21:10 | NUR ---
PM MEDS CRUSH AN GIVEN IN PEG TUBE, [id number] 10 UNITS OF HUMULIN R. 10 UNITS OF LANTUS GIVEN,
[2019-01-25 21:26] VITALS: BP 150/80
[2019-01-26 00:05] VITALS: BP 140/80
--- NOTE | 2019-01-26 03:01 | NUR ---
CHANGE TUBE FEEDING BAG
[2019-01-26 04:22] LABS: BASOPHILS 0.3 % (0-2); EOSINOPHILS 0 % (0-7); HEMATOCRIT 28.4 % (42.0-54.0); HEMOGLOBIN 9.2 g/dL (13.5-17.5); IMMATURE GRANULOCYTES 0.3 % (0-5); LYMPHOCYTES 5.5 % (15-50); MCH 29.1 pg (26.0-34.0); MCHC 32.4 g/dL (31.0-37.0); MCV 89.9 fL (80.0-100.0); MONOCYTES 5.5 % (2-11); NEUTROPHILS 88.4 % (40-80); RBC 3.16 10x6/uL (4.20-6.10); WBC 3.7 10x3/uL (4.8-10.8)
[2019-01-26 04:35] LABS: PLATELET COUNT 32 10x3/uL (130-400)
[2019-01-26 04:39] LABS: ALBUMIN 2.7 g/dL (3.4-5.0); ANION GAP 8.2 mmol/L (8-16); BILIRUBIN - TOTAL 1.88 mg/dL (0.2-1.3); CALCIUM 7.9 mg/dL (8.5-10.1); CARBON DIOXIDE 31.7 mmol/L (21.0-32.0); CREATININE - SERUM 1.4 mg/dL (0.6-1.3); MAGNESIUM - SERUM 1.8 mg/dL (1.8-2.4); POTASSIUM - SERUM 3.9 mmol/L (3.5-5.1); PROTEIN - SERUM 5.6 g/dL (6.4-8.2)
--- NOTE | 2019-01-26 05:18 | NUR ---
I have reviewed this patient and I concur with the Shift Assessment completed by the Licensed Practical Nurse today this shift.
[2019-01-26 06:09] VITALS: BP 143/82
--- NOTE | 2019-01-26 08:00 | NUR ---
PATIENT IS SITTING UP IN BED WATCHING TV AND EATTING ICECREAM. HE IS WEARING A SIMPLE MASK, AND MOVES IT TO THE SIDE WHEN HE TAKES BITES. THE SORE UNDER HIS NOSE IS HEALING WELL. WASHED HIS FACE PATIENT REQUESTED.
[2019-01-26 08:08] VITALS: BP 171/105
[2019-01-26 11:40] VITALS: BP 165/91
--- NOTE | 2019-01-26 13:46 | NUR ---
REMOVED XIAO CATHETER. REMOVED 20 ML STERILE WATER FROM THE BALLOON. REMOVED THE CATHETER AT NO DISCOMFORT TO THE PATIENT. 400 ML OF CLEAR YELLOW URINE. REMOVED FROM THE XIAO BAG.
--- NOTE | 2019-01-26 15:18 | NUR ---
THERE IS AN ORDER TO REMOVE THE CVL. HOWEVER, THE PATIENT HAS NO VEINS, AND THERE IS ALSO AN ORDER BY DR WALTERS TO TRANSFUSE PLATELETS TOMORROW. SO , WE SHOULD WAIT UNTIL AFTER THE TRANSFUSON TO REMOVE THE CVL, IT IS STILL WORKING GREAT AND THE DRESSING IS CLEAN DRY AND INTACT. I JUST PUT A FRESH DRESSING ON.
[2019-01-26 16:52] VITALS: BP 173/104
--- NOTE | 2019-01-26 18:39 | NUR ---
PATIENT IS SITTING UP IN BED WATCHING TV. HE DENIES ANY NEEDS AT THIS TIME. CALLED ENZO AND KOLBY TO LEAVE THE CVL IN AT THIS TIME BECASUE HE WILL NEED PLATELETS TOMORROW.
--- NOTE | 2019-01-26 19:30 | NUR ---
ALERT AND AWAKE AND MAKES NEEDS KNOWN BED IS LOW AND LOCKED AND CALL LIGHT IN REACH RESPITORY WITH PT SO I WILL EXAMINE MORE FULLY LATER
[2019-01-26 20:00] VITALS: BP 153/101
[2019-01-27] VITALS: BP 151/90
[2019-01-27 04:00] VITALS: BP 150/88
--- NOTE | 2019-01-27 04:48 | NUR ---
I have reviewed this patient and I concur with the Shift Assessment completed by the Licensed Practical Nurse today this shift.
[2019-01-27 05:25] LABS: BASOPHILS 0 % (0-2); EOSINOPHILS 0 % (0-7); HEMATOCRIT 27.8 % (42.0-54.0); HEMOGLOBIN 9.1 g/dL (13.5-17.5); IMMATURE GRANULOCYTES 0.3 % (0-5); MCH 29.1 pg (26.0-34.0); MCHC 32.7 g/dL (31.0-37.0); MCV 88.8 fL (80.0-100.0); MONOCYTES 5.7 % (2-11); RBC 3.13 10x6/uL (4.20-6.10); WBC 3.5 10x3/uL (4.8-10.8)
[2019-01-27 05:26] LABS: PLATELET COUNT 31 10x3/uL (130-400)
[2019-01-27 06:05] LABS: ALBUMIN 2.7 g/dL (3.4-5.0); ANION GAP 10.2 mmol/L (8-16); BILIRUBIN - TOTAL 2.04 mg/dL (0.2-1.3); CALCIUM 7.9 mg/dL (8.5-10.1); CARBON DIOXIDE 29.6 mmol/L (21.0-32.0); CREATININE - SERUM 1.4 mg/dL (0.6-1.3); MAGNESIUM - SERUM 1.7 mg/dL (1.8-2.4); POTASSIUM - SERUM 3.8 mmol/L (3.5-5.1); PROTEIN - SERUM 5.6 g/dL (6.4-8.2)
[2019-01-27 07:42] LABS: PLATELET ESTIMATE DECREASED
--- NOTE | 2019-01-27 07:45 | NUR ---
ACKNOWLEDGED BLOOD SUGAR OF57. PATIENT IS SITTING UP IN BED EATTING ICE CREAM. HE REPORTS FEELING GREAT. BREAKFAST IS BEING BROUGHT IN AND HE IS INTERESTED IN EATTING.
[2019-01-27 08:17] VITALS: BP 168/89
--- NOTE | 2019-01-27 10:31 | NUR ---
PATIENT IS SITTING UP IN BED AT THIS TIME. HE DENIES ANY NEEDS AT THIS TIME.
--- NOTE | 2019-01-27 10:43 | MORECARE ---
CASE MANAGEMENT DISCHARGE SUMMARY PATIENT: GUMARO EVANS UNIT: [id number] ADM DATE: 12/29/18 AGE: 63 : 51 SEX: M ROOM/BED: D.4782 AUTHOR: KEITH,DOC PHYSICIAN: REFERRING PHYSICIAN: KEMAL RALPH MD DATE OF SERVICE: 01/27/19 Discharge Plan Patient Name: GUMARO EVANS Facility: [facility]:[place] : 1955 Planned Disposition: Group Home Facility Anticipated Discharge Date: 01/27/19 Discharge Date: Expected LOS: 29 Initial Reviewer: [id number] Initial Review Date: 12/31/2018 Generated: 01/27/19 11:43 am Comments DCP- Discharge Planning Updated by [email or web address]: Karlos Sanders on 01/27/19 9:[address] Patient Name: GUMARO EVANS Encounter No: [id number] : 1955 Primary Insurance: [facility] MEDICARE SOLUTIONS Anticipated DC Date: 01-27-2019 Planned Disposition: Group Home Facility External Planned Provider: [facility], [place] - Medicare Rehab Bed DCP follow-up note: FAXED REFERRAL UPDATE TO [facility]IA [employer] AT [phone]. CM WAITING ADMISSION DETERMINATION FROM [facility] IN [place] INSURANCE AUTHORIZATION FOR REHAB SERVICES FROM INSURANCE. Karlos Sanders, CASE MANAGEMENT. DCP- Discharge Planning Updated by [email or web address]: Karlos Sanders on 01/24/19 4:[address] Patient Name: GUMARO EVANS Encounter No: [id number] : 1955 Primary Insurance: [facility] MEDICARE SOLUTIONS Anticipated DC Date: 01-27-2019 Planned Disposition: Group Home Facility External Planned Provider: [facility] [place], MEDICARE REHAB BED DCP follow-up note: CM SPOKE TO PT IN ROOM REGARDING NEED FOR LONG TERM REHAB, DISCUSSED DECREASED FUNCTIONING AND THAT INPATIENT REHAB MAY ACCEPT AT A LATER DATE IF PT CAN TOLERATE THREE HOURS OF THERAPY. PT REPORTS UNDERSTANDING. CM PROVIDED PT WITH LISTING OF LONG TERM FACILITIES IN AND AROUND [place]. PT WANTS REFERRED TO [facility] IN [place], CHOICE SIGNED. PT ASKED CM TO CALL AND NOTIFY HIS MOTHER. CM CALLED AND LEFT MESSAGE FOR PT''S MOTHER, HUGH, . SOCIAL SECURITY NUMBER OBTAINED AND PROVIDED TO REGISTRATION FOR UPDATE. CM NOTIFIED RODRIGO OF [facility] OF REFERRAL AT [phone], FAXED REFERRAL TO [facility]IA [employer] AT [phone]. CM WAITING ADMISSION DETERMINATION FROM [facility] IN [place]. Karlos Sanders CASE MANAGEMENT DCP- Discharge Planning Updated by [id number]: Pebbles Muniz on 01/19/19 2:[address] Order received stating the the [place]. Chart reviewed and cm noted this patient has already been accepted and auth by insurance has been given for the patient to go to [facility]. This is a managed policy with requires rehab to call to verify auth still good and notify them of admit date. No further consults are required as plan is in place and all arrangements are pending a discharge order from physician. Pebbles Muniz RN, [facility] [phone] DCP- Discharge Planning Updated by [email or web address]: Karlos Sanders on 01/09/19 12:[address] Patient Name: GUMARO EVANS Encounter No: [id number] : 1955 Primary Insurance: [facility] MEDICARE SOLUTIONS Anticipated DC Date: 01-09-2019 Planned Disposition: Inpatient Rehab External Planned Provider: [facility] DCP follow-up note: CM SPOKE TO [facility], INSURANCE AUTHORIZATION FOR REHAB RECEIVED. CM NOTIFIED ALBA ADAM. WHEN DISCHARGED, NOTIFY [facility] INPATIENT RE[facility] WHO WILL THEN CONTACT MED 2 NURSE WITH ROOM NUMBER WHEN READY TO ACCEPT PT AND NURSE REPORT. Karlos Sanders CASE MANAGEMENT DCP- Discharge Planning Updated by [id number]: Karlos Sanders on 01/09/19 10:[address] Patient Name: GUMARO EVANS Encounter No: [id number] : 1955 Primary Insurance: [facility] MEDICARE SOLUTIONS Anticipated DC Date: 01-09-2019 Planned Disposition: Inpatient Rehab External Planned Provider: [facility] DCP follow-up note: CM SPOKE TO PLASMA CENTER TECHNICIAN SEJAL FONTAINE WHO ADVISED CM THAT PT IS PENDING INSURANCE AUTHORIZATION FOR INPATIENT REHAB AT [place]. CM SPOKE TO [facility] WHO ADVISED THAT AUTHORIZATION WAS SUBMITTED YESTERDAY TO PT'S INSURANCE COMPANY, THEY ARE WAITING INSURANCE DECISION. CM SPOKE TO PT IN ROOM, PT IS WILLING FOR REHAB AT [place] WITH PLAN TO MOVE IN WITH HIS MOTHER AT DISCHARGE FROM REHAB. IMPORTANT MESSAGE FROM MEDICARE PROVIDED AND EXPLAINED. CM WAITING INSURANCE AUTHORIZATION FOR INPATIENT REHAB AT [facility]. Karlos Sanders, CASE MANAGEMENT DCP- Discharge Planning Updated by [id number]: Amelia Fontaine on 12/31/18 2:[address] Patient Name: GUMARO EVANS Admission Status: Elective Accout number: [id number] Admission Date: 12-29-2018 : 1955 Admission Diagnosis: Attending: KEMAL RALPH Current LOS: 2 Anticipated DC Date: Planned Disposition: Home Primary Insurance: [facility] MEDICARE SOLUTIONS Discharge Planning Comments: CM met with patient's Mother Dasha and daughter Blanche at bedside after explaining CM role and obtaining verbal consent. Patient is currently sedated on vent. Patient lives at home with his mother and plans to return there upon discharge. Dasha states that she recently moved the patient in with her in [place] from [place]. CM discussed availability / needs of home health and medical equipment. Dasha states that the patient has a cane but no other medical equipment. Dasha states he may need home health upon discharge. Patient may require Hemodialysis as an outpatient CM will continue to follow and assist as needed with discharge planning / needs. Immunology Specialist: Amelia Fontaine DCPIA - Discharge Planning Initial Assessment Updated by [id number]: Amelia Fontaine on 12/31/18 3:47 pm * Is the patient Alert and Oriented? No * How many steps to enter\exit or inside your home? * PCP Faith Paige APN * Pharmacy [facility] currently doesn't have one in [place] * Preadmission Environment Home with Family * ADLs Independent * Equipment Cane * List name and contact numbers for known caregivers / representatives who currently or will assist patient after discharge: Dasha Ellington - mother- [phone], Blanche Aguilar - daughter- [phone] * Verbal permission to speak to the caregivers and representatives has been obtained from the patient. N/A * Community resources currently utilized None * Additional services required to return to the preadmission environment? No * Can the patient safely return to the preadmission environment? Yes * Has this patient been hospitalized within the prior 30 days at any hospital? No Coverage Notice Reviewer: [id number] Rishi Sanders Notice Issued Date-Time: 01/09/2019 11:05 Notice Type: IM Discharge Notice Notice Delivered To: Patient Relationship to Patient: Watch And Clock Repair Clerk Name: Delivery Method: HAND - Hand Delivered Dorie Days: Prior Verbal Notification: Recipient Understood Notice: Yes Recipient Signature: Yes Med Rec Note Co-signed by Attending: Coverage Notice Comment: Reviewer: [id number] Rishi Sanders Notice Issued Date-Time: 01/24/2019 16:25 Notice Type: Patient Choice Letter Notice Delivered To: Patient Relationship to Patient: Watch And Clock Repair Clerk Name: Delivery Method: HAND - Hand Delivered Dorie Days: Prior Verbal Notification: Recipient Understood Notice: Yes Recipient Signature: Yes Med Rec Note Co-signed by Attending: Coverage Notice Comment: RICHARD GAMBINO Last DP export: 01/24/19 4:24 p Patient Name: GUMARO EVANS Page [id number] at 1043 All edits/amendments must be made on the electronic document DICTATION DATE: 01/27/19 1043 DIRECTOR DESIGN: ROBERTO 01/27/19 1043 RPT#: [id number] DC DATE: STATUS: ADM IN [facility] [address] [place] [address] END OF REPORT
[2019-01-27 12:10] VITALS: BP 156/74
--- NOTE | 2019-01-27 13:49 | NUR ---
CALLED DR WALTERS AND ASKED IF WE WERE GOING TO GIVE PLATELETS AND SHE SAID NOT TODAY, HE IS DOING OK, AND MAY HAVE TO GIVE PLATELETS TOMORROW. I TOLD HER THAT ENZO AND DR LEMONS WERE PLANNING TO DC THAT CVL, AND THAT I HAD CALLED THEM TO SEE IF IT WOULD BE OK TO LEAVE IT IN BECASUE HE MAY BE NEEDING PLATELETS AGAIN AND HAS NO OTHER ACCESS. ENZO AGREED THAT IT WOULD BE OK TO LEAVE IT IN FOR NOW. ALSO, THE PATIENT HAS EDEMA IN HIS ARMS BILATERALLY AND IT IS NOT A BLOOD CLOT. DR WALTERS SAID THAT IT IS NOT A BLOOD CLOT, AND THAT IT IS OK FOR HIM TO GET UP WITH PHYSICAL THERAPY. I CALLED AND TOLD PHYSICAL THERAPY.
--- NOTE | 2019-01-27 14:19 | NUR ---
Nutrition Follow-up: Pt sleeping at time of visit. Osmolite 1.0 running at 50 mL/hr. Noted flushes recently increased to 200 mL q 4 hrs 2/2 hypernatremia. Diet: Osmolite 1.0 @ 50 mL/hr Low Na puree with nectar thick liquids, Ensure with lunch PO intake: 22% avg x 7 meals No new wt Last BM: 01/26 Labs noted: Na 141, Alb 2.7, Mg 1.7, Ca 7.9, Glu 163 Meds reviewed Continue current TF/diet as tolerated. Rec monitor Na/fluid status and adjust flushes as needed. RD following.
--- NOTE | 2019-01-27 14:29 | NUR ---
OT NOTE: PT PERFORMED MUCH BETTER TODAY. ABLE TO ROLL FROM SIDE TO SIDE WITH MIN/MOD ASSIST. SUPINE TO SIT WITH MAX ASSIST. PT ABLE TO MAINTAIN BALANCE ON EOB AND SCOOT SELF TO EOB WITHOUT ASSIST TODAY. PERFORMED UE AND LE EXS WITH MUCH IMPROVEMENT AND INCREASED STRENGTH. ABLE TO STAND WITH MOD ASSIST X 2 AND BEAR WT THROUGH LES. STRONGER VOICING ALSO NOTED. VENECIA AUSTIN, OTR/L
[2019-01-27 15:31] VITALS: BP 148/99
--- NOTE | 2019-01-27 19:00 | NUR ---
PATIENT LAYING IN BED. NO COMPLAINTS AT THIS TIME. NO DISTRESS NOTED.
[2019-01-27 20:00] VITALS: BP 155/85
--- NOTE | 2019-01-28 01:45 | NUR ---
PATIENT LAYING IN BED. PATIENT ASKED FOR HELP TO CALL MOTHER. HELP PROVIDED. NO COMPLAINTS AT THIS TIME. NO DISTRESS NOTED.
[2019-01-28 04:00] VITALS: BP 158/91
[2019-01-28 06:57] LABS: ANION GAP 9.2 mmol/L (8-16); CALCIUM 8.2 mg/dL (8.5-10.1); CARBON DIOXIDE 30.6 mmol/L (21.0-32.0); CREATININE - SERUM 1.3 mg/dL (0.6-1.3); PHOSPHOROUS 2.3 mg/dL (2.5-4.9); POTASSIUM - SERUM 3.8 mmol/L (3.5-5.1)
[2019-01-28 07:04] LABS: BASOPHILS 0 % (0-2); EOSINOPHILS 0.2 % (0-7); HEMATOCRIT 30.4 % (42.0-54.0); HEMOGLOBIN 9.8 g/dL (13.5-17.5); LYMPHOCYTES 9.4 % (15-50); MCH 28.9 pg (26.0-34.0); MCHC 32.2 g/dL (31.0-37.0); MCV 89.7 fL (80.0-100.0); MONOCYTES 5.8 % (2-11); NEUTROPHILS 84.6 % (40-80); RBC 3.39 10x6/uL (4.20-6.10); WBC 4.1 10x3/uL (4.8-10.8)
[2019-01-28 07:18] LABS: PLATELET COUNT 39 10x3/uL (130-400)
[2019-01-28 09:29] VITALS: BP 151/88
[2019-01-28 10:28] LABS: PLATELET ESTIMATE DECREASED
[2019-01-28 10:53] LABS: ROULEAUX OCC
[2019-01-28 11:58] VITALS: BP 143/84
--- NOTE | 2019-01-28 13:53 | NUR ---
OT NOTE: PT UP IN CHAIR; REQUESTING TO GO BACK TO BED; PT ABLE TO PERFORM UE/LE AROM BUT REMAINS VERY WEAK. 3 ATTEMPTS TO HAVE PT STAND WITH WALKER WITH MAX ASSIST X 2.. PT UNABLE TO STRAIGHTEN KNEES TODAY AND REQUIRED MAX ASSIST X 2 FOR LIFT FROM CHAIR TO BED; BED MOB WITH MOD ASSIST AND PT IMPROVING WITH THIS. HE IS ABLE TO HOLD ON TO HAND RAILS AND MAINTAIN SIDE LIEING WITHOUT ASSIST. VENECIA AUSTIN, OTR/L
[2019-01-28 14:56] VITALS: BP 158/91
--- NOTE | 2019-01-28 16:41 | NUR ---
OT NOTE: PT COMPLETED BED MOB WITH MOD A/MAX A. PT REQUIRED MAX A FOR SUPINE TO SIT. PT CAN SIDE ROLL USING RAILS WITH MOD A. PT COMPLETED EOB SITTING BALANCE TO INCREASE CORE STRENGTH WITH SBA. PT COMPLETED HYGIENE TASKS WITH MAX A. THANK YOU, BONY MCKEON
--- NOTE | 2019-01-28 19:25 | NUR ---
PT CARE ASSUMED. RR EVEN AND UNLABORED. NO S/S OF DISTRESS NOTED. PT ON PHONE WITH BROTHER. NO NEEDS EXPRESSED. WILL CPOC.
[2019-01-28 20:00] VITALS: BP 153/94
[2019-01-29 04:00] VITALS: BP 144/88
[2019-01-29 05:51] LABS: BASOPHILS 0 % (0-2); EOSINOPHILS 0.2 % (0-7); HEMATOCRIT 29.3 % (42.0-54.0); HEMOGLOBIN 9.6 g/dL (13.5-17.5); IMMATURE GRANULOCYTES 0.2 % (0-5); LYMPHOCYTES 7.2 % (15-50); MCH 29.3 pg (26.0-34.0); MCHC 32.8 g/dL (31.0-37.0); MCV 89.3 fL (80.0-100.0); MONOCYTES 5.8 % (2-11); NEUTROPHILS 86.6 % (40-80); RBC 3.28 10x6/uL (4.20-6.10); WBC 4.3 10x3/uL (4.8-10.8)
[2019-01-29 05:56] LABS: PLATELET COUNT 36 10x3/uL (130-400)
[2019-01-29 05:59] LABS: ANION GAP 9.7 mmol/L (8-16); CALCIUM 7.9 mg/dL (8.5-10.1); CREATININE - SERUM 1.3 mg/dL (0.6-1.3); PHOSPHOROUS 2.6 mg/dL (2.5-4.9); POTASSIUM - SERUM 3.7 mmol/L (3.5-5.1)
--- NOTE | 2019-01-29 07:09 | MORECARE ---
CASE MANAGEMENT DISCHARGE SUMMARY PATIENT: GUMARO EVANS UNIT: [id number] ADM DATE: 12/29/18 AGE: 63 : [birth year] SEX: M ROOM/BED: D.2139 AUTHOR: KEITHDOC PHYSICIAN: REFERRING PHYSICIAN: KEMAL RALPH MD DATE OF SERVICE: 01/29/19 Discharge Plan Patient Name: GUMARO EVANS Facility: [facility]:[place] : 1955 Planned Disposition: Senior Living Facility Anticipated Discharge Date: 01/27/19 Discharge Date: Expected LOS: 29 Initial Reviewer: [id number] Initial Review Date: 12/31/2018 Generated: 01/29/19 8:08 am Comments DCP- Discharge Planning Updated by [id number]: Karlos Sanders on 01/29/19 6:[address] Patient Name: GUMARO EVANS Encounter No: [id number] : 1955 Primary Insurance: [facility] MEDICARE SOLUTIONS Anticipated DC Date: 01-27-2019 Planned Disposition: Senior Living Facility External Planned Provider: KONRAD ASHLEYRADO, MEDICARE REHAB BED LATE ENTRAY FROM 01-28-19. DCP follow-up note: CM [facility]. PT NOTIFIED AND IN AGREEMENT WITH REHAB AT [facility]. ALBA VILLALOBOS NOTIFIED. FOR DISCHARGE, [facility] AT [phone]; [facility], [phone]. KONRAD RAMIREZ TO ARRANGE VAN TRANSPORT IF PT IS ABLE TO SIT SAFELY FOR DURATION OF TRANSPORT. NAIN FORBES DCP- Discharge Planning Updated by [id number]: Karlos Sanders on 01/27/19 9:[address] Patient Name: GUMARO EVANS Encounter No: [id number] : 1955 Primary Insurance: [facility] MEDICARE SOLUTIONS Anticipated DC Date: 01-27-2019 Planned Disposition: Senior Living Facility External Planned Provider: Jessica Jhaveri - Medicare Rehab Bed DCP follow-up note: FAXED REFERRAL UPDATE TO [facility] AT [phone]. CM WAITING ADMISSION DETERMINATION FROM [facility] IN [place] INSURANCE AUTHORIZATION FOR REHAB SERVICES FROM INSURANCE. Karlos Sanders CASE MANAGEMENT. DCP- Discharge Planning Updated by [id number]: Karlos Sanders on 01/24/19 4:[address] Patient Name: GUMARO EVANS Encounter No: [id number] : 1955 Primary Insurance: [facility] MEDICARE SOLUTIONS Anticipated DC Date: 01-27-2019 Planned Disposition: Senior Living Facility External [facility] REHAB BED DCP follow-up note: CM SPOKE TO PT IN ROOM REGARDING NEED FOR LONG TERM REHAB, DISCUSSED DECREASED FUNCTIONING AND THAT INPATIENT REHAB MAY ACCEPT AT A LATER DATE IF PT CAN TOLERATE THREE HOURS OF THERAPY. PT REPORTS UNDERSTANDING. CM PROVIDED PT WITH LISTING OF LONG TERM FACILITIES IN AND AROUND [place]. [facility] [place], CHOICE SIGNED. PT ASKED CM TO CALL AND NOTIFY HIS MOTHER. CM CALLED AND LEFT MESSAGE FOR PT''S MOTHER, HUGH, . SOCIAL SECURITY NUMBER OBTAINED AND PROVIDED TO REGISTRATION FOR UPDATE. CM NOTIFIED RODRIGO OF [facility] OF REFERRAL AT [phone], FAXED REFERRAL TO [facility] VIA [employer] AT [phone]. CM WAITING ADMISSION DETERMINATION FROM [facility] [place]. Karlos Sanders, CASE MANAGEMENT DCP- Discharge Planning Updated by [id number]: Pebbles Muniz on 01/19/19 2:[address] Order received stating the the patient will need rehab or snf at [place]. Chart reviewed and cm noted this patient has already been accepted and auth by insurance has been given for the patient to go to Inpatient Rehab. This is a managed policy with requires rehab to call to verify auth still good and notify them of admit date. No further consults are required as plan is in place and all arrangements are pending a discharge order from physician. Pebbles Muniz RN, [facility] [phone] DCP- Discharge Planning Updated by [id number]: Karlos Sanders on 01/09/19 12:[address] Patient Name: GUMARO EVANS Encounter No: [id number] : 1955 Primary Insurance: [facility] MEDICARE SOLUTIONS Anticipated DC Date: 01-09-2019 Planned Disposition: Inpatient Rehab External Planned Provider: [facility] INPATIENT [facility] DCP follow-up note: CM SPOKE TO [facility], INSURANCE AUTHORIZATION FOR REHAB RECEIVED. CM NOTIFIED ALBA ADAM. WHEN DISCHARGED, NOTIFY [facility] INPATIENT REHAB WHO WILL THEN CONTACT MED 2 NURSE WITH ROOM NUMBER WHEN READY TO ACCEPT PT AND NURSE REPORT. Karlos Sanders CASE MANAGEMENT DCP- Discharge Planning Updated by [id number]: Karlos Sanders on 01/09/19 10:[address] Patient Name: GUMARO EVANS Encounter No: [id number] : 1955 Primary Insurance: [facility] MEDICARE SOLUTIONS Anticipated DC Date: 01-09-2019 Planned Disposition: Inpatient Rehab External Planned Provider: [facility] INPATIENT REH[facility] DCP follow-up note: CM SPOKE TO EXPANDER SEJAL FONTAINE WHO ADVISED CM THAT PT IS PENDING INSURANCE AUTHORIZATION FOR INPATIENT REHAB AT [place]. CM SPOKE TO [facility] WHO ADVISED THAT AUTHORIZATION WAS SUBMITTED YESTERDAY TO PT'S INSURANCE COMPANY, THEY ARE WAITING INSURANCE DECISION. CM SPOKE TO PT IN ROOM, PT IS WILLING FOR REHAB AT [place] WITH PLAN TO MOVE IN WITH HIS MOTHER AT DISCHARGE FROM REHAB. IMPORTANT MESSAGE FROM MEDICARE PROVIDED AND EXPLAINED. CM WAITING INSURANCE AUTHORIZATION FOR INPATIENT REHAB AT [facility]. Karlos Sanders CASE MANAGEMENT DCP- Discharge Planning Updated by [id number]: Amelia Fontaine on 12/31/18 2:[address] Patient Name: GUMARO EVANS Admission Status: Elective Accout number: [id number] Admission Date: 12-29-2018 : 1955 Admission Diagnosis: Attending: KEMAL RALPH Current LOS: 2 Anticipated DC Date: Planned Disposition: Home Primary Insurance: [facility] MEDICARE [employer] Discharge Planning Comments: CM met with patient's Mother Dasha and daughter Blacnhe at bedside after explaining CM role and obtaining verbal consent. Patient is currently sedated on vent. Patient lives at home with his mother and plans to return there upon discharge. Dasha states that she recently moved the patient in with her in [place] from [place]. CM discussed availability / needs of home health and medical equipment. Dasha states that the patient has a cane but no other medical equipment. Dasha states he may need home health upon discharge. Patient may require Hemodialysis as an outpatient CM will continue to follow and assist as needed with discharge planning / needs. Cabana Attendant: Amelia Fontaine CURTIS - Discharge Planning Initial Assessment Updated by [email or web address]: Amelia Fontaine on 12/31/18 3:47 pm * Is the patient Alert and Oriented? No * How many steps to enter\exit or inside your home? * PCP Faith Paige APN * Pharmacy [facility] currently doesn't have one in [place] * Preadmission Environment Home with Family * ADLs Independent * Equipment Cane * List name and contact numbers for known caregivers / representatives who currently or will assist patient after discharge: Dasha Ellington - mother- [phone], Blanche Aguilar - daughter- [phone] * Verbal permission to speak to the caregivers and representatives has been obtained from the patient. N/A * Community resources currently utilized None * Additional services required to return to the preadmission environment? No * Can the patient safely return to the preadmission environment? Yes * Has this patient been hospitalized within the prior 30 days at any hospital? 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 Name: Delivery Method: HAND - Hand Delivered Dorie Days: Prior Verbal Notification: Recipient Understood Notice: Yes Recipient Signature: Yes Med Rec Note Co-signed by Attending: Coverage Notice Comment: Reviewer: [id number] Rishi Sanders Notice Issued Date-Time: 01/24/2019 16:25 Notice Type: Patient Choice Letter Notice Delivered To: Patient Relationship to Patient: Fabric Worker Foreman Name: Delivery Method: HAND - Hand Delivered Dorie Days: Prior Verbal Notification: Recipient Understood Notice: Yes Recipient Signature: Yes Med Rec Note Co-signed by Attending: Coverage Notice Comment: JESSICA JHAVERI Last DP export: 01/27/19 9:43 a Patient Name: GUMARO EVANS Page [id number] at 0709 All edits/amendments must be made on the electronic document DICTATION DATE: 01/29/19707 TECHNICAL PROFESSIONAL: ROBERTO 01/29/19707 RPT#: [id number] DC DATE: STATUS: ADM IN [facility] [address] [place] [address] END OF REPORT
--- NOTE | 2019-01-29 07:15 | MORECARE ---
CASE MANAGEMENT DISCHARGE SUMMARY PATIENT: GUMARO EVANS UNIT: [id number] ADM DATE: 12/29/18 AGE: 63 : [birth year] SEX: M ROOM/BED: D.2131 AUTHOR: KEITHDOC PHYSICIAN: REFERRING PHYSICIAN: KEMAL RALPH MD DATE OF SERVICE: 01/29/19 Discharge Plan Patient Name: GUMARO EVANS Facility: [facility]:[place] : 1955 Planned Disposition: [facility] Facility Anticipated Discharge Date: 01/27/19 Discharge Date: Expected LOS: 29 Initial Reviewer: [id number] Initial Review Date: 12/31/2018 Generated: 01/29/19 8:15 am Comments DCP- Discharge Planning Updated by [id number]: Karlos Sanders on 01/29/19 6:[address] Patient Name: GUMARO EVANS Encounter No: [id number] : 1955 Primary Insurance: [facility] MEDICARE SOLUTIONS Anticipated DC Date: 01-27-2019 Planned Disposition: [facility] Facility External Planned Provider: KONRAD ASHLEYRADO, MEDICARE REHAB BED LATE ENTRAY FROM 01-28-19. DCP follow-up note: CM RECE[facility]ED [facility]. PT NOTIFIED AND IN AGREEMENT WITH REHAB AT [facility]. ALBA VILLALOBOS NOTIFIED. FOR DISCHARGE, [facility] AT [phone]; [facility]SE RE[facility], [phone]. KONRAD RAMIREZ TO ARRANGE VAN TRANSPORT IF PT IS ABLE TO SIT SAFELY FOR DURATION OF TRANSPORT. NAIN FORBES DCP- Discharge Planning Updated by [id number]: Karlos Sanders on 01/27/19 9:[address] Patient Name: GUMARO EVANS Encounter No: [id number] : 1955 Primary Insurance: [facility] MEDICARE SOLUTIONS Anticipated DC Date: 01-27-2019 Planned Disposition: [facility] Facility External Planned Provider: Jessica Jhaveri - Medicare Rehab Bed DCP follow-up note: FAXED REFERRAL UPDATE TO [facility]IG[facility] AT [phone]. CM WAITING ADMISSION DETERMINATION FROM [facility] IN [place] INSURANCE AUTHORIZATION FOR REHAB SERVICES FROM INSURANCE. Karlos Sanders CASE MANAGEMENT. DCP- Discharge Planning Updated by [id number]: Karlos Sanders on 01/24/19 4:[address] Patient Name: GUMARO EVANS Encounter No: [id number] : 1955 Primary Insurance: [facility] MEDICARE SOLUTIONS Anticipated DC Date: 01-27-2019 Planned Disposition: [facility] Facility External [facility] B[facility] DCP follow-up note: CM SPOKE TO PT IN ROOM REGARDING NEED FOR [facility] RE[facility], DISCUSSED DECREASED FUNCTIONING AND THAT INPATIENT REHAB MAY ACCEPT AT A LATER DATE IF PT CAN TOLERATE THREE HOURS OF THERAPY. PT REPORTS UNDERSTANDING. CM PROVIDED PT WITH LISTING OF [facility] FACILITIES IN AND AROUND [place]. [facility] [place], CHOICE SIGNED. PT ASKED CM TO CALL AND NOTIFY HIS MOTHER. CM CALLED AND LEFT MESSAGE FOR PT''S MOTHER, HUGH, . SOCIAL SECURITY NUMBER OBTAINED AND PROVIDED TO REGISTRATION FOR UPDATE. CM NOTIFIED RODRIGO OF [facility] OF REFERRAL AT [phone], FAXED REFERRAL TO [facility] VIA [employer] AT [phone]. CM WAITING ADMISSION DETERMINATION FROM [facility] IN [place]. Karlos Sanders, CASE MANAGEMENT DCP- Discharge Planning Updated by [id number]: Pebbles Muniz on 01/19/19 2:[address] Order received stating the the patient will need rehab or snf [place]. Chart reviewed and cm noted this patient has already been accepted and auth by insurance has been given for the patient to go to Inpatient Rehab. This is a managed policy with requires rehab to call to verify auth still good and notify them of admit date. No further consults are required as plan is in place and all arrangements are pending a discharge order from physician. Pebbles Muniz RN, [facility] [phone] DCP- Discharge Planning Updated by [id number]: Karlos Sanders on 01/09/19 12:[address] Patient Name: GUMARO EVANS Encounter No: [id number] : 1955 Primary Insurance: [facility] MEDICARE SOLUTIONS Anticipated DC Date: 01-09-2019 Planned Disposition: Inpatient Rehab External Planned Provider: [facility] IN[facility] DCP follow-up note: CM SPOKE TO [facility], INSURANCE AUTHORIZATION FOR REHAB RECEIVED. CM NOTIFIED ALBA ADAM. WHEN DISCHARGED, NOTIFY [facility] IN[facility] WHO WILL THEN CONTACT MED 2 NURSE WITH ROOM NUMBER WHEN READY TO ACCEPT PT AND NURSE REPORT. Karlos Sanders CASE MANAGEMENT DCP- Discharge Planning Updated by [id number]: Karlos Sanders on 01/09/19 10:[address] Patient Name: GUMARO EVANS Encounter No: [id number] : 1955 Primary Insurance: [facility] MEDICARE SOLUTIONS Anticipated DC Date: 01-09-2019 Planned Disposition: Inpatient Rehab External Planned Provider: [facility] DCP follow-up note: CM SPOKE TO CARRY OUT CLERK SEJAL FONTAINE WHO ADVISED CM THAT PT IS PENDING INSURANCE AUTHORIZATION FOR INPATIENT REHAB AT [place]. CM SPOKE TO [facility] WHO ADVISED THAT AUTHORIZATION WAS SUBMITTED YESTERDAY TO PT'S INSURANCE COMPANY, THEY ARE WAITING INSURANCE DECISION. CM SPOKE TO PT IN ROOM, PT IS WILLING FOR REHAB AT [facility] WITH PLAN TO MOVE IN WITH HIS MOTHER AT DISCHARGE FROM REHAB. IMPORTANT MESSAGE FROM MEDICARE PROVIDED AND EXPLAINED. CM WAITING INSURANCE AUTHORIZATION FOR INPATIENT REHAB AT [facility]. Karlos Sanders CASE MANAGEMENT DCP- Discharge Planning Updated by [id number]: Amelia Fontaine on 12/31/18 2:[address] Patient Name: GUMARO EVANS Admission Status: Elective Accout number: [id number] Admission Date: 12-29-2018 : 1955 Admission Diagnosis: Attending: KEMAL RALPH Current LOS: 2 Anticipated DC Date: Planned Disposition: Home Primary Insurance: [facility] MEDICARE [email or web address] Discharge Planning Comments: CM met with patient's Mother Dasha and daughter Blanche at bedside after explaining CM role and obtaining verbal consent. Patient is currently sedated on vent. Patient lives at home with his mother and plans to return there upon discharge. Dasha states that she recently moved the patient in with her in [place] from [place]. CM discussed availability / needs of home health and medical equipment. Dasha states that the patient has a cane but no other medical equipment. Dasha states he may need home health upon discharge. Patient may require Hemodialysis as an outpatient CM will continue to follow and assist as needed with discharge planning / needs. Computer System Technician: Amelia Fontaine CURTIS - Discharge Planning Initial Assessment Updated by [id number]: Amelia Fontaine on 12/31/18 3:47 pm * Is the patient Alert and Oriented? No * How many steps to enter\exit or inside your home? * PCP Faith Paige APN * Pharmacy [facility] currently doesn't have one in [place] * Preadmission Environment Home with Family * ADLs Independent * Equipment Cane * List name and contact numbers for known caregivers / representatives who currently or will assist patient after discharge: Dasha Ellington - mother- [phone], Blanche Aguilar - daughter- [phone] * Verbal permission to speak to the caregivers and representatives has been obtained from the patient. N/A * Community resources currently utilized None * Additional services required to return to the preadmission environment? No * Can the patient safely return to the preadmission environment? Yes * Has this patient been hospitalized within the prior 30 days at any hospital? No Coverage Notice Reviewer: [id number] Sanders Notice Issued Date-Time: 01/09/2019 11:05 Notice Type: IM Discharge Notice Notice Delivered To: Patient Relationship to Patient: Senior Facilities Manager Name: Delivery Method: HAND - Hand Delivered Dorie Days: Prior Verbal Notification: Recipient Understood Notice: Yes Recipient Signature: Yes Med Rec Note Co-signed by Attending: Coverage Notice Comment: Reviewer: [id number] Rishi Sanders Notice Issued Date-Time: 01/24/2019 16:25 Notice Type: Patient Choice Letter Notice Delivered To: Patient Relationship to Patient: Senior Facilities Manager Name: Delivery Method: HAND - Hand Delivered Dorie Days: Prior Verbal Notification: Recipient Understood Notice: Yes Recipient Signature: Yes Med Rec Note Co-signed by Attending: Coverage Notice Comment: JESSICA JHAVERI Last DP export: 01/27/19 9:43 a Patient Name: GUMARO EVANS Page [phone] at 0715 All edits/amendments must be made on the electronic document DICTATION DATE: 01/29/19714 MINE EXPLORATION ENGINEER: ROBERTO 01/29/19714 RPT#: [id number] DC DATE: STATUS: ADM IN [facility] [address] [place] [address] END OF REPORT
--- NOTE | 2019-01-29 07:50 | NUR ---
REPORT RECIEVED. PT IS CURRENTLY SEMI FOWLERS. HE IS WEARING A VENTURE MASK AT 6L. HE HAS A PEG TUBE INFUSING 50ML/HR. PT STATES HIS STOMACH IS HURTING HIM THIS MORNING. HE HAS A R CVL THAT IS SL. RR EVEN AND UNLABORED. NO DISTRESS NOTED. BED LOCKED AND IN LOWEST POSITION. CALL LIGHT WITHIN REACH. WILL CTM
[2019-01-29 08:11] LABS: HEPATITIS C ANTIBODY <0.1 S/CO RAT (0.0-0.9)
[2019-01-29 08:47] VITALS: BP 166/78
[2019-01-29 08:53] VITALS: BP 166/78
[2019-01-29 09:20] LABS: PLATELET ESTIMATE DECREASED
[2019-01-29 09:21] LABS: ANISOCYTOSIS 1+; CRENATED CELLS OCC
--- NOTE | 2019-01-29 11:30 | NUR ---
Late entry: Pt seen on 01/24/19, Dr. Jenkins and primary RN present. Pt has a raw area under his nose above his upper lip, possibly from irriatation from O2 cannula. Bactroban ointment has been ordered TID. He has skin tears on bilateral buttocks/sacral area. Calmoseptine cream has been ordered for this. He is on an air overlay mattress and is up with physical therapy to chair. Recommendations: -assist with turning/repositioning q 2 hours while in bed -assist with changing position/shifting hourly when up in chair -Bridge/float heels -use calmoseptine cream to buttocks BID/PRN and used on perineal area with personal care after any incontinent episodes. Wound care continues to monitor.
--- NOTE | 2019-01-29 12:17 | NUR ---
I have reviewed this patient and I concur with the Shift Assessment completed by the Licensed Practical Nurse today this shift.
[2019-01-29 12:52] VITALS: BP 142/79
--- NOTE | 2019-01-29 13:50 | NUR ---
OT NOTE: PT REPORTED FEELING VERY TIRED THE DID NOT REST LAST NIGHT. BED MOB WITH MOD ASSIST. SITTING BALANCE ON EOB WITH GOOD STATIC SITTING; PT ABLE TO SCOOT TO EOB WHILE SITTING. PERFORMED SIMPLE GROOMING TASKS WITH IMPROVEMENT IN GROSS MOTOR STRENGHT. ABLE TO WASH FACE, HANDS, AND UPPER ARMS WITH SET UP. INSTRUCTED TO PERFORM AROM EXS FOR UES AND LES WHILE UP IN CHAIR; MAX ASSIST WITH TRANSFER FROM BED TO CHAIR. CONT TO RECOMMEND IP REHAB. VENECIA AUSTIN, OTR/L
--- NOTE | 2019-01-29 15:00 | NUR ---
Nutrition Consult/Follow-up: Pt to transition to nocturnal feeds to encourage PO intake per Dr. Lang. Noted pt experiencing loose stools. Senokot d/c'd. Diet: Low Na puree with nectar thick liquids, Ensure with meals Osmolite 1.0 @ 50 Labs reviewed Meds reviewed Change TF to 50 mL/hr from [address] following.
[2019-01-29 16:27] VITALS: BP 140/88
--- NOTE | 2019-01-29 19:00 | NUR ---
PATIENT LAYING IN BED. NO COMPLAINTS AT THIS TIME. NO DISTRESS NOTED.
[2019-01-29 20:00] VITALS: BP 123/76
[2019-01-30] VITALS: BP 124/74
--- NOTE | 2019-01-30 00:10 | NUR ---
PATIENT LAYING IN BED, EYES CLOSED, CHEST RISING AND FALLING. NO DISTRESS NOTED.
--- NOTE | 2019-01-30 03:19 | NUR ---
I have reviewed this patient and I concur with the Shift Assessment completed by the Licensed Practical Nurse today this shift.
[2019-01-30 04:00] VITALS: BP 137/88
[2019-01-30 07:03] LABS: ANION GAP 11.2 mmol/L (8-16); CARBON DIOXIDE 30.7 mmol/L (21.0-32.0); CREATININE - SERUM 1.4 mg/dL (0.6-1.3); PHOSPHOROUS 3.1 mg/dL (2.5-4.9); POTASSIUM - SERUM 3.9 mmol/L (3.5-5.1)
[2019-01-30 07:45] LABS: BASOPHILS 0 % (0-2); EOSINOPHILS 0.2 % (0-7); HEMATOCRIT 29.1 % (42.0-54.0); HEMOGLOBIN 9.4 g/dL (13.5-17.5); IMMATURE GRANULOCYTES 0.6 % (0-5); LYMPHOCYTES 9.1 % (15-50); MCH 29.2 pg (26.0-34.0); MCHC 32.3 g/dL (31.0-37.0); MCV 90.4 fL (80.0-100.0); MONOCYTES 4.3 % (2-11); NEUTROPHILS 85.8 % (40-80); RBC 3.22 10x6/uL (4.20-6.10); WBC 4.6 10x3/uL (4.8-10.8)
[2019-01-30 07:46] LABS: PLATELET COUNT 61 10x3/uL (130-400)
--- NOTE | 2019-01-30 08:00 | NUR ---
PT RESTING IN BED, SHIFT ASSESSMENT PERFORMED. DENIES ANY NEEDS AT THIS TIME. WILL CONT TO FOLLOW POC
[2019-01-30 09:23] LABS: ANISOCYTOSIS 1+; HYPOCHROMASIA OCC; PLATELET ESTIMATE DECREASED; ROULEAUX OCC; TEAR DROP CELLS OCC
[2019-01-30 09:55] VITALS: BP 150/90
--- NOTE | 2019-01-30 12:00 | NUR ---
PT RESTING IN BED EATING LUNCH. DENIES ANY NEEDS AT THIS TIME, WILL CONT TO FOLLOW POC
[2019-01-30 14:47] VITALS: BP 140/97
--- NOTE | 2019-01-30 15:43 | NUR ---
OT NOTE: PT STATING THAT HE IS NOT FEELING WELL. REFUSED TMT TODAY. WILL ATTEMPT TOMORROW. VENECIA AUSTIN, OTR/L
--- NOTE | 2019-01-30 16:41 | MORECARE ---
CASE MANAGEMENT DISCHARGE SUMMARY PATIENT: GUMARO EVANS UNIT: [id number] ADM DATE: 12/29/18 AGE: 63 : 51 SEX: M ROOM/BED: D.2133 AUTHOR: KEITH,DOC PHYSICIAN: REFERRING PHYSICIAN: KEMAL RALPH MD DATE OF SERVICE: 01/30/19 Discharge Plan Patient Name: GUMARO EVANS Facility: [facility]:[place] : 1955 Planned Disposition: Long Term Facility Anticipated Discharge Date: 01/27/19 Discharge Date: Expected LOS: 29 Initial Reviewer: [id number] Initial Review Date: 12/31/2018 Generated: 01/30/19 5:41 pm Comments DCP- Discharge Planning Updated by [id number]: Deidre Sanders on 01/30/19 3:[address] Patient Name: GUMARO EVANS Encounter No: [id number] : 1955 Primary Insurance: [facility] [employer] [employer] Anticipated DC Date: 01-27-2019 Planned Disposition: Long Term Facility External [facility] 01-28-19. DCP follow-up note: CM SPOKE TO ROLAND WHO INFORMED CM THAT PT NEEDS NEW AUTHORIZATION. CM SPOKE TO DR. RALPH IN CARE TEAM MEETING THIS MORNING, PT CAN DISCHARGE WHEN AUTHORIZATION IS RECEIVED. CM FAXED UPDATE TO RODRIGO SILVESTRE AT [phone]. WHEN INSURANCE AUTHORIZATION IS RECEIVED, NOTIFY AND WHEN DISCHARGE ORDER RECEIVED, FAX DISCHARGE INFORMATION TO KADEN VELASQUEZ AT [phone]; NURSE REPORT TO BE CALLED TO KADEN VELASQUEZ, . KADEN VELASQUEZ TO ARRANGE VAN TRANSPORT IF PT IS ABLE TO SIT SAFELY FOR DURATION OF TRANSPORT. NAIN FORBES DCP- Discharge Planning Updated by [id number]: Deidre Sanders on 01/29/19 6:[address] Patient Name: GUMARO EVANS Encounter No: [id number] : 1955 Primary Insurance: [facility] [employer] [employer] Anticipated DC Date: 01-27-2019 Planned Disposition: Long Term Facility External Planned Provider: [facility] [place], MEDICARE REHAB BED LATE ENTRAY FROM 01-28-19. DCP follow-up note: CM [facility]. PT NOTIFIED AND IN AGREEMENT WITH REHAB AT [facility]. ALBA VILLALOBOS NOTIFIED. FOR DISCHARGE, FAX DISCHARGE INFORMATION TO [facility] AT [phone]; NURSE REPORT TO BE CALLED TO [facility], [phone]. [facility] TO ARRANGE VAN TRANSPORT IF PT IS ABLE TO SIT SAFELY FOR DURATION OF TRANSPORT. DEIDRE SANDERS, CASE MANAGEMENT DCP- Discharge Planning Updated by [id number]: Deidre Sanders on 01/27/19 9:[address] Patient Name: GUMARO EVANS Encounter No: [id number] : 1955 Primary Insurance: [facility] [employer] [employer] Anticipated DC Date: 01-27-2019 Planned Disposition: Long Term Facility External Planned Provider: [facility] [place] - Medicare Rehab Bed DCP follow-up note: FAXED REFERRAL UPDATE TO [facility] VIA RODRIGO AT [phone]. CM WAITING ADMISSION DETERMINATION FROM [facility] IN [place] INSURANCE AUTHORIZATION FOR REHAB SERVICES FROM INSURANCE. Deidre Sanders CASE MANAGEMENT. DCP- Discharge Planning Updated by [email or web address]: Deidre Sanders on 01/24/19 4:[address] Patient Name: GUMARO EVANS Encounter No: [id number] : 1955 Primary Insurance: [facility] [employer] [employer] Anticipated DC Date: 01-27-2019 Planned Disposition: Long Term Facility External [facility] [place] DCP follow-up note: CM SPOKE TO PT IN ROOM REGARDING NEED FOR SENIOR CARE REHAB, DISCUSSED DECREASED FUNCTIONING AND THAT INPATIENT REHAB MAY ACCEPT AT A LATER DATE IF PT CAN TOLERATE THREE HOURS OF THERAPY. PT REPORTS UNDERSTANDING. CM PROVIDED PT WITH LISTING OF SENIOR CARE FACILITIES IN AND AROUND [place]. PT WANTS REFERRED TO [facility] IN [place], CHOICE SIGNED. PT ASKED CM TO CALL AND NOTIFY HIS MOTHER. CM CALLED AND LEFT MESSAGE FOR PT''S MOTHER, HUGH, . SOCIAL SECURITY NUMBER OBTAINED AND PROVIDED TO REGISTRATION FOR UPDATE. CM NOTIFIED RODRIGO OF [facility] OF REFERRAL AT [phone], FAXED REFERRAL TO [facility] VIA RODRIGO AT [phone]. CM WAITING ADMISSION DETERMINATION FROM [facility] IN [place]. Deirde Sanders CASE MANAGEMENT DCP- Discharge Planning Updated by [id number]: Pebbles Muniz on 01/19/19 2:[address] Order received stating the the patient will need rehab or snf at [place]. Chart reviewed and cm noted this patient has already been accepted and auth by insurance has been given for the patient to go to Inpatient Rehab. This is a managed policy with requires rehab to call to verify auth still good and notify them of admit date. No further consults are required as plan is in place and all arrangements are pending a discharge order from physician. Pebbles Muniz RN, [facility] [phone] DCP- Discharge Planning Updated by [email or web address]: Deidre Sanders on 01/09/19 12:[address] Patient Name: GUMARO EVANS Encounter No: [id number] : 1955 Primary Insurance: [facility] [employer] [employer] Anticipated DC Date: 01-09-2019 Planned Disposition: Inpatient Rehab External Planned Provider: [facility] INPATIENT REHAB DCP follow-up note: CM SPOKE TO FRANCES OF [facility] INPATIENT REHAB, INSURANCE AUTHORIZATION FOR REHAB RECEIVED. CM NOTIFIED ALBA ADAM. WHEN DISCHARGED, NOTIFY [facility] INPATIENT REHAB WHO WILL THEN CONTACT [facility] NURSE WITH ROOM NUMBER WHEN READY TO ACCEPT PT AND NURSE REPORT. Deidre Sanders, CASE MANAGEMENT DCP- Discharge Planning Updated by [email or web address]: Deidre Sanders on 01/09/19 10:[address] Patient Name: GUMARO EVANS Encounter No: [id number] : 1955 Primary Insurance: [facility] [employer] Anticipated DC Date: 01-09-2019 Planned Disposition: Inpatient Rehab External Planned Provider: [facility] INPATIENT REHAB DCP follow-up note: CM SPOKE TO FINGERER SEJAL MANNING WHO ADVISED CM THAT PT IS PENDING INSURANCE AUTHORIZATION FOR INPATIENT REHAB AT [place]. CM SPOKE TO [facility] IN[facility] RE[facility] WHO ADVISED THAT AUTHORIZATION WAS SUBMITTED YESTERDAY TO PT'S INSURANCE COMPANY, THEY ARE WAITING INSURANCE DECISION. CM SPOKE TO PT IN ROOM, PT IS WILLING FOR REHAB AT [place] WITH PLAN TO MOVE IN WITH HIS MOTHER AT DISCHARGE FROM REHAB. IMPORTANT MESSAGE FROM MEDICARE PROVIDED AND EXPLAINED. CM WAITING INSURANCE AUTHORIZATION FOR INPATIENT REHAB AT [facility]. Deidre Sanders, CASE MANAGEMENT DCP- Discharge Planning Updated by [id number]: Amelia Manning on 12/31/18 2:[address] Patient Name: GUMARO EVANS Admission Status: Elective Accout number: [id number] Admission Date: 12-29-2018 : 1955 Admission Diagnosis: Attending: KEMAL RALPH Current LOS: 2 Anticipated DC Date: Planned Disposition: Home Primary Insurance: [facility] [employer] [employer] Discharge Planning Comments: CM met with patient's Mother Dasha and daughter Blanche at bedside after explaining CM role and obtaining verbal consent. Patient is currently sedated on vent. Patient lives at home with his mother and plans to return there upon discharge. Dasha states that she recently moved the patient in with her in [place] from [place]. CM discussed availability / needs of home health and medical equipment. Dasha states that the patient has a cane but no other medical equipment. Dasha states he may need home health upon discharge. Patient may require Hemodialysis as an outpatient CM will continue to follow and assist as needed with discharge planning / needs. Computer Graphic Designer: Amelia Zhen DCPIA - Discharge Planning Initial Assessment Updated by [id number]: Amelia Zhen on 12/31/18 3:47 pm * Is the patient Alert and Oriented? No * How many steps to enter\exit or inside your home? * PCP Faith Paige APN * Pharmacy [facility] currently doesn't have one in [place] * Preadmission Environment Home with Family * ADLs Independent * Equipment Cane * List name and contact numbers for known caregivers / representatives who currently or will assist patient after discharge: Dasha Ellington - mother- [phone], Blanche Aguilar - daughter- [phone] * Verbal permission to speak to the caregivers and representatives has been obtained from the patient. N/A * Community resources currently utilized None * Additional services required to return to the preadmission environment? No * Can the patient safely return to the preadmission environment? Yes * Has this patient been hospitalized within the prior 30 days at any hospital? No Coverage Notice Reviewer: [id number] Sanders Notice Issued Date-Time: 01/09/2019 11:05 Notice Type: IM Discharge Notice Notice Delivered To: Patient Relationship to Patient: Steam Room Attendant Name: Delivery Method: HAND - Hand Delivered Dorie Days: Prior Verbal Notification: Recipient Understood Notice: Yes Recipient Signature: Yes Med Rec Note Co-signed by Attending: Coverage Notice Comment: Reviewer: [id number] Sanders Notice Issued Date-Time: 01/24/2019 16:25 Notice Type: Patient Choice Letter Notice Delivered To: Patient Relationship to Patient: Steam Room Attendant Name: Delivery Method: HAND - Hand Delivered Dorie Days: Prior Verbal Notification: Recipient Understood Notice: Yes Recipient Signature: Yes Med Rec Note Co-signed by Attending: Coverage Notice Comment: RICHARD GAMBINO Last DP export: 01/29/19 6:15 a Patient Name: GUMARO EVANS Page [id number] at 1641 All edits/amendments must be made on the electronic document DICTATION DATE: 01/30/191640 STEAMFITTER APPRENTICE: ROBERTO 01/30/191640 RPT#: [id number] DC DATE: STATUS: ADM IN [facility] [address] [place] [address] END OF REPORT
--- NOTE | 2019-01-30 17:52 | NUR ---
PT RESTING IN BED EATING SUPPER, DENIES ANY NEEDS AT THIS TIME, WILL CONT TO FOLLOW POC
--- NOTE | 2019-01-30 19:42 | NUR ---
PT CARE ASSUMED. PT IN BED RECEIVING UPDRAFT. RR EVEN AND UNLABORED. NO S/S OF DISTRESS NOTED. PT DENIES NEEDS AT THIS TIME. CALL LIGHT IN REACH. WILL CTM.
[2019-01-30 20:00] VITALS: BP 108/68
[2019-01-31] VITALS: BP 129/76
[2019-01-31 04:00] VITALS: BP 139/79
[2019-01-31 06:08] LABS: BASOPHILS 0.2 % (0-2); EOSINOPHILS 0 % (0-7); HEMATOCRIT 29.8 % (42.0-54.0); HEMOGLOBIN 9.6 g/dL (13.5-17.5); IMMATURE GRANULOCYTES 0.2 % (0-5); LYMPHOCYTES 5.9 % (15-50); MCH 29.4 pg (26.0-34.0); MCHC 32.2 g/dL (31.0-37.0); MCV 91.4 fL (80.0-100.0); MONOCYTES 3.9 % (2-11); NEUTROPHILS 89.8 % (40-80); PLATELET COUNT 63 10x3/uL (130-400); RBC 3.26 10x6/uL (4.20-6.10); WBC 5.4 10x3/uL (4.8-10.8)
[2019-01-31 07:10] LABS: ANION GAP 14.2 mmol/L (8-16); CALCIUM 8.1 mg/dL (8.5-10.1); CARBON DIOXIDE 27.7 mmol/L (21.0-32.0); CREATININE - SERUM 1.4 mg/dL (0.6-1.3); PHOSPHOROUS 3.6 mg/dL (2.5-4.9); POTASSIUM - SERUM 3.9 mmol/L (3.5-5.1)
--- NOTE | 2019-01-31 07:15 | MORECARE ---
CASE MANAGEMENT DISCHARGE SUMMARY PATIENT: GUMARO EVANS UNIT: [id number] ADM DATE: 12/29/18 AGE: 63 : 53 SEX: M ROOM/BED: D.2134 AUTHOR: KEITH,DOC PHYSICIAN: REFERRING PHYSICIAN: KEMAL RALPH MD DATE OF SERVICE: 01/31/19 Discharge Plan Patient Name: GUMARO EVANS Facility: [facility]:[place] : 1955 Planned Disposition: Correction Facility Anticipated Discharge Date: 01/27/19 Discharge Date: Expected LOS: 29 Initial Reviewer: [id number] Initial Review Date: 12/31/2018 Generated: 01/31/19 8:14 am Comments DCP- Discharge Planning Updated by [id number]: Deidre Sanders on 01/30/19 3:[address] Patient Name: GUMARO EVANS Encounter No: [id number] : 1955 Primary Insurance: [facility] SOL[facility] Anticipated DC Date: 01-27-2019 Planned Disposition: Correction Facility External Planned Provider: [facility] MEDICARE REHAB BED LATE ENTRAY FROM 01-28-19. DCP follow-up note: CM SPOKE TO ROLAND WHO INFORMED CM THAT PT NEEDS NEW AUTHORIZATION. CM SPOKE TO DR. RALPH IN CARE TEAM MEETING THIS MORNING, PT CAN DISCHARGE WHEN AUTHORIZATION IS RECEIVED. CM FAXED UPDATE TO RODRIGO SILVESTRE AT [phone]. WHEN INSURANCE AUTHORIZATION IS RECEIVED, NOTIFY AND WHEN DISCHARGE ORDER RECEIVED, FAX DISCHARGE INFORMATION TO KADEN VELASQUEZ AT [phone]; NURSE REPORT TO BE CALLED TO KADEN VELASQUEZ, . KADEN VELASQUEZ TO ARRANGE VAN TRANSPORT IF PT IS ABLE TO SIT SAFELY FOR DURATION OF TRANSPORT. NAIN FORBES DCP- Discharge Planning Updated by [id number]: Deidre Sanders on 01/29/19 6:[address] Patient Name: GUMARO EVANS Encounter No: [id number] : 1955 Primary Insurance: [facility] MED[facility] SOLUT[facility] Anticipated DC Date: 01-27-2019 Planned Disposition: Correction Facility External Planned Provider: [facility] [place], MEDICARE REHAB BED LATE ENTRAY FROM 01-28-19. DCP follow-up note: CM [facility]. PT NOTIFIED AND IN AGREEMENT WITH REHAB AT [facility]. ALBA VILLALOBOS NOTIFIED. FOR DISCHARGE, FAX DISCHARGE INFORMATION TO [facility] AT [phone]; NURSE REPORT TO BE CALLED TO [facility], [phone]. [facility] TO ARRANGE VAN TRANSPORT IF PT IS ABLE TO SIT SAFELY FOR DURATION OF TRANSPORT. DEIDRE SANDERS, CASE MANAGEMENT DCP- Discharge Planning Updated by [id number]: Deidre Sanders on 01/27/19 9:[address] Patient Name: GUMARO EVANS Encounter No: [id number] : 1955 Primary Insurance: [facility] MED[facility] SOLUT[facility] Anticipated DC Date: 01-27-2019 Planned Disposition: Correction Facility External Planned Provider: [facility] [place] - Medicare Rehab Bed DCP follow-up note: FAXED REFERRAL UPDATE TO [facility] VIA RODRIGO AT [phone]. CM WAITING ADMISSION DETERMINATION FROM [facility] IN [place] INSURANCE AUTHORIZATION FOR REHAB SERVICES FROM INSURANCE. Deidre Sanders CASE MANAGEMENT. DCP- Discharge Planning Updated by [id number]: Deidre Sanders on 01/24/19 4:[address] Patient Name: GUMARO EVANS Encounter No: [id number] : 1955 Primary Insurance: [facility] SOLUT[facility] Anticipated DC Date: 01-27-2019 Planned Disposition: Correction Facility External [facility] [place] B[facility] DCP follow-up note: CM SPOKE TO PT IN ROOM REGARDING NEED FOR RETIREMENT REHAB, DISCUSSED DECREASED FUNCTIONING AND THAT INPATIENT REHAB MAY ACCEPT AT A LATER DATE IF PT CAN TOLERATE THREE HOURS OF THERAPY. PT REPORTS UNDERSTANDING. CM PROVIDED PT WITH LISTING OF RETIREMENT FACILITIES IN AND AROUND [place]. PT WANTS REFERRED TO [facility] IN [place], CHOICE SIGNED. PT ASKED CM TO CALL AND NOTIFY HIS MOTHER. CM CALLED AND LEFT MESSAGE FOR PT''S MOTHER, HUGH, . SOCIAL SECURITY NUMBER OBTAINED AND PROVIDED TO REGISTRATION FOR UPDATE. CM NOTIFIED RODRIGO OF [facility] OF REFERRAL AT [phone], FAXED REFERRAL TO [facility] VIA RODRIGO AT [phone]. CM WAITING ADMISSION DETERMINATION FROM [facility] IN [place]. Deidre Sanders CASE MANAGEMENT DCP- Discharge Planning Updated by [id number]: Pebbles Muniz on 01/19/19 2:[address] Order received stating the the patient will need rehab [place] snf [place]. Chart reviewed and cm noted this patient has already been accepted and auth by insurance has been given for the patient to go to Inpatient Rehab. This is a managed policy with requires rehab to call to verify auth still good and notify them of admit date. No further consults are required as plan is in place and all arrangements are pending a discharge order from physician. Pebbles Muniz RN, [facility] [phone] DCP- Discharge Planning Updated by [email or web address]: Deidre Sanders on 01/09/19 12:[address] Patient Name: GUMARO EVANS Encounter No: [id number] : 1955 Primary Insurance: [facility] MED[facility] SOLUTIONS Anticipated DC Date: 01-09-2019 Planned Disposition: Inpatient Rehab External Planned Provider: [facility] INPATIENT REHAB DCP follow-up note: CM SPOKE TO [facility] INPATIENT [facility], INSURANCE AUTHORIZATION FOR REHAB RECEIVED. CM NOTIFIED ALBA ADAM. WHEN DISCHARGED, NOTIFY [facility] INPATIENT REHAB WHO WILL THEN CONTACT [facility] NURSE WITH ROOM NUMBER WHEN READY TO ACCEPT PT AND NURSE REPORT. Deidre Sanders, CASE MANAGEMENT DCP- Discharge Planning Updated by [email or web address]: Deidre Sanders on 01/09/19 10:[address] Patient Name: GUMARO EVANS Encounter No: [id number] : 1955 Primary Insurance: [facility] MEDICARE SOLUTIONS Anticipated DC Date: 01-09-2019 Planned Disposition: Inpatient Rehab External Planned Provider: [facility] INPATIENT REHAB DCP follow-up note: CM SPOKE TO INSURANCE SALES MANAGER SEJAL MANNING WHO ADVISED CM THAT PT IS PENDING INSURANCE AUTHORIZATION FOR INPATIENT REHAB AT [place]. CM SPOKE TO [facility] INPAT[facility] WHO ADVISED THAT AUTHORIZATION WAS SUBMITTED YESTERDAY TO PT'S INSURANCE COMPANY, THEY ARE WAITING INSURANCE DECISION. CM SPOKE TO PT IN ROOM, PT IS WILLING FOR REHAB AT [place] WITH PLAN TO MOVE IN WITH HIS MOTHER AT DISCHARGE FROM REHAB. IMPORTANT MESSAGE FROM MEDICARE PROVIDED AND EXPLAINED. CM WAITING INSURANCE AUTHORIZATION FOR INPATIENT REHAB AT [facility]. Deidre Sanders, CASE MANAGEMENT DCP- Discharge Planning Updated by [email or web address]: Amelia Manning on 12/31/18 2:[address] Patient Name: GUMARO EVANS Admission Status: Elective Accout number: [id number] Admission Date: 12-29-2018 : 1955 Admission Diagnosis: Attending: KEMAL RALPH Current LOS: 2 Anticipated DC Date: Planned Disposition: Home Primary Insurance: [facility] MEDICARE SOLUTIONS Discharge Planning Comments: CM met with patient's Mother Dasha and daughter Blanche at bedside after explaining CM role and obtaining verbal consent. Patient is currently sedated on vent. Patient lives at home with his mother and plans to return there upon discharge. Dasha states that she recently moved the patient in with her in [place] from [place]. CM discussed availability / needs of home health and medical equipment. Dasha states that the patient has a cane but no other medical equipment. Dasha states he may need home health upon discharge. Patient may require Hemodialysis as an outpatient CM will continue to follow and assist as needed with discharge planning / needs. Planer Setter: Amelia Zhen DCPIA - Discharge Planning Initial Assessment Updated by [id number]: Amelia Zhen on 12/31/18 3:47 pm * Is the patient Alert and Oriented? No * How many steps to enter\exit or inside your home? * PCP Faith Paige APN * Pharmacy [facility] currently doesn't have one in [place] * Preadmission Environment Home with Family * ADLs Independent * Equipment Cane * List name and contact numbers for known caregivers / representatives who currently or will assist patient after discharge: Dasha Ellington - mother- [phone], Blanche Aguilar - daughter- [phone] * Verbal permission to speak to the caregivers and representatives has been obtained from the patient. N/A * Community resources currently utilized None * Additional services required to return to the preadmission environment? No * Can the patient safely return to the preadmission environment? Yes * Has this patient been hospitalized within the prior 30 days at any hospital? No Coverage Notice Reviewer: [id number] Sanders Notice Issued Date-Time: 01/09/2019 11:05 Notice Type: IM Discharge Notice Notice Delivered To: Patient Relationship to Patient: Special Needs Bus Driver Name: Delivery Method: HAND - Hand Delivered Dorie Days: Prior Verbal Notification: Recipient Understood Notice: Yes Recipient Signature: Yes Med Rec Note Co-signed by Attending: Coverage Notice Comment: Reviewer: [id number] Sanders Notice Issued Date-Time: 01/24/2019 16:25 Notice Type: Patient Choice Letter Notice Delivered To: Patient Relationship to Patient: Special Needs Bus Driver Name: Delivery Method: HAND - Hand Delivered Dorie Days: Prior Verbal Notification: Recipient Understood Notice: Yes Recipient Signature: Yes Med Rec Note Co-signed by Attending: Coverage Notice Comment: RICHARD GAMBINO DP export: 01/30/19 3:41 p Patient Name: GUMARO EVANS Page 75702 at 0715 All edits/amendments must be made on the electronic document DICTATION DATE: 01/31/19713 ELECTRICAL MECHANICAL TECHNICIAN: ROBERTO 01/31/19713 RPT#: [id number] DC DATE: STATUS: ADM IN [facility] [address] [place] [address] END OF REPORT
--- NOTE | 2019-01-31 07:46 | NUR ---
REPORT RECIEVED. PT RESTING QUIETLY. RISE AND FALL NOTED. PT HAS A R CVL THAT IS SL. OXYGEN MASK PUT ON PT AT THIS TIME AT 6L. PEG FEEDING TURNED OFF. BED LOCKED AND IN LOWEST POSITION. CALL LIGHT WITHIN REACH.WILL CTM
[2019-01-31 08:00] VITALS: BP 141/85
--- NOTE | 2019-01-31 11:18 | NUR ---
Nutrition Follow-up: Tolerating nocturnal TF and PO intake. Diarrhea resolved. Reports drinking 2 Ensure/day. Diet: Low Na puree with nectar thick liquids Osmolite 1.0 @ 50 mL/hr from 1800 to 0600 PO intake: 0-25% Wt: 204# Last BM: 01/30 Labs reviewed Meds reviewed Continue current diet and TF as tolerated. Encourage PO intake. [place] food preferences within diet restrictions. RD following.
[2019-01-31] MEDS ORDERED: LASIX 40 M40 MG/5 ML PEG (11:25)
[2019-01-31] MEDS ORDERED: HYDRALAZINE HCL25 MG PO (11:25)
[2019-01-31] MEDS ORDERED: LANTUS SOL100 UNIT/1 SC (11:27)
[2019-01-31] MEDS ORDERED: PREDNISONE20 MG PO (11:27)
[2019-01-31] MEDS ORDERED: HUMULIN R100 U/ML SC (11:28)
[2019-01-31 12:00] VITALS: BP 122/74
[2019-01-31] MEDS ORDERED: PROTONIX40 MG PO (12:14)
--- NOTE | 2019-01-31 13:50 | NUR ---
OT NOTE: PT IS HAVING A GOOD DAY. PT APPEARS MORE ENGAGED WITH ACTIVITIES. PT COMPLETED BED MOB WITH DECREASED PHYSICAL ASSIST. PT REQUIRED MOD A. PT COMPLETED SIT TO STAND WITH MAX A. PT DID BEAR WEIGHT THROUGH LES. PT COMPLETED SELF FEEDING TASKS WITH SET UP. THANK YOU, BONY MCKEON
[2019-01-31 14:45] VITALS: BP 122/70
--- NOTE | 2019-01-31 15:28 | MORECARE ---
CASE MANAGEMENT DISCHARGE SUMMARY PATIENT: GUMARO EVANS UNIT: [id number] ADM DATE: 12/29/18 AGE: 63 : 51 SEX: M ROOM/BED: D.2136 AUTHOR: KEITH,DOC PHYSICIAN: REFERRING PHYSICIAN: KEMAL RALPH MD DATE OF SERVICE: 01/31/19 Discharge Plan Patient Name: GUMARO EVANS Facility: [facility]:[place] : 1955 Planned Disposition: Longterm Facility Anticipated Discharge Date: 01/27/19 Discharge Date: Expected LOS: 29 Initial Reviewer: [id number] Initial Review Date: 12/31/2018 Generated: 01/31/19 4:28 pm Comments DCP- Discharge Planning Updated by [id number]: Deidre Sanders on 01/31/19 2:[address] Patient Name: GUMARO EVANS Encounter No: [id number] : 1955 Primary Insurance: [facility] MEDICARE SOLUTIONS Anticipated DC Date: 01-27-2019 Planned Disposition: Longterm Facility External Planned Provider: [facility] [place], MEDICARE REHAB BED LATE ENTRY FROM 01-28-19. DCP follow-up note: CM SPOKE TO ROLAND WHO INFORMED CM THAT PT NEEDS NEW AUTHORIZATION. CM SPOKE TO DR. RALPH IN CARE TEAM MEETING THIS MORNING, PT CAN DISCHARGE WHEN AUTHORIZATION IS RECEIVED. CM FAXED UPDATE TO RODRIGO SILVESTRE AT [phone]. WHEN INSURANCE AUTHORIZATION IS RECEIVED, NOTIFY AND WHEN DISCHARGE ORDER RECEIVED, FAX DISCHARGE INFORMATION TO [facility] AT [phone]; NURSE REPORT TO BE CALLED TO [facility], . [facility] TO ARRANGE VAN TRANSPORT IF PT IS ABLE TO SIT SAFELY FOR DURATION OF TRANSPORT. NAIN FORBES DCP- Discharge Planning Updated by [id number]: Deidre Sanders on 01/29/19 6:[address] Patient Name: GUMARO EVANS Encounter No: [id number] : 1955 Primary Insurance: [facility] MEDICARE SOLUTIONS Anticipated DC Date: 01-27-2019 Planned Disposition: Longterm Facility External Planned Provider: [facility] [place], MEDICARE REHAB BED LATE ENTRAY FROM 01-28-19. DCP follow-up note: CM RECEIVED CALL FROM RODRIGO OF [facility] AT [facility]CHARGE. PT NOTIFIED AND IN AGREEMENT WITH REHAB AT [facility]. ALBA VILLALOBOS NOTIFIED. FOR DISCHARGE, FAX DISCHARGE INFORMATION TO [facility] AT [phone]; NURSE REPORT TO BE CALLED TO [facility], [phone]. [facility] TO ARRANGE VAN TRANSPORT IF PT IS ABLE TO SIT SAFELY FOR DURATION OF TRANSPORT. DEIDRE SANDERS, CASE MANAGEMENT DCP- Discharge Planning Updated by [id number]: Deidre Sanders on 01/27/19 9:[address] Patient Name: GUMARO EVANS Encounter No: [id number] : 1955 Primary Insurance: [facility] MEDICARE SOLUTIONS Anticipated DC Date: 01-27-2019 Planned Disposition: Longterm Facility External Planned Provider: [facility], [place] - Medicare Rehab Bed DCP follow-up note: FAXED REFERRAL UPDATE TO [facility] VIA RODRIGO AT [phone]. CM WAITING ADMISSION DETERMINATION FROM [facility] IN [place] INSURANCE AUTHORIZATION FOR REHAB SERVICES FROM INSURANCE. NAIN Forbes. DCP- Discharge Planning Updated by [id number]: Deidre Sanders on 01/24/19 4:[address] Patient Name: GUMARO EVANS Encounter No: [id number] : 1955 Primary Insurance: [facility] MEDICARE SOLUTIONS Anticipated DC Date: 01-27-2019 Planned Disposition: Longterm Facility External Planned Provider: [facility] [place], MEDICARE REHAB BED DCP follow-up note: CM SPOKE TO PT IN ROOM REGARDING NEED FOR [facility], DISCUSSED DECREASED FUNCTIONING AND THAT INPATIENT REHAB MAY ACCEPT AT A LATER DATE IF PT CAN TOLERATE THREE HOURS OF THERAPY. PT REPORTS UNDERSTANDING. CM PROVIDED PT WITH LISTING OF [facility] FACILITIES IN AND AROUND [place]. PT WANTS REFERRED TO [facility] IN [place], CHOICE SIGNED. PT ASKED CM TO CALL AND NOTIFY HIS MOTHER. CM CALLED AND LEFT MESSAGE FOR PT''S MOTHER, HUGH, . SOCIAL SECURITY NUMBER OBTAINED AND PROVIDED TO REGISTRATION FOR UPDATE. CM NOTIFIED RODRIGO OF [facility] OF REFERRAL AT [phone], FAXED REFERRAL TO [facility] VIA RODRIGO AT [phone]. CM WAITING ADMISSION DETERMINATION FROM [facility] IN [place]. Deidre Sanders CASE MANAGEMENT DCP- Discharge Planning Updated by [id number]: Pebbles Muniz on 01/19/19 2:[address] Order received stating the the patient will need rehab [place] snf [place]. Chart reviewed and cm noted this patient has already been accepted and auth by insurance has been given for the patient to go to Inpatient Rehab. This is a managed policy with requires rehab to call to verify auth still good and notify them of admit date. No further consults are required as plan is in place and all arrangements are pending a discharge order from physician. Pebbles Muniz RN, [facility] [phone] DCP- Discharge Planning Updated by [id number]: Deidre Sanders on 01/09/19 12:[address] Patient Name: GUMARO EVANS Encounter No: [id number] : 1955 Primary Insurance: [facility] MEDICARE SOLUTIONS Anticipated DC Date: 01-09-2019 Planned Disposition: Inpatient Rehab External Planned Provider: [facility] DCP follow-up note: CM SPOKE TO [facility], INSURANCE AUTHORIZATION FOR REHAB RECEIVED. CM NOTIFIED ALBA ADAM. WHEN DISCHARGED, NOTIFY [facility] INPATIENT [facility] WHO WILL THEN CONTACT [facility] NURSE WITH ROOM NUMBER WHEN READY TO ACCEPT PT AND NURSE REPORT. Deidre Sanders, CASE MANAGEMENT DCP- Discharge Planning Updated by [id number]: Deidre Sanders on 01/09/19 10:[address] Patient Name: GUMARO EVANS Encounter No: [id number] : 1955 Primary Insurance: [facility] MEDICARE SOLUTIONS Anticipated DC Date: 01-09-2019 Planned Disposition: Inpatient Rehab External Planned Provider: [facility] DCP follow-up note: CM SPOKE TO SENIOR BIOINFORMATICS SCIENTIST SEJAL MANNING WHO ADVISED CM THAT PT IS PENDING INSURANCE AUTHORIZATION FOR INPATIENT REHAB AT [place]. CM SPOKE TO [facility] WHO ADVISED THAT AUTHORIZATION WAS SUBMITTED YESTERDAY TO PT'S INSURANCE COMPANY, THEY ARE WAITING INSURANCE DECISION. CM SPOKE TO PT IN ROOM, PT IS WILLING FOR REHAB AT [place] WITH PLAN TO MOVE IN WITH HIS MOTHER AT DISCHARGE FROM REHAB. IMPORTANT MESSAGE FROM MEDICARE PROVIDED AND EXPLAINED. CM WAITING INSURANCE AUTHORIZATION FOR INPATIENT REHAB AT [facility]. Deidre Sanders, CASE MANAGEMENT DCP- Discharge Planning Updated by [id number]: Amelia Zhen on 12/31/18 2:[address] Patient Name: GUMARO EVANS Admission Status: Elective Accout number: [id number] Admission Date: 12-29-2018 : 1955 Admission Diagnosis: Attending: KEMAL RALPH Current LOS: 2 Anticipated DC Date: Planned Disposition: Home Primary Insurance: [facility] MEDICARE SOLUTIONS Discharge Planning Comments: CM met with patient's Mother Dasha and daughter Blanche at bedside after explaining CM role and obtaining verbal consent. Patient is currently sedated on vent. Patient lives at home with his mother and plans to return there upon discharge. Dasha states that she recently moved the patient in with her in [place] from [place]. CM discussed availability / needs of home health and medical equipment. Dasha states that the patient has a cane but no other medical equipment. Dasha states he may need home health upon discharge. Patient may require Hemodialysis as an outpatient CM will continue to follow and assist as needed with discharge planning / needs. Senior Facilities Manager: Ameliajosué Valenzeular DCPIA - Discharge Planning Initial Assessment Updated by [id number]: Amelia Valenzuelar on 12/31/18 3:47 pm * Is the patient Alert and Oriented? No * How many steps to enter\exit or inside your home? * PCP Faith Paige APN * Pharmacy [facility] currently doesn't have one in [place] * Preadmission Environment Home with Family * ADLs Independent * Equipment Cane * List name and contact numbers for known caregivers / representatives who currently or will assist patient after discharge: Dasha Ellington - mother- [phone], Blanche Aguilar - daughter- [phone] * Verbal permission to speak to the caregivers and representatives has been obtained from the patient. N/A * Community resources currently utilized None * Additional services required to return to the preadmission environment? No * Can the patient safely return to the preadmission environment? Yes * Has this patient been hospitalized within the prior 30 days at any hospital? No Coverage Notice Reviewer: YUKI Sanders Notice Issued Date-Time: 01/09/2019 11:05 Notice Type: IM Discharge Notice Notice Delivered To: Patient Relationship to Patient: Disease Case Manager Rn Name: Delivery Method: HAND - Hand Delivered Dorie Days: Prior Verbal Notification: Recipient Understood Notice: Yes Recipient Signature: Yes Med Rec Note Co-signed by Attending: Coverage Notice Comment: Reviewer: YUKI Sanders Notice Issued Date-Time: 01/24/2019 16:25 Notice Type: Patient Choice Letter Notice Delivered To: Patient Relationship to Patient: Disease Case Manager Rn Name: Delivery Method: HAND - Hand Delivered Dorie Days: Prior Verbal Notification: Recipient Understood Notice: Yes Recipient Signature: Yes Med Rec Note Co-signed by Attending: Coverage Notice Comment: RICHARD GAMBINO Reviewer: YUKI Sanders Notice Issued Date-Time: 01/31/2019 15:20 Notice Type: IM Discharge Notice Notice Delivered To: Patient Relationship to Patient: Disease Case Manager Rn Name: Delivery Method: HAND - Hand Delivered Dorie Days: Prior Verbal Notification: Recipient Understood Notice: Yes Recipient Signature: Yes Med Rec Note Co-signed by Attending: Coverage Notice Comment: Last DP export: 01/31/19 6:15 a Patient Name: GUMARO EVANS Page 15312 at 1528 All edits/amendments must be made on the electronic document DICTATION DATE: 01/31/19 152 BARREL CHARRER HELPER: ROBERTO 01/31/19 1528 RPT#: [id number] DC DATE: STATUS: ADM IN [facility] [address] [place] [address] END OF REPORT
--- NOTE | 2019-01-31 15:38 | MORECARE ---
CASE MANAGEMENT DISCHARGE SUMMARY PATIENT: GUMARO EVANS UNIT: [id number] ADM DATE: 12/29/18 AGE: 63 : 51 SEX: M ROOM/BED: D.2135 AUTHOR: KEITH,DOC PHYSICIAN: REFERRING PHYSICIAN: KEMAL RALPH MD DATE OF SERVICE: 01/31/19 Discharge Plan Patient Name: GUMARO EVANS Facility: [facility]:[place] : 1955 Planned Disposition: [facility] Facility Anticipated Discharge Date: 01/27/19 Discharge Date: Expected LOS: 29 Initial Reviewer: [id number] Initial Review Date: 12/31/2018 Generated: 01/31/19 4:37 pm Comments DCP- Discharge Planning Updated by [id number]: Deidre Sanders on 01/31/19 2:[address] Patient Name: GUMARO EVANS Admission Status: Elective Accout number: [id number] Admission Date: 12-29-2018 : 1955 Admission Diagnosis:SEPSIS, UNSPECIFIED ORGANISM Attending: KEMAL RALPH Current LOS: 33 Anticipated DC Date: 01-27-2019 Planned Disposition: [facility] Facility Primary Insurance: [facility] MEDICARE SOLUTIONS PLANNED EXTERNAL PROVIDER: [facility] [place], MEDICARE REHAB BED DCP follow-up note: CM SPOKE TO ROLAND WHO INFORMED CM THAT [facility] IS SUBMITTING FOR INSURANCE AUTHORIZATION. CM SPOKE TO DR. RALPH IN CARE TEAM MEETING THIS MORNING, PT CAN DISCHARGE WHEN AUTHORIZATION IS RECEIVED. CM FAXED UPDATE AND DISCHARGE INFORMATIONTO RODRIGO SILVESTRE AT [phone]. CM SPOKE TO PT WHO IS IN AGREEMENT WITH [facility]CHARGE TO [facility]. IMPORTANT MESSAGE FROM MEDICARE PROVIDED AND EXPLAINED. WHEN INSURANCE AUTHORIZATION IS RECEIVED, NOTIFY AND WHEN DISCHARGE ORDER RECEIVED, NURSE REPORT TO BE CALLED TO [facility], . [facility] TO ARRANGE VAN TRANSPORT IF PT IS ABLE TO SIT SAFELY FOR DURATION OF TRANSPORT. Large Engine Assembler: Deidre Sanders DCP- Discharge Planning Updated by [id number]: Deidre Sanders on 01/31/19 2:[address] Patient Name: GUMARO EVANS Encounter No: [id number] : 1955 Primary Insurance: [facility] MEDICARE SOLUTIONS Anticipated DC Date: 01-27-2019 Planned Disposition: [facility] Facility External Planned Provider: [facility] MEDICARE REHAB BED LATE ENTRY FROM 01-28-19. DCP follow-up note: CM SPOKE TO R[facility]RIGO [facility] WHO INFORMED CM THAT PT NEEDS NEW AUTHORIZATION. CM SPOKE TO DR. RALPH IN CARE TEAM MEETING THIS MORNING, PT CAN DISCHARGE WHEN AUTHORIZATION IS RECEIVED. CM FAXED UPDATE TO RODRIGO [facility] AT [phone]. WHEN INSURANCE AUTHORIZATION IS RECEIVED, NOTIFY AND WHEN DISCHARGE ORDER RECEIVED, FAX DISCHARGE INFORMATION TO [facility] AT [phone]; NURSE REPORT TO BE CALLED TO [facility], . [facility] TO ARRANGE VAN TRANSPORT IF PT IS ABLE TO SIT SAFELY FOR DURATION OF TRANSPORT. DEIDRE SANDERS, CASE MANAGEMENT DCP- Discharge Planning Updated by [id number]: Deidre Sanders on 01/29/19 6:[address] Patient Name: GUMARO EVANS Encounter No: [id number] : 1955 Primary Insurance: [facility] MEDICARE SOLUTIONS Anticipated DC Date: 01-27-2019 Planned Disposition: [facility] Facility External Planned Provider: [facility] MEDICARE REHAB BED LATE ENTRAY FROM 01-28-19. DCP follow-up note: CM RECEIVED [facility]. PT NOTIFIED AND IN AGREEMENT WITH REHAB AT [facility]. ALBA VILLALOBOS NOTIFIED. FOR DISCHARGE, FAX DISCHARGE INFORMATION TO [facility] AT [phone]; NURSE REPORT TO BE CALLED TO [facility], [phone]. [facility] TO ARRANGE VAN TRANSPORT IF PT IS ABLE TO SIT SAFELY FOR DURATION OF TRANSPORT. DEIDRE SANDERS, CASE MANAGEMENT DCP- Discharge Planning Updated by [id number]: Deidre Sanders on 01/27/19 9:[address] Patient Name: GUMARO EVANS Encounter No: [id number] : 1955 Primary Insurance: [facility] MEDICARE SOLUTIONS Anticipated DC Date: 01-27-2019 Planned Disposition: [facility] Facility External Planned Provider: [facility], [place] - Medicare Rehab Bed DCP follow-up note: FAXED REFERRAL UPDATE TO [facility] VIA [employer] AT [phone]. CM WAITING ADMISSION DETERMINATION FROM [facility] IN [place] INSURANCE AUTHORIZATION FOR REHAB SERVICES FROM INSURANCE. NAIN Gu MANAGEMENT. DCP- Discharge Planning Updated by [id number]: Deidre Sanders on 01/24/19 4:[address] Patient Name: GUMARO EVANS Encounter No: [id number] : 1955 Primary Insurance: [facility] MEDICARE SOLUTIONS Anticipated DC Date: 01-27-2019 Planned Disposition: [facility] Facility External Planned Provider: [facility] [place], MEDICARE REHAB BED DCP follow-up note: CM SPOKE TO PT IN ROOM REGARDING NEED FOR [facility] REHAB, DISCUSSED DECREASED FUNCTIONING AND THAT INPATIENT REHAB MAY ACCEPT AT A LATER DATE IF PT CAN TOLERATE THREE HOURS OF THERAPY. PT REPORTS UNDERSTANDING. CM PROVIDED PT WITH LISTING OF [facility] FACILITIES IN AND AROUND [place]. PT WANTS REFERRED TO [facility] IN [place], CHOICE SIGNED. PT ASKED CM TO CALL AND NOTIFY HIS MOTHER. CM CALLED AND LEFT MESSAGE FOR PT''S MOTHER, HUGH, . SOCIAL SECURITY NUMBER OBTAINED AND PROVIDED TO REGISTRATION FOR UPDATE. CM NOTIFIED RODRIGO OF [facility] OF REFERRAL AT [phone], FAXED REFERRAL TO [facility] VIA [employer] AT [phone]. CM WAITING ADMISSION DETERMINATION FROM [facility] IN [place]. Deidre Sanders, CASE MANAGEMENT DCP- Discharge Planning Updated by [id number]: Pebbles Muniz on 01/19/19 2:[address] Order received stating the the patient will need rehab [place] snf [place]. Chart reviewed and cm noted this patient has already been accepted and auth by insurance has been given for the patient to go to [facility]. This is a managed policy with requires rehab to call to verify auth still good and notify them of admit date. No further consults are required as plan is in place and all arrangements are pending a discharge order from physician. Pebbles Muniz RN, [facility] [phone] DCP- Discharge Planning Updated by [id number]: Deidre Sanders on 01/09/19 12:[address] Patient Name: GUMARO EVANS Encounter No: [id number] : 1955 Primary Insurance: [facility] MEDICARE SOLUTIONS Anticipated DC Date: 01-09-2019 Planned Disposition: Inpatient Rehab External Planned Provider: [facility] INPATIENT [facility] DCP follow-up note: CM SPOKE TO [facility], INSURANCE AUTHORIZATION FOR REHAB RECEIVED. CM NOTIFIED ALBA ADAM. WHEN DISCHARGED, NOTIFY [facility] INPATIENT REH[facility] WHO WILL THEN CONTACT [facility] NURSE WITH ROOM NUMBER WHEN READY TO ACCEPT PT AND NURSE REPORT. NAIN Gu MANAGEMENT DCP- Discharge Planning Updated by [id number]: Deidre Sanders on 01/09/19 10:[address] Patient Name: GUMARO EVANS Encounter No: [id number] : 1955 Primary Insurance: [facility] MEDICARE SOLUTIONS Anticipated DC Date: 01-09-2019 Planned Disposition: Inpatient Rehab External Planned Provider: [facility] INPATIENT [facility] DCP follow-up note: CM SPOKE TO NON PROFIT JOB TITLES SEJAL MANNING WHO ADVISED CM THAT PT IS PENDING INSURANCE AUTHORIZATION FOR INPATIENT REHAB AT [place]. CM SPOKE TO [facility] WHO ADVISED THAT AUTHORIZATION WAS SUBMITTED YESTERDAY TO PT'S INSURANCE COMPANY, THEY ARE WAITING INSURANCE DECISION. CM SPOKE TO PT IN ROOM, PT IS WILLING FOR REHAB AT [place] WITH PLAN TO MOVE IN WITH HIS MOTHER AT DISCHARGE FROM REHAB. IMPORTANT MESSAGE FROM MEDICARE PROVIDED AND EXPLAINED. CM WAITING INSURANCE AUTHORIZATION FOR INPATIENT REHAB AT [facility]. Deidre Sanders CASE MANAGEMENT DCP- Discharge Planning Updated by [id number]: Amelia Manning on 12/31/18 2:[address] Patient Name: GUMARO EVANS Admission Status: Elective Accout number: [id number] Admission Date: 12-29-2018 : 1955 Admission Diagnosis: Attending: KEMAL RALPH Current LOS: 2 Anticipated DC Date: Planned Disposition: Home Primary Insurance: [facility] MEDICARE SOLUTIONS Discharge Planning Comments: CM met with patient's Mother Dasha and daughter Blanche at bedside after explaining CM role and obtaining verbal consent. Patient is currently sedated on vent. Patient lives at home with his mother and plans to return there upon discharge. Dasha states that she recently moved the patient in with her in [place] from [place]. CM discussed availability / needs of home health and medical equipment. Dasha states that the patient has a cane but no other medical equipment. Dasha states he may need home health upon discharge. Patient may require Hemodialysis as an outpatient CM will continue to follow and assist as needed with discharge planning / needs. Large Engine Assembler: Amelia ACEVEDO - Discharge Planning Initial Assessment Updated by [id number]: Amelia Manning on 12/31/18 3:47 pm * Is the patient Alert and Oriented? No * How many steps to enter\exit or inside your home? * PCP Faith Paige APN * Pharmacy [facility] currently doesn't have one in [place] * Preadmission Environment Home with Family * ADLs Independent * Equipment Cane * List name and contact numbers for known caregivers / representatives who currently or will assist patient after discharge: Dasha Ellington - mother- [phone], Blanche Aguilar - daughter- [phone] * Verbal permission to speak to the caregivers and representatives has been obtained from the patient. N/A * Community resources currently utilized None * Additional services required to return to the preadmission environment? No * Can the patient safely return to the preadmission environment? Yes * Has this patient been hospitalized within the prior 30 days at any hospital? No Coverage Notice Reviewer: [id number] Sanders Notice Issued Date-Time: 01/31/2019 15:20 Notice Type: IM Discharge Notice Notice Delivered To: Patient Relationship to Patient: Sugar Laboratory Assistant Name: Delivery Method: HAND - Hand Delivered Dorie Days: Prior Verbal Notification: Recipient Understood Notice: Yes Recipient Signature: Yes Med Rec Note Co-signed by Attending: Coverage Notice Comment: Reviewer: YUKI Sanders Notice Issued Date-Time: 01/09/2019 11:05 Notice Type: IM Discharge Notice Notice Delivered To: Patient Relationship to Patient: Sugar Laboratory Assistant Name: Delivery Method: HAND - Hand Delivered Dorie Days: Prior Verbal Notification: Recipient Understood Notice: Yes Recipient Signature: Yes Med Rec Note Co-signed by Attending: Coverage Notice Comment: Reviewer: YUKI Sanders Notice Issued Date-Time: 01/24/2019 16:25 Notice Type: Patient Choice Letter Notice Delivered To: Patient Relationship to Patient: Sugar Laboratory Assistant Name: Delivery Method: HAND - Hand Delivered Dorie Days: Prior Verbal Notification: Recipient Understood Notice: Yes Recipient Signature: Yes Med Rec Note Co-signed by Attending: Coverage Notice Comment: RICHARD GAMBINO Last DP export: 01/31/19 2:28 p Patient Name: GUMARO EVANS Page [id number] at 1538 All edits/amendments must be made on the electronic document DICTATION DATE: 01/31/19 1537 BULK STATION AGENT: ROBERTO 01/31/191536 RPT#: [id number] DC DATE: STATUS: ADM IN [facility] [address] [place] [address] END OF REPORT
--- NOTE | 2019-01-31 17:27 | MORECARE ---
CASE MANAGEMENT DISCHARGE SUMMARY PATIENT: GUMARO EVANS UNIT: [id number] ADM DATE: 12/29/18 AGE: 63 : 51 SEX: M ROOM/BED: D.4195 AUTHOR: KEITH,DOC PHYSICIAN: REFERRING PHYSICIAN: KEMAL RALPH MD DATE OF SERVICE: 01/31/19 Discharge Plan Patient Name: GUMARO EVANS Facility: [facility]:[place] : 1955 Planned Disposition: Prison Facility Anticipated Discharge Date: 01/27/19 Discharge Date: Expected LOS: 29 Initial Reviewer: [id number] Initial Review Date: 12/31/2018 Generated: 01/31/19 6:27 pm Comments DCP- Discharge Planning Updated by [id number]: Karlos Sanders on 01/31/19 4:[address] Patient Name: GUMARO EVANS Encounter No: [id number] : 1955 Primary Insurance: [facility] MEDICARE SOLUTIONS Anticipated DC Date: 01-27-2019 Planned Disposition: Prison Facility External Planned Provider: : [facility] DCP follow-up note: CM RECEIVED MESSAGE FROM RODRIGO MOORE [facility] WHO INFORMED CM THAT THEY RECEIVED AUTHORIZATION AND WILL ACCEPT PT ON 02-01-19. THEY DO NOT HAVE TRANSPORTATION UNTIL NEXT SUNDAY. CM SPOKE TO PT IN ROOM WHO IS WILLING FOR REHAB IN [facility] AT [facility]. CM SPOKE TO DR. RALPH, INFORMED OF ABOVE, DR. RALPH INFORMED CM THAT PT WILL NEED [facility] TRANSPORT DUE TO INABILITY TO SIT SAFELY FOR DURATION OF TRANSPORTATION TO [place]. CM CALLED Dasha Saeed - pt"s mother- [phone], INFORMED HER OF DISCHARGE TO REHAB AND TRANSPORT THERE TOMORROW. CM PROVIDED REHAB CONTACT INFORMATION TO MRS. SAEED. BEDSIDE NURSE NOTIFIED. CM NOTIFIED RODRIGO MOORE [facility]. FOR DISCHARGE ON 02-01-19, CALL NURSE REPORT TO [facility] AT [phone]. PT TO TRANSPORT VIA AMBULANCE DUE TO INABILITY TO SIT SAFELY FOR DURATION OF TRANSPORTATION. Karlos Sanders CASE MANAGEMENT DCP- Discharge Planning Updated by [id number]: Karlos Sanders on 01/31/19 2:[address] Patient Name: GUMARO EVANS Admission Status: Elective Accout number: [id number] Admission Date: 12-29-2018 : 1955 Admission Diagnosis:SEPSIS, UNSPECIFIED ORGANISM Attending: KEMAL RALPH Current LOS: 33 Anticipated DC Date: 01-27-2019 Planned Disposition: Prison Facility Primary Insurance: [facility] MEDICARE SOLUTIONS PLANNED EXTERNAL PROVIDER: KONRAD RAMOS, MEDICARE REHAB BED DCP follow-up note: CM SPOKE TO ROLAND WHO INFORMED CM THAT [facility] IS SUBMITTING FOR INSURANCE AUTHORIZATION. CM SPOKE TO DR. RALPH IN CARE TEAM MEETING THIS MORNING, PT CAN DISCHARGE WHEN AUTHORIZATION IS RECEIVED. CM FAXED UPDATE AND DISCHARGE INFORMATIONTO RODRIGOJacquelyn SILVESTRE AT [phone]. CM SPOKE TO PT WHO IS IN AGREEMENT WITH DISCHARGE TO [facility] FOR REHAB. IMPORTANT MESSAGE FROM MEDICARE PROVIDED AND EXPLAINED. WHEN INSURANCE AUTHORIZATION IS RECEIVED, NOTIFY AND WHEN DISCHARGE ORDER RECEIVED, NURSE REPORT TO BE CALLED TO KONRAD VELASQUE[facility], . [facility] TO ARRANGE VAN TRANSPORT IF PT IS ABLE TO SIT SAFELY FOR DURATION OF TRANSPORT. Sound Engineer Audio Control: Karlos Sanders DCP- Discharge Planning Updated by [email or web address]: Karlos Sanders on 01/31/19 2:[address] Patient Name: GUMARO EVANS Encounter No: [id number] : 1955 Primary Insurance: [facility] MEDICARE SOLUTIONS Anticipated DC Date: 01-27-2019 Planned Disposition: Prison Facility External Planned Provider: KONRAD RAMOS MEDICARE REHAB BED LATE ENTRY FROM 01-28-19. DCP follow-up note: CM SPOKE TO ROLAND WHO INFORMED CM THAT PT NEEDS NEW AUTHORIZATION. CM SPOKE TO DR. RALPH IN CARE TEAM MEETING THIS MORNING, PT CAN DISCHARGE WHEN AUTHORIZATION IS RECEIVED. CM FAXED UPDATE TO RODRIGO SILVESTRE AT [phone]. WHEN INSURANCE AUTHORIZATION IS RECEIVED, NOTIFY AND WHEN DISCHARGE ORDER RECEIVED, FAX DISCHARGE INFORMATION TO KONRAD VELASQUEZ AT [phone]; NURSE REPORT TO BE CALLED TO [facility], . [facility] TO ARRANGE VAN TRANSPORT IF PT IS ABLE TO SIT SAFELY FOR DURATION OF TRANSPORT. NAIN FORBES DCP- Discharge Planning Updated by [id number]: Karlos Sanders on 01/29/19 6:[address] Patient Name: GUMARO EVANS Encounter No: [id number] : 1955 Primary Insurance: [facility] MEDICARE SOLUTIONS Anticipated DC Date: 01-27-2019 Planned Disposition: Prison Facility External Planned Provider: KONRAD RAMOS MEDICARE REHAB BED LATE ENTRAY FROM 01-28-19. DCP follow-up note: CM RECE[facility]ED [facility]. PT NOTIFIED AND IN AGREEMENT WITH REHAB AT [facility]. ALBA VILLALOBOS NOTIFIED. FOR DISCHARGE, FAX DISCHARGE INFORMATION TO [facility] AT [phone]; NURSE REPORT TO BE CALLED TO [facility], [phone]. [facility] TO ARRANGE VAN TRANSPORT IF PT IS ABLE TO SIT SAFELY FOR DURATION OF TRANSPORT. NAIN FORBES DCP- Discharge Planning Updated by [id number]: Karlos Sanders on 01/27/19 9:[address] Patient Name: GUMARO EVANS Encounter No: [id number] : 1955 Primary Insurance: [facility] MEDICARE SOLUTIONS Anticipated DC Date: 01-27-2019 Planned Disposition: Prison Facility External Planned Provider: Jessica Jhaveri - Medicare Rehab Bed DCP follow-up note: [facility]IA ROD[facility]IG[facility] AT [phone]. CM WAITING ADMISSION DETERMINATION FROM [facility] [place] WELL INSURANCE AUTHORIZATION FOR REHAB SERVICES FROM INSURANCE. NAIN Forbes. DCP- Discharge Planning Updated by [id number]: Karlos Sanders on 01/24/19 4:[address] Patient Name: GUMARO EVANS Encounter No: [id number] : 1955 Primary Insurance: [facility] MEDICARE SOLUTIONS Anticipated DC Date: 01-27-2019 Planned Disposition: Prison Facility External Planned Provider: [facility], MEDICARE REHAB BED DCP follow-up note: CM SPOKE TO PT IN ROOM REGARDING NEED FOR RESIDENTIAL REHAB, DISCUSSED DECREASED FUNCTIONING AND THAT INPATIENT REHAB MAY ACCEPT AT A LATER DATE IF PT CAN TOLERATE THREE HOURS OF THERAPY. PT REPORTS UNDERSTANDING. CM PROVIDED PT WITH LISTING OF RESIDENTIAL FACILITIES IN AND AROUND [place]. PT WANTS REFERRED TO [facility] IN [place], CHOICE SIGNED. PT ASKED CM TO CALL AND NOTIFY HIS MOTHER. CM CALLED AND LEFT MESSAGE FOR PT''S MOTHER, HUGH, . SOCIAL SECURITY NUMBER OBTAINED AND PROVIDED TO REGISTRATION FOR UPDATE. CM NOTIFIED RODRIGO OF [facility] OF REFERRAL AT [phone], FAXED REFERRAL TO [facility] VIA [employer] AT [phone]. CM WAITING ADMISSION DETERMINATION FROM [facility] IN [place]. Karlos Sanders, CASE MANAGEMENT DCP- Discharge Planning Updated by [id number]: Pebbles Muniz on 01/19/19 2:[address] Order received stating the the patient will need rehab [facility] snf [place]. Chart reviewed and cm noted this patient has already been accepted and auth by insurance has been given for the patient to go to Inpatient Rehab. This is a managed policy with requires rehab to call to verify auth still good and notify them of admit date. No further consults are required as plan is in place and all arrangements are pending a discharge order from physician. Pebbles Muniz RN, [facility] [phone] DCP- Discharge Planning Updated by [id number]: Karlos Sanders on 01/09/19 12:[address] Patient Name: GUMARO EVANS Encounter No: [id number] : 1955 Primary Insurance: [facility] MEDICARE SOLUTIONS Anticipated DC Date: 01-09-2019 Planned Disposition: Inpatient Rehab External Planned Provider: [facility] INPATIENT REHAB DCP follow-up note: CM SPOKE TO [facility] IN[facility]IENT [facility], INSURANCE AUTHORIZATION FOR REHAB RECEIVED. CM NOTIFIED ALBA ADAM. WHEN DISCHARGED, NOTIFY [facility] INPATIENT REHAB WHO WILL THEN CONTACT [facility] 2 NURSE WITH ROOM NUMBER WHEN READY TO ACCEPT PT AND NURSE REPORT. Karlos Sanders, CASE MANAGEMENT DCP- Discharge Planning Updated by [id number]: Karols Sanders on 01/09/19 10:[address] Patient Name: GUMARO EVANS Encounter No: [id number] : 1955 Primary Insurance: [facility] MEDICARE SOLUTIONS Anticipated DC Date: 01-09-2019 Planned Disposition: Inpatient Rehab External Planned Provider: [facility] INPATIENT REHAB DCP follow-up note: CM SPOKE TO SLEDGER SEJAL MANNING WHO ADVISED CM THAT PT IS PENDING INSURANCE AUTHORIZATION FOR INPATIENT REHAB AT [place]. CM SPOKE TO [facility] IN[facility] WHO ADVISED THAT AUTHORIZATION WAS SUBMITTED YESTERDAY TO PT'S INSURANCE COMPANY, THEY ARE WAITING INSURANCE DECISION. CM SPOKE TO PT IN ROOM, PT IS WILLING FOR REHAB AT [place] WITH PLAN TO MOVE IN WITH HIS MOTHER AT DISCHARGE FROM REHAB. IMPORTANT MESSAGE FROM MEDICARE PROVIDED AND EXPLAINED. CM WAITING INSURANCE AUTHORIZATION FOR INPATIENT REHAB AT [facility]. Karlos Sanders, CASE MANAGEMENT DCP- Discharge Planning Updated by [id number]: Amelia Manning on 12/31/18 2:[address] Patient Name: GUMARO EVANS Admission Status: Elective Accout number: [id number] Admission Date: 12-29-2018 : 1955 Admission Diagnosis: Attending: KEMAL RALPH Current LOS: 2 Anticipated DC Date: Planned Disposition: Home Primary Insurance: [facility] MEDICARE SOLUTIONS Discharge Planning Comments: CM met with patient's Mother Dasha and daughter Blanche at bedside after explaining CM role and obtaining verbal consent. Patient is currently sedated on vent. Patient lives at home with his mother and plans to return there upon discharge. Dasha states that she recently moved the patient in with her in [place] from [place]. CM discussed availability / needs of home health and medical equipment. Dasha states that the patient has a cane but no other medical equipment. Dasha states he may need home health upon discharge. Patient may require Hemodialysis as an outpatient CM will continue to follow and assist as needed with discharge planning / needs. Sound Engineer Audio Control: Amelia Manning DCPIA - Discharge Planning Initial Assessment Updated by [id number]: Amelia Manning on 12/31/18 3:47 pm * Is the patient Alert and Oriented? No * How many steps to enter\\exit or inside your home? * PCP Faith Paige APN * Pharmacy [facility] currently doesn't have one in [place] * Preadmission Environment Home with Family * ADLs Independent * Equipment Cane * List name and contact numbers for known caregivers / representatives who currently or will assist patient after discharge: Dasha Saeed - mother- [phone], Blanche Aguilar - daughter- [phone] * Verbal permission to speak to the caregivers and representatives has been obtained from the patient. N/A * Community resources currently utilized None * Additional services required to return to the preadmission environment? No * Can the patient safely return to the preadmission environment? Yes * Has this patient been hospitalized within the prior 30 days at any hospital? No Coverage Notice Reviewer: YUKI Sanders Notice Issued Date-Time: 01/09/2019 11:05 Notice Type: IM Discharge Notice Notice Delivered To: Patient Relationship to Patient: Wastewater Design Engineer Name: Delivery Method: HAND - Hand Delivered Dorie Days: Prior Verbal Notification: Recipient Understood Notice: Yes Recipient Signature: Yes Med Rec Note Co-signed by Attending: Coverage Notice Comment: Reviewer: YUKI Sanders Notice Issued Date-Time: 01/24/2019 16:25 Notice Type: Patient Choice Letter Notice Delivered To: Patient Relationship to Patient: Wastewater Design Engineer Name: Delivery Method: HAND - Hand Delivered Dorie Days: Prior Verbal Notification: Recipient Understood Notice: Yes Recipient Signature: Yes Med Rec Note Co-signed by Attending: Coverage Notice Comment: JESSICA JHAVERI Reviewer: YUKI Sanders Notice Issued Date-Time: 01/31/2019 15:20 Notice Type: IM Discharge Notice Notice Delivered To: Patient Relationship to Patient: Wastewater Design Engineer Name: Delivery Method: HAND - Hand Delivered Dorie Days: Prior Verbal Notification: Recipient Understood Notice: Yes Recipient Signature: Yes Med Rec Note Co-signed by Attending: Coverage Notice Comment: Last DP export: 01/31/19 2:38 p Patient Name: GUMARO EVANS Page [id number] at [id number] All edits/amendments must be made on the electronic document DICTATION DATE: 01/31/191726 FINAL CIGAR AND BOX EXAMINER: ROBERTO 01/31/191726 RPT#: [id number] DC DATE: STATUS: ADM IN [facility] [address] [facility] [place] [address] END OF REPORT
[2019-01-31 20:00] VITALS: BP 115/58
--- NOTE | 2019-02-01 02:26 | NUR ---
BS 166, COVERED PER S/S.
--- NOTE | 2019-02-01 03:30 | NUR ---
RESTING WITH EYES CLOSED, RESPERATIONS EVEN, NO S/S DISTRESS NOTED.
[2019-02-01 05:17] LABS: BASOPHILS 0.2 % (0-2); EOSINOPHILS 0 % (0-7); HEMATOCRIT 28.3 % (42.0-54.0); HEMOGLOBIN 9.3 g/dL (13.5-17.5); IMMATURE GRANULOCYTES 0.2 % (0-5); LYMPHOCYTES 5.9 % (15-50); MCH 29.8 pg (26.0-34.0); MCHC 32.9 g/dL (31.0-37.0); MCV 90.7 fL (80.0-100.0); MONOCYTES 3.6 % (2-11); NEUTROPHILS 90.1 % (40-80); PLATELET COUNT 60 10x3/uL (130-400); RBC 3.12 10x6/uL (4.20-6.10); WBC 6.2 10x3/uL (4.8-10.8)
[2019-02-01 05:19] LABS: CALCIUM 7.8 mg/dL (8.5-10.1); CARBON DIOXIDE 28.6 mmol/L (21.0-32.0); CREATININE - SERUM 1.6 mg/dL (0.6-1.3); PHOSPHOROUS 3.5 mg/dL (2.5-4.9); POTASSIUM - SERUM 3.6 mmol/L (3.5-5.1)
[2019-02-01 05:41] LABS: PLATELET ESTIMATE DECREASED
[2019-02-01 08:10] VITALS: BP 137/86
--- NOTE | 2019-02-01 09:38 | NUR ---
ALERT. NO C/O PAIN. RESP EVEN AND UNLABORED.
--- NOTE | 2019-02-01 09:50 | MORECARE ---
CASE MANAGEMENT DISCHARGE SUMMARY PATIENT: GUMARO EVANS UNIT: [id number] ADM DATE: 12/29/18 AGE: 63 : [birth year] SEX: M ROOM/BED: D.1965 AUTHOR: KEITH,DOC PHYSICIAN: REFERRING PHYSICIAN: KEMAL RALPH MD DATE OF SERVICE: 02/01/19 Discharge Plan Patient Name: GUMARO EVANS Facility: [facility]:[place] : 1955 Planned Disposition: Alf Facility Anticipated Discharge Date: 01/27/19 Discharge Date: Expected LOS: 29 Initial Reviewer: [id number] Initial Review Date: 12/31/2018 Generated: 02/01/19 10:50 am Comments DCP- Discharge Planning Updated by [email or web address]: Zoe De Luna on 02/01/19 8:[address] Patient Name: GUMARO EVANS Encounter No: [id number] : 1955 Primary Insurance: [facility] MED[employer] SOLUTIONS Anticipated DC Date: 01-27-2019 Planned Disposition: Alf Facility External Planned Provider: : DCP follow-up note: Patient and family in agreement with discharge plan. No changes to plan. Case management will follow and assist as needed. Zoe De Luna DCP- Discharge Planning Updated by [id number]: Deidre Sanders on 01/31/19 4:[address] Patient Name: GUMARO EVANS Encounter No: [id number] : 1955 Primary Insurance: [facility] MED[employer] SOLUTIONS Anticipated DC Date: 01-27-2019 Planned Disposition: Alf Facility External Planned Provider: : [facility] REH[facility] BED DCP follow-up note: CM RECEIVED MESSAGE FROM RODRIGO [facility] WHO INFORMED CM THAT THEY RECEIVED AUTHORIZATION AND WILL ACCEPT PT ON 02-01-19. THEY DO NOT HAVE TRANSPORTATION UNTIL NEXT SUNDAY. CM SPOKE TO PT IN ROOM WHO IS WILLING FOR REHAB IN [facility] AT [facility]. CM SPOKE TO DR. RALPH, INFORMED OF ABOVE, DR. RALPH INFORMED CM THAT PT WILL NEED [facility] TRANSPORT DUE TO INABILITY TO SIT SAFELY FOR DURATION OF TRANSPORTATION TO [place]. CM CALLED Dasha Saeed - pt"s mother- [phone], INFORMED HER OF DISCHARGE TO REHAB AND TRANSPORT THERE TOMORROW. CM PROVIDED REHAB CONTACT INFORMATION TO MRS. SAEED. BEDSIDE NURSE NOTIFIED. CM NOTIFIED RODRIGO OF [facility]. FOR DISCHARGE ON 02-01-19, CALL NURSE REPORT TO [facility] AT [phone]. PT TO TRANSPORT VIA AMBULANCE DUE TO INABILITY TO SIT SAFELY FOR DURATION OF TRANSPORTATION. Deidre Sanders, NAIN MANAGEMENT DCP- Discharge Planning Updated by [id number]: Deidre Sanders on 01/31/19 2:[address] Patient Name: GUMARO EVANS Admission Status: Elective Accout number: [id number] Admission Date: 12-29-2018 : 1955 Admission Diagnosis:SEPSIS, UNSPECIFIED ORGANISM Attending: KEMAL RALPH Current LOS: 33 Anticipated DC Date: 01-27-2019 Planned Disposition: Alf Facility Primary Insurance: [facility] MED[employer] SOLUTIONS PLANNED EXTERNAL PROVIDER: [facility] [place], MEDICARE REHAB BED DCP follow-up note: CM SPOKE TO RODRIGO [facility] WHO INFORMED THAT [facility] IS SUBMITTING FOR INSURANCE AUTHORIZATION. CM SPOKE TO DR. RALPH IN CARE TEAM MEETING THIS MORNING, PT CAN DISCHARGE WHEN AUTHORIZATION IS RECEIVED. CM FAXED UPDATE AND DISCHARGE INFORMATIONTO [facility] AT [phone]. CM SPOKE TO PT WHO IS IN AGREEMENT WITH DISCHARGE TO [facility] FOR REHAB. IMPORTANT MESSAGE FROM MEDICARE PROVIDED AND EXPLAINED. WHEN INSURANCE AUTHORIZATION IS RECEIVED, NOTIFY AND WHEN DISCHARGE ORDER RECEIVED, NURSE REPORT TO BE CALLED TO [facility], . [facility] TO ARRANGE VAN TRANSPORT IF PT IS ABLE TO SIT SAFELY FOR DURATION OF TRANSPORT. Heavy Equipment Mechanic: Deidre Sanders DCP- Discharge Planning Updated by [id number]: Deidre Sanders on 01/31/19 2:[address] Patient Name: GUMARO EVANS Encounter No: [id number] : 1955 Primary Insurance: [facility] MED[employer] SOLUTIONS Anticipated DC Date: 01-27-2019 Planned Disposition: Alf Facility External Planned Provider: [facility] [place], MEDICARE REHAB BED LATE ENTRY FROM 01-28-19. DCP follow-up note: CM SPOKE TO R[facility]IG[facility] WHO INFORMED CM THAT PT NEEDS NEW AUTHORIZATION. CM SPOKE TO DR. RALPH IN CARE TEAM MEETING THIS MORNING, PT CAN DISCHARGE WHEN AUTHORIZATION IS RECEIVED. CM FAXED UPDATE TO [facility]RIG[facility] AT [phone]. WHEN INSURANCE AUTHORIZATION IS RECEIVED, NOTIFY AND WHEN DISCHARGE ORDER RECEIVED, FAX DISCHARGE INFORMATION TO [facility] AT [phone]; NURSE REPORT TO BE CALLED TO [facility], . [facility] TO ARRANGE VAN TRANSPORT IF PT IS ABLE TO SIT SAFELY FOR DURATION OF TRANSPORT. DEIDRE SANDERS CASE MANAGEMENT DCP- Discharge Planning Updated by [id number]: Deidre Sanders on 01/29/19 6:[address] Patient Name: GUMARO EVANS Encounter No: [id number] : 1955 Primary Insurance: [facility] MED[employer] SOLUTIONS Anticipated DC Date: 01-27-2019 Planned Disposition: Alf Facility External Planned Provider: [facility] [place], MEDICARE REHAB BED LATE ENTRAY FROM 01-28-19. DCP follow-up note: CM RECEIVED CALL FROM [facility]IG[facility] ACC[facility] AT DISCHARGE. PT NOTIFIED AND IN AGREEMENT WITH REHAB AT [facility]. ALBA VILLALOBOS NOTIFIED. FOR DISCHARGE, FAX DISCHARGE INFORMATION TO [facility] AT [phone]; NURSE REPORT TO BE CALLED TO [facility], [phone]. [facility] TO ARRANGE VAN TRANSPORT IF PT IS ABLE TO SIT SAFELY FOR DURATION OF TRANSPORT. DEIDRE SANDERS CASE MANAGEMENT DCP- Discharge Planning Updated by [id number]: Deidre Sanders on 01/27/19 9:[address] Patient Name: GUMARO EVANS Encounter No: [id number] : 1955 Primary Insurance: [facility] [employer] SOLUTIONS Anticipated DC Date: 01-27-2019 Planned Disposition: Alf Facility External Planned Provider: [facility] [place] - Medicare Rehab Bed DCP follow-up note: FAXED REFERRAL UPDATE TO [facility] VIA RODRIGO AT [phone]. CM WAITING ADMISSION DETERMINATION FROM [facility] IN [place] INSURANCE AUTHORIZATION FOR REHAB SERVICES FROM INSURANCE. Deidre Sanders, CASE MANAGEMENT. DCP- Discharge Planning Updated by [id number]: Deidre Sanders on 01/24/19 4:[address] Patient Name: GUMARO EVANS Encounter No: [id number] : 1955 Primary Insurance: [facility] [employer] SOLUTIONS Anticipated DC Date: 01-27-2019 Planned Disposition: Alf Facility External Planned Provider: [facility] [place], MEDICARE REHAB BED DCP follow-up note: CM SPOKE TO PT IN ROOM REGARDING NEED FOR SNF REHAB, DISCUSSED DECREASED FUNCTIONING AND THAT INPATIENT REHAB MAY ACCEPT AT A LATER DATE IF PT CAN TOLERATE THREE HOURS OF THERAPY. PT REPORTS UNDERSTANDING. CM PROVIDED PT WITH LISTING OF SNF FACILITIES IN AND AROUND [place]. PT WANTS REFERRED TO [facility] IN [place], CHOICE SIGNED. PT ASKED CM TO CALL AND NOTIFY HIS MOTHER. CM CALLED AND LEFT MESSAGE FOR PT''S MOTHER, HUGH, . SOCIAL SECURITY NUMBER OBTAINED AND PROVIDED TO REGISTRATION FOR UPDATE. CM NOTIFIED RODRIGO OF [facility] OF REFERRAL AT [phone], FAXED REFERRAL TO [facility] VIA [facility] AT [phone]. CM WAITING ADMISSION DETERMINATION FROM [facility]. Deidre Sanders, CASE MANAGEMENT DCP- Discharge Planning Updated by [id number]: Pebbles Muniz on 01/19/19 2:[address] Order received stating the the patient will need rehab or snf at [facility]. Chart reviewed and cm noted this patient has already been accepted and auth by insurance has been given for the patient [facility]. This is a managed policy with requires rehab to call to verify auth still good and notify them of admit date. No further consults are required as plan is in place and all arrangements are pending a discharge order from physician. Pebbles Muniz RN, [facility] [phone] DCP- Discharge Planning Updated by [id number]: Deidre Sanders on 01/09/19 12:[address] Patient Name: GUMARO EVANS Encounter No: [id number] : 1955 Primary Insurance: [facility] [employer] SOLUTIONS Anticipated DC Date: 01-09-2019 Planned Disposition: Inpatient Rehab External Planned Provider: [facility] INPATIENT REHAB DCP follow-up note: CM SPOKE TO [facility], INSURANCE AUTHORIZATION FOR REHAB RECEIVED. CM NOTIFIED ALBA ADAM. WHEN DISCHARGED, NOTIFY [facility] INPATIENT REH[facility] WHO WILL THEN CONTACT MED 2 NURSE WITH ROOM NUMBER WHEN READY TO ACCEPT PT AND NURSE REPORT. Deidre Sanders CASE MANAGEMENT DCP- Discharge Planning Updated by [id number]: Deidre Sanders on 01/09/19 10:[address] Patient Name: GUMARO EVANS Encounter No: [id number] : 1955 Primary Insurance: [facility] MED[employer] SOLUTIONS Anticipated DC Date: 01-09-2019 Planned Disposition: Inpatient Rehab External Planned Provider: [facility] INPATIENT REH[facility] DCP follow-up note: CM SPOKE TO PRINTING PRESS OPERATOR APPRENTICE SEJAL MANNING WHO ADVISED CM THAT PT IS PENDING INSURANCE AUTHORIZATION FOR INPATIENT REHAB AT [place]. CM SPOKE TO [facility] IN[facility] WHO ADVISED THAT AUTHORIZATION WAS SUBMITTED YESTERDAY TO PT'S INSURANCE COMPANY, THEY ARE WAITING INSURANCE DECISION. CM SPOKE TO PT IN ROOM, PT IS WILLING FOR REHAB AT [place] WITH PLAN TO MOVE IN WITH HIS MOTHER AT DISCHARGE FROM REHAB. IMPORTANT MESSAGE FROM MEDICARE PROVIDED AND EXPLAINED. CM WAITING INSURANCE AUTHORIZATION FOR INPATIENT REHAB AT [facility]. Deidre Sanders CASE MANAGEMENT DCP- Discharge Planning Updated by [id number]: Amelia Manning on 12/31/18 2:[address] Patient Name: GUMARO EVANS Admission Status: Elective Accout number: [id number] Admission Date: 12-29-2018 : 1955 Admission Diagnosis: Attending: KEMAL RALPH Current LOS: 2 Anticipated DC Date: Planned Disposition: Home Primary Insurance: [facility] MEDICARE [facility] Discharge Planning Comments: CM met with patient's Mother Dasha and daughter Blanche at bedside after explaining CM role and obtaining verbal consent. Patient is currently sedated on vent. Patient lives at home with his mother and plans to return there upon discharge. Dasha states that she recently moved the patient in with her in [place] from [place]. CM discussed availability / needs of home health and medical equipment. Dasha states that the patient has a cane but no other medical equipment. Dasha states he may need home health upon discharge. Patient may require Hemodialysis as an outpatient CM will continue to follow and assist as needed with discharge planning / needs. Heavy Equipment Mechanic: Ameliajosué Valenzueladaniele ACEVEDO - Discharge Planning Initial Assessment Updated by [id number]: Amelia Manning on 12/31/18 3:47 pm * Is the patient Alert and Oriented? No * How many steps to enter\\exit or inside your home? * PCP Faith Paige APN * Pharmacy [facility] currently doesn't have one in [place] * Preadmission Environment Home with Family * ADLs Independent * Equipment Cane * List name and contact numbers for known caregivers / representatives who currently or will assist patient after discharge: Dasha Saeed - mother- [phone], Blanche Aguilar - daughter- [phone] * Verbal permission to speak to the caregivers and representatives has been obtained from the patient. N/A * Community resources currently utilized None * Additional services required to return to the preadmission environment? No * Can the patient safely return to the preadmission environment? Yes * Has this patient been hospitalized within the prior 30 days at any hospital? No Coverage Notice Reviewer: [id number] Sanders Notice Issued Date-Time: 01/09/2019 11:05 Notice Type: IM Discharge Notice Notice Delivered To: Patient Relationship to Patient: Dictating Machine Typist Name: Delivery Method: HAND - Hand Delivered Dorie Days: Prior Verbal Notification: Recipient Understood Notice: Yes Recipient Signature: Yes Med Rec Note Co-signed by Attending: Coverage Notice Comment: Reviewer: [id number] Sanders Notice Issued Date-Time: 01/24/2019 16:25 Notice Type: Patient Choice Letter Notice Delivered To: Patient Relationship to Patient: Dictating Machine Typist Name: Delivery Method: HAND - Hand Delivered Dorie Days: Prior Verbal Notification: Recipient Understood Notice: Yes Recipient Signature: Yes Med Rec Note Co-signed by Attending: Coverage Notice Comment: RICHARD GAMBINO Reviewer: [id number] Sanders Notice Issued Date-Time: 01/31/2019 15:20 Notice Type: IM Discharge Notice Notice Delivered To: Patient Relationship to Patient: Dictating Machine Typist Name: Delivery Method: HAND - Hand Delivered Dorie Days: Prior Verbal Notification: Recipient Understood Notice: Yes Recipient Signature: Yes Med Rec Note Co-signed by Attending: Coverage Notice Comment: Last DP export: 01/31/19 4:27 p Patient Name: GUMARO EVANS Page [id number] at 0950 All edits/amendments must be made on the electronic document DICTATION DATE: 02/01/19949 DIGITAL X RAY SERVICE ENGINEER: ROBERTO 02/01/19949 RPT#: [id number] DC DATE: STATUS: ADM IN [facility] [address] [place] [address] END OF REPORT
--- NOTE | 2019-02-01 10:28 | NUR ---
DC'D CVL R CHEST WITH CATH INTACT USING STERILE PROCEDURE. PRESSURE DRESSING APPLIED. PRESURE HELD ON SITE X 10 MIN. NO BLEEDING AT THIS TIME. DC'D TELEMETRY FOR DC TO [facility] TODAY.
--- NOTE | 2019-02-01 13:00 | NUR ---
[facility] WAS CALLED FOR TRANSPORT TO [place] [facility]. REPORT GIVEN TO SALVATORE COLVIN. [facility] JUST LEFT WITH PATIENT.
--- NOTE | 2019-02-01 13:23 | MORECARE ---
CASE MANAGEMENT DISCHARGE SUMMARY PATIENT: GUMARO EVANS UNIT: [id number] ADM DATE: 12/29/18 AGE: 63 : 51 SEX: M ROOM/BED: D.8675 AUTHOR: KEITH,DOC PHYSICIAN: REFERRING PHYSICIAN: KEMAL RALPH MD DATE OF SERVICE: 02/01/19 Discharge Plan Patient Name: GUMARO EVANS Facility: [facility]:[place] : 1955 Planned Disposition: Assisted Facility Anticipated Discharge Date: 01/27/19 Discharge Date: 02/01/2019 Expected LOS: 29 Initial Reviewer: [id number] Initial Review Date: 12/31/2018 Generated: 02/01/19 2:22 pm Comments DCP- Discharge Planning Updated by [id number]: Zoe De Luna on 02/01/19 8:[address] Patient Name: GUMARO EVANS Encounter No: [id number] : 1955 Primary Insurance: [facility] MEDICARE SOLUTIONS Anticipated DC Date: 01-27-2019 Planned Disposition: Assisted Facility External Planned Provider: : DCP follow-up note: Patient and family in agreement with discharge plan. No changes to plan. Case management will follow and assist as needed. Zoe De Luna DCP- Discharge Planning Updated by [id number]: Deidre Sanders on 01/31/19 4:[address] Patient Name: GUMARO EVANS Encounter No: [id number] : 1955 Primary Insurance: [facility] MEDICARE SOLUTIONS Anticipated DC Date: 01-27-2019 Planned Disposition: Assisted Facility External [facility] DCP follow-up note: CM RECEIVED MESSAGE FROM [facility] WHO INFORMED CM THAT THEY RECEIVED AUTHORIZATION AND WILL ACCEPT PT ON 02-01-19. THEY DO NOT HAVE TRANSPORTATION UNTIL NEXT SUNDAY. CM SPOKE TO PT IN ROOM WHO IS WILLING FOR REHAB IN [facility] AT [facility]. CM SPOKE TO DR. RALPH, INFORMED OF ABOVE, DR. RALPH INFORMED CM THAT PT WILL NEED [facility] TRANSPORT DUE TO INABILITY TO SIT SAFELY FOR DURATION OF TRANSPORTATION TO [place]. CM CALLED Dasha Saeed - pt"s mother- [phone], INFORMED HER OF DISCHARGE TO REHAB AND TRANSPORT THERE TOMORROW. PROVIDED REHAB CONTACT INFORMATION TO MRS. SAEED. BEDSIDE NURSE NOTIFIED. CM NOTIFIED [facility] OF [facility]. FOR DISCHARGE ON 02-01-19, CALL NURSE REPORT TO [facility] AT [phone]. PT TO TRANSPORT VIA AMBULANCE DUE TO INABILITY TO SIT SAFELY FOR DURATION OF TRANSPORTATION. NAIN Forbes MANAGEMENT DCP- Discharge Planning Updated by [id number]: Deidre Sanders on 01/31/19 2:[address] Patient Name: GUMARO EVANS Admission Status: Elective Accout number: [id number] Admission Date: 12-29-2018 : 1955 Admission Diagnosis:SEPSIS, UNSPECIFIED ORGANISM Attending: KEMAL RALPH Current LOS: 33 Anticipated DC Date: 01-27-2019 Planned Disposition: Assisted Facility Primary Insurance: [facility] MEDICARE SOLUTIONS PLANNED EXTERNAL PROVIDER: KONRAD RAMOS MEDICARE REHAB BED DCP follow-up note: CM SPOKE TO [facility] WHO INFORMED THAT [facility] IS SUBMITTING FOR INSURANCE AUTHORIZATION. CM SPOKE TO DR. RALPH IN CARE TEAM MEETING THIS MORNING, PT CAN DISCHARGE WHEN AUTHORIZATION IS RECEIVED. CM FAXED UPDATE AND DISCHARGE INFORMATIONTO [facility] AT [phone]. CM SPOKE TO PT WHO IS IN AGREEMENT WITH DISCHARGE TO [facility] FOR REHAB. IMPORTANT MESSAGE FROM MEDICARE PROVIDED AND EXPLAINED. WHEN INSURANCE AUTHORIZATION IS RECEIVED, NOTIFY AND WHEN DISCHARGE ORDER RECEIVED, NURSE REPORT TO BE CALLED TO [facility], . [facility] TO ARRANGE VAN TRANSPORT IF PT IS ABLE TO SIT SAFELY FOR DURATION OF TRANSPORT. Histology Tech: Deidre Sanders DCP- Discharge Planning Updated by [id number]: Deidre Sanders on 01/31/19 2:[address] Patient Name: GUMARO EVANS Encounter No: [id number] : 1955 Primary Insurance: [facility] MEDICARE SOLUTIONS Anticipated DC Date: 01-27-2019 Planned Disposition: Assisted Facility External Planned Provider: KONRAD RAMOS MEDICARE REHAB BED LATE ENTRY FROM 01-28-19. DCP follow-up note: CM SPOKE TO [facility] WHO INFORMED CM THAT PT NEEDS NEW AUTHORIZATION. CM SPOKE TO DR. RALPH IN CARE TEAM MEETING THIS MORNING, PT CAN DISCHARGE WHEN AUTHORIZATION IS RECEIVED. CM FAXED UPDATE TO [facility] FOR [facility] AT [phone]. WHEN INSURANCE AUTHORIZATION IS RECEIVED, NOTIFY AND WHEN DISCHARGE ORDER RECEIVED, FAX DISCHARGE INFORMATION TO [facility] AT [phone]; NURSE REPORT TO BE CALLED TO [facility], . [facility] TO ARRANGE VAN TRANSPORT IF PT IS ABLE TO SIT SAFELY FOR DURATION OF TRANSPORT. DEIDRE SANDERS CASE MANAGEMENT DCP- Discharge Planning Updated by [id number]: Deidre Sanders on 01/29/19 6:[address] Patient Name: GUMARO EVANS Encounter No: [id number] : 1955 Primary Insurance: [facility] MEDICARE SOLUTIONS Anticipated DC Date: 01-27-2019 Planned Disposition: Assisted Facility External Planned Provider: KONRAD ASHLEYRADO, MEDICARE REHAB BED LATE ENTRAY FROM 01-28-19. DCP follow-up note: CM RECEIVED CALL FROM [facility] WILL ACCEPT AT DISCHARGE. PT NOTIFIED AND IN AGREEMENT WITH REHAB AT [facility]. ALBA VILLALOBOS NOTIFIED. FOR DISCHARGE, FAX DISCHARGE INFORMATION TO [facility] AT [phone]; NURSE REPORT TO BE CALLED TO [facility], [phone]. [facility] TO ARRANGE VAN TRANSPORT IF PT IS ABLE TO SIT SAFELY FOR DURATION OF TRANSPORT. NAIN FORBES DCP- Discharge Planning Updated by [id number]: Deidre Sanders on 01/27/19 9:[address] Patient Name: GUMARO EVANS Encounter No: [id number] : 1955 Primary Insurance: [facility] MEDICARE SOLUTIONS Anticipated DC Date: 01-27-2019 Planned Disposition: Assisted Facility External Planned Provider: Jessica Jhaveri - Medicare Rehab Bed DCP follow-up note: FAXED REFERRAL UPDATE TO [facility] VIA [facility] AT [phone]. CM WAITING ADMISSION DETERMINATION FROM [facility] IN [place] INSURANCE AUTHORIZATION FOR REHAB SERVICES FROM INSURANCE. Deidre Sanders, CASE MANAGEMENT. DCP- Discharge Planning Updated by [id number]: Deidre Sanders on 01/24/19 4:[address] Patient Name: GUMARO EVANS Encounter No: [id number] : 1955 Primary Insurance: [facility] MEDICARE SOLUTIONS Anticipated DC Date: 01-27-2019 Planned Disposition: Assisted Facility External Planned Provider: [facility], MEDICARE REHAB BED DCP follow-up note: CM SPOKE TO PT IN ROOM REGARDING NEED FOR [facility] RE[facility], DISCUSSED DECREASED FUNCTIONING AND THAT INPATIENT REHAB MAY ACCEPT AT A LATER DATE IF PT CAN TOLERATE THREE HOURS OF THERAPY. PT REPORTS UNDERSTANDING. CM PROVIDED PT WITH LISTING OF [facility] FACILITIES IN AND AROUND [place]. PT WANTS REFERRED TO [facility] IN [place], CHOICE SIGNED. PT ASKED CM TO CALL AND NOTIFY HIS MOTHER. CM CALLED AND LEFT MESSAGE FOR PT''S MOTHER, HUGH, . SOCIAL SECURITY NUMBER OBTAINED AND PROVIDED TO REGISTRATION FOR UPDATE. CM NOTIFIED [facility] OF REFERRAL AT [phone], FAXED REFERRAL TO [facility] VIA [employer] AT [phone]. CM WAITING ADMISSION DETERMINATION FROM [facility]. Deidre Sanders, CASE MANAGEMENT DCP- Discharge Planning Updated by [id number]: Pebbles Muniz on 01/19/19 2:[address] Order received stating the the patient will need rehab or snf at [facility]. Chart reviewed and cm noted this patient has already been accepted and auth by insurance has been given for the patient to go to Inpatient Rehab. This is a managed policy with requires rehab to call to verify auth still good and notify them of admit date. No further consults are required as plan is in place and all arrangements are pending a discharge order from physician. Pebbles Muniz RN, [facility] [phone] DCP- Discharge Planning Updated by [id number]: Deidre Sandres on 01/09/19 12:[address] Patient Name: GUMARO EVANS Encounter No: [id number] : 1955 Primary Insurance: [facility] MEDICARE SOLUTIONS Anticipated DC Date: 01-09-2019 Planned Disposition: Inpatient Rehab External Planned Provider: [facility] DCP follow-up note: CM SPOKE TO [facility], INSURANCE AUTHORIZATION FOR REHAB RECEIVED. CM NOTIFIED ALBA ADAM. WHEN DISCHARGED, NOTIFY [facility] WHO WILL THEN CONTACT MED 2 NURSE WITH ROOM NUMBER WHEN READY TO ACCEPT PT AND NURSE REPORT. Deidre Sanders CASE MANAGEMENT DCP- Discharge Planning Updated by [id number]: Deidre Sanders on 01/09/19 10:[address] Patient Name: GUMARO EVANS Encounter No: [id number] : 1955 Primary Insurance: [facility] MEDICARE SOLUTIONS Anticipated DC Date: 01-09-2019 Planned Disposition: Inpatient Rehab External Planned Provider: [facility] DCP follow-up note: CM SPOKE TO [employer] ATTENDANT AND CASHIER SEJAL MANNING WHO ADVISED CM THAT PT IS PENDING INSURANCE AUTHORIZATION FOR INPATIENT REHAB AT [facility]. CM SPOKE TO [facility] WHO ADVISED THAT AUTHORIZATION WAS SUBMITTED YESTERDAY TO PT'S INSURANCE COMPANY, THEY ARE WAITING INSURANCE DECISION. CM SPOKE TO PT IN ROOM, PT IS WILLING FOR REHAB AT [facility] WITH PLAN TO MOVE IN WITH HIS MOTHER AT DISCHARGE FROM REHAB. IMPORTANT MESSAGE FROM MEDICARE PROVIDED AND EXPLAINED. CM WAITING INSURANCE AUTHORIZATION FOR INPATIENT REHAB AT [facility]. Deidre Sanders CASE MANAGEMENT DCP- Discharge Planning Updated by [id number]: Amelia Manning on 12/31/18 2:[address] Patient Name: GUMARO EVANS Admission Status: Elective Accout number: [id number] Admission Date: 12-29-2018 : 1955 Admission Diagnosis: Attending: KEMAL RALPH Current LOS: 2 Anticipated DC Date: Planned Disposition: Home Primary Insurance: [facility] MEDICARE SOLUTIONS Discharge Planning Comments: CM met with patient's Mother Dasha and daughter Blanche at bedside after explaining CM role and obtaining verbal consent. Patient is currently sedated on vent. Patient lives at home with his mother and plans to return there upon discharge. Dasha states that she recently moved the patient in with her in [place] from [place]. CM discussed availability / needs of home health and medical equipment. Dasha states that the patient has a cane but no other medical equipment. Dasha states he may need home health upon discharge. Patient may require Hemodialysis as an outpatient CM will continue to follow and assist as needed with discharge planning / needs. Histology Tech: Amelia Manning CURTIS - Discharge Planning Initial Assessment Updated by [id number]: Amelia Zhen on 12/31/18 3:47 pm * Is the patient Alert and Oriented? No * How many steps to enter\\exit or inside your home? * PCP Faith Paige APN * Pharmacy [facility] currently doesn't have one in [place] * Preadmission Environment Home with Family * ADLs Independent * Equipment Cane * List name and contact numbers for known caregivers / representatives who currently or will assist patient after discharge: Dasha Saeed - mother- [phone], Blanche Aguilar - daughter- [phone] * Verbal permission to speak to the caregivers and representatives has been obtained from the patient. N/A * Community resources currently utilized None * Additional services required to return to the preadmission environment? No * Can the patient safely return to the preadmission environment? Yes * Has this patient been hospitalized within the prior 30 days at any hospital? No Coverage Notice Reviewer: [id number] Sanders Notice Issued Date-Time: 01/09/2019 11:05 Notice Type: IM Discharge Notice Notice Delivered To: Patient Relationship to Patient: Malware Analyst Name: Delivery Method: HAND - Hand Delivered Dorie Days: Prior Verbal Notification: Recipient Understood Notice: Yes Recipient Signature: Yes Med Rec Note Co-signed by Attending: Coverage Notice Comment: Reviewer: YUKI Sanders Notice Issued Date-Time: 01/24/2019 16:25 Notice Type: Patient Choice Letter Notice Delivered To: Patient Relationship to Patient: Malware Analyst Name: Delivery Method: HAND - Hand Delivered Dorie Days: Prior Verbal Notification: Recipient Understood Notice: Yes Recipient Signature: Yes Med Rec Note Co-signed by Attending: Coverage Notice Comment: JESSICA JHAVERI Reviewer: [id number] Sanders Notice Issued Date-Time: 01/31/2019 15:20 Notice Type: IM Discharge Notice Notice Delivered To: Patient Relationship to Patient: Malware Analyst Name: Delivery Method: HAND - Hand Delivered Dorie Days: Prior Verbal Notification: Recipient Understood Notice: Yes Recipient Signature: Yes Med Rec Note Co-signed by Attending: Coverage Notice Comment: Last DP export: 02/01/19 8:50 a Patient Name: GUMARO EVANS Page [phone] at 1323 All edits/amendments must be made on the electronic document DICTATION DATE: 02/01/19 1322 OIL LEASE BROKER: ROBERTO 02/01/19 1322 RPT#: [id number] DC DATE:02/01/19 STATUS: DIS IN [facility] [address] [place] [address] END OF REPORT
== END 2019-02-01 13:02 | DRG 853 ==
LOC: D.ICU 13:56 → D.M2 15:49 → D.ICU 15:49 → D.M2 01-08 16:13
PROVIDERS: Family Medicine; General Practice; Internal Medicine Hematology & Oncology; Internal Medicine Nephrology; Internal Medicine Pulmonary Disease; Surgery; ADMIT Internal Medicine Nephrology; ATTEND Internal Medicine Nephrology
PROC: 05H533Z Insertion of Infusion Device into Right Subclavian Vein, Percutaneous Approach (ICD-10-PCS; 2018-12-29)
PROC: 5A1955Z Respiratory Ventilation, Greater than 96 Consecutive Hours (ICD-10-PCS; principal; 2018-12-30)
PROC: 0BH17EZ Insertion of Endotracheal Airway into Trachea, Via Natural or Artificial Opening (ICD-10-PCS; 2018-12-30)
PROC: 05HN33Z Insertion of Infusion Device into Left Internal Jugular Vein, Percutaneous Approach (ICD-10-PCS; 2018-12-31)
PROC: 0HBCXZX Excision of Left Upper Arm Skin, External Approach, Diagnostic (ICD-10-PCS; 2019-01-02)
PROC: 0QB23ZX Excision of Right Pelvic Bone, Percutaneous Approach, Diagnostic (ICD-10-PCS; 2019-01-15)
PROC: 07DR3ZX Extraction of Iliac Bone Marrow, Percutaneous Approach, Diagnostic (ICD-10-PCS; 2019-01-15)
PROC: 0DH63UZ Insertion of Feeding Device into Stomach, Percutaneous Approach (ICD-10-PCS; 2019-01-17)
DX: A41.9 Sepsis, unspecified organism (principal); R65.21 Severe sepsis with septic shock; J96.01 Acute respiratory failure with hypoxia; E43 Unspecified severe protein-calorie malnutrition; I50.23 Acute on chronic systolic (congestive) heart failure; E87.2 Acidosis; N17.9 Acute kidney failure, unspecified; D68.9 Coagulation defect, unspecified; G72.81 Critical illness myopathy; E87.0 Hyperosmolality and hypernatremia; L27.0 Generalized skin eruption due to drugs and medicaments taken internally; E11.9 Type 2 diabetes mellitus without complications; I11.0 Hypertensive heart disease with heart failure; F89 Unspecified disorder of psychological development; I27.20 Pulmonary hypertension, unspecified; D69.6 Thrombocytopenia, unspecified; R62.50 Unspecified lack of expected normal physiological development in childhood